=== PATIENT | female | born 1990 | race Caucasian/White ===

== ENCOUNTER 2024-11-28 09:18 | Outpatient (OUT) | payer OTHER, SELFPAY ==
[2024-11-28 10:02] LABS: Basophils Percent Auto 0.2 % (0.2-2.0); Eosinophils Absolute Auto 0.1 10^3/uL (0.0-0.7); Eosinophils Percent Auto 1.5 % (0.9-7.0); Hematocrit 33.9 % (36.0-48.0); Hemoglobin 11.2 g/dL (12.0-16.0); Immature Granulocytes Abs Auto 0.03 10^3/uL (0.00-0.03); Immature Granulocytes Pct Auto 0.3 % (0.0-0.5); Lymphocytes Absolute Auto 1.9 10^3/uL (1.2-3.8); Lymphocytes Percent Auto 21.3 % (20.5-60.0); Mean Corpuscular Hemoglobin 29.4 pg (26.7-34.0); Mean Platelet Volume 9.4 fL (9.5-13.5); Monocytes Absolute Auto 0.8 10^3/uL (0.3-0.8); Monocytes Percent Auto 8.7 % (1.7-12.0); Neutrophils Absolute Auto 5.9 10^3/uL (1.4-6.5); Platelet Count 355 10^3/uL (150-450); Red Blood Count 3.81 10^6/uL (4.20-5.40); Red Cell Distribution Width 11.9 % (11.0-15.0); White Blood Count 8.7 10^3/uL (4.0-11.0)
[2024-11-28 10:04] LABS: BOX Test Reference Lab UNITY; BOX Test Sent Out UNITY
[2024-11-28 10:33] LABS: Amphetamine Screen Urine NEGATIVE (NEGATIVE); Barbiturates Screen Urine NEGATIVE (NEGATIVE); Benzodiazepines Screen Urine NEGATIVE (NEGATIVE); Buprenorphine Screen Urine NEGATIVE (NEGATIVE); Cannabinoid Screen Urine NEGATIVE (NEGATIVE); Cocaine Screen Urine NEGATIVE (NEGATIVE); Methadone Screen Urine NEGATIVE (NEGATIVE); Methamphetamines Screen Urine NEGATIVE (NEGATIVE); Opiate Screen Urine NEGATIVE (NEGATIVE); Oxycodone Screen Urine NEGATIVE (NEGATIVE); Phencyclidine Screen Urine NEGATIVE (NEGATIVE); Tricyclic Antidepressant Urine NEGATIVE (NEGATIVE)
[2024-11-28 10:37] LABS: Estimated Average Glucose 100 mg/dL; Glycohemoglobin A1C 5.1 % (4.5-6.2)
[2024-11-29 06:08] LABS: HBsAg Screen Negative (Negative); HCV Ab Non Reactive (Non Reactive); HIV Ab/p24 Ag Screen Non Reactive (Non Reactive)
[2024-11-29 07:10] LABS: Rubella Antibodies, IgG 1.26 index (Immune >0.99)
[2024-11-29 12:28] LABS: Rapid Plasma Reagin, Quant Non Reactive titer (NonRea<1:1)
== END 2024-11-28 09:19 | disposition home or self-care (01) ==
PROVIDERS: PCP Internal Medicine; Visit Provider Obstetrics & Gynecology
DX: Z34.01 Encounter for supervision of normal first pregnancy, first trimester (principal); Z36.0 Encounter for antenatal screening for chromosomal anomalies; N92.6 Irregular menstruation, unspecified
CPT/HCPCS: 36415; 80307; 83036; 85025; 86592; 86762; 86803; 86850; 86900; 86901; 87086; 87150; 87186; 87340; 87389

== ENCOUNTER 2024-12-18 11:38 | Emergency (ER) | payer OTHER, SELFPAY ==
--- OUTSIDE RECORDS SUMMARY | 2024-12-18 11:46 | XMS_ITS | CCD ---
Author Organization [facility] Care Team Providers Care Mortgage Loan Officer Name Role Phone ALISA ., UMA Attending Unavailable YUHAS, DR BELTRE Primary Care Unavailable ALISA ., UMA Admitting Unavailable ZIEBER, DR AP Witt Consulting Unavailable ALISA ., UMA Consulting Unavailable YUMAYA, DR BELTRE Primary Care Unavailable RACHEL ., DR KAUR Attending Unavailable RACHEL ., DR KAUR Admitting Unavailable RACHEL ., DR KAUR Admitting Unavailable RACHEL ., DR KAUR Consulting Unavailable MIS, DR PERKINS Primary Care Unavailable RACHEL ., DR KAUR Attending Unavailable RACHEL ., DR KUAR Admitting Unavailable MISC, DR PERKINS Primary Care Unavailable RACHEL ., DR KAUR Consulting Unavailable RACHEL ., DR KAUR Attending Unavailable ZIEBER, DR AP Witt Consulting Unavailable RACHEL ., DR AKUR Consulting Unavailable YUCINDAS, DR BELTRE Primary Care Unavailable RACHEL ., DR KAUR Attending Unavailable RACHEL ., DR KAUR Admitting Unavailable RACHEL ., DR KAUR Admitting Unavailable RACHEL ., DR KAUR Consulting Unavailable YUCINDAS, DR BELTRE Primary Care Unavailable RACHEL ., DR KAUR Attending Unavailable RACHEL ., DR KAUR Admitting Unavailable RACHEL ., DR KAUR Consulting Unavailable RACHEL ., DR KAUR Attending Unavailable YUCINDAS, DR BELTRE Primary Care Unavailable RACHEL ., DR KAUR Admitting Unavailable YUHAS, DR BELTRE Primary Care Unavailable RACHEL ., DR KAUR Attending Unavailable GAYLORD, DR REINA Holly Consulting Unavailable RACHEL ., DR KAUR Consulting Unavailable RACHEL ., DR KAUR Admitting Unavailable RACHEL ., DR KAUR Consulting Unavailable DAJA, DR BELTRE Primary Care Unavailable RACHEL ., DR KAUR Attending Unavailable RACHEL ., DR KAUR Consulting Unavailable YUHAS, DR BELTRE Primary Care Unavailable RACHEL ., DR KAUR Attending Unavailable RACHEL ., DR KAUR Admitting Unavailable SHAYNE UAGLDE Consulting Unavailable RACHEL ., DR KAUR Procedure Practitioner Unavail able CRISTY RODRIGUEZ Consulting Unavailable DAJA, DR BELTRE Primary Care Unavailable ROGELIO ., CRISSY Attending Unavailable ARI ., BEBE KABA Consulting Unavailkatarina MERCADO ., CRISSY Admitting Unavailable ALLEN ., J CARLOS Consulting Unavailable ALLEN ., J CARLOS Attending Unavailable ALLEN ., J CARLOS Admitting Unavailable [facility], DR PERKINS Primary Care Unavailable YUHAS, ALEXSANDER Garber Referring Unavailable YUHAS, ALEXSANDER Garber Primary Care Unavailable YUHAS, ALEXSANDER Garber Attending Unavailable YUHAS, ALEXSANDER Garber Referring Unavailable YUHAS, ALEXSANDER Garber Primary Care Unavailable YUHAS, ALEXSANDER Garber Attending Unavailable YUHAS, ALEXSANDER Garber Referring Unavailable YUHAS, ALEXSANDER Garber Primary Care Unavailable KIRA BERRY Attending Unavailable YUHAS, ALEXSANDER Garber Referring Unavailable YUHAS, ALEXSANDER Garber Primary Care Unavailable YUHAS, ALEXSANDER Garber Attending Unavailable YUHAS, ALEXSANDER Garber Referring Unavailable YUHAS, ALEXSANDER Garber Primary Care Unavailable YUHAS, ALEXSANDER Garber Attending Unavailable YUHAS, ALEXSANDER Garber Referring Unavailable YUHAS, ALEXSANDER Garber Primary Care Unavailable YUHAS, ALEXSANDER Garber Attending Unavailable YUHAS, ALEXSANDER Garber Referring Unavailable YUHAS, ALEXSANDER Garber Primary Care Unavailable Leilas Alexsander RICE Primary Care Provider Alexsander Farnsworth DO Primary Care Provider [phone] Medications Current Medications Medication Drug Class(es) Dates Sig (Normalized) Sig (Original) norethindrone 0.35 mg oral tablet (1 source) Start: 04-14-2023 End: 11-18-2024 take 1 tablet by mouth in the morning norethindrone (Micronor) 0.35 MG tablet Indications: control counseling Take 1 tablet (0.35 mg) by mouth in the morning. 28 tablet 11 04/14/2023 11/18/2024 Discontinued (Therapy completed) Vit-Fe Fumarate-FA ( Vitamin) 27-0.8 MG tablet (2 sources) Vit-Fe Fumarate-FA ( Vitamin) 27-0.8 MG tablet 1 (one) time each day at the same time Active Completed/Discontinued Medications Medication Drug Class(es) Dates Sig (Normalized) Sig (Original) ondansetron 4 mg disintegrating oral tablet (2 sources) Serotonin-3 Receptor Antagonist Start: 01-25-2024 End: 05-16-2024 take 1 tablet by mouth every eight hours as needed for nausea and vomiting ondansetron ODT (ZOFRAN ODT) 4 mg disintegrating tablet Dissolve 1 tablet (4 mg total) on tongue every 8 (eight) hours as needed for nausea or vomiting. 20 tablet 01/25/2024 05/16/2024 Discontinued (Therapy completed) Problems Active Problems Problem Classification Problem Date Documented Date Episodic/Chronic Deficiency and other anemia (1 source) Anemia, unspecified; Translations: [ANEMIA UNSPECIFIED] Onset: 03-11-2023 Episodic Genitourinary symptoms and ill-defined conditions (1 source) Personal history of urinary (tract) infections; Translations: [PERS HX URINARY TRACT INFECTIONS] Onset: 03-11-2023 Episodic Menstrual disorders (5 sources) Irregular menstruation, unspecified; Translations: [Missed period] Onset: 08-09-2022 Chronic Other aftercare (1 source) Other termite inspector (current) drug therapy; Translations: [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] Onset: 03-11-2023 Episodic Other circulatory disease (1 source) Other specified symptoms and signs involving the circulatory and respiratory systems; Translations: [Other specified symptoms and signs involving the circulatory and respiratory systems] Onset: 08-19-2024 Episodic Other complications of ; puerperium affecting management of mother (1 source) Anemia complicating childbirth; Translations: [ANEMIA COMPLICATING CHILDBIRTH] Onset: 03-11-2023 Chronic Other complications of ; puerperium affecting management of mother (1 source) Anemia complicating the puerperium; Translations: [ANEMIA COMPLICATING THE PUERPERIUM] Onset: 03-11-2023 Chronic Other complications of (1 source) Anemia complicating , second trimester; Translations: [ANEMIA COMP SECOND TRI] Onset: 12-11-2022 Chronic Other female genital disorders (1 source) Personal history of other diseases of the female genital tract; Translations: [PERSONAL HX OTH DZ FE GENITAL TRACT] Onset: 03-11-2023 Episodic Other and delivery including normal (17 sources) Encounter for routine follow-up; Translations: [Single live ] Onset: 08-04-2022 Episodic Other screening for suspected conditions (not mental disorders or infectious disease) (6 sources) Encounter for screening for Streptococcus B; Translations: [Encounter for screening, unspecified] Onset: 08-13-2022 Episodic Previous (3 sources) Maternal care for low transverse scar from previous delivery; Translations: [MAT CARE LW TRANS SCAR PREV C/S DEL] Onset: 03-05-2023 Episodic Residual codes; unclassified (1 source) 39 weeks gestation of ; Translations: [39 WEEKS GESTATION OF ] Onset: 03-11-2023 Episodic Residual codes; unclassified (1 source) Family history of diabetes mellitus; Translations: [FAMILY HISTORY OF DIABETES MELLITUS] Onset: 03-11-2023 Episodic Residual codes; unclassified (1 source) Family history of stroke; Translations: [FAMILY HISTORY OF STROKE] Onset: 03-11-2023 Episodic Residual codes; unclassified (1 source) Family history of other disorder of lipoprotein metabolism and other lipidemia; Translations: [FAM HX D/O LIPOPR METAB OTH LIPID] Onset: 03-11-2023 Episodic Residual codes; unclassified (1 source) Family history of arthritis; Translations: [FAMILY HISTORY OF ARTHRITIS] Onset: 03-11-2023 Episodic Residual codes; unclassified (1 source) 35 weeks gestation of ; Translations: [35 WEEKS GESTATION OF ] Onset: 02-15-2023 Episodic Residual codes; unclassified (1 source) Gestation period, 10 weeks; Translations: [10 weeks gestation of ] 11-18-2024 Episodic Unclassified (1 source) CONTACT W/AND (SUSP) EXPOS COVID-19; Translations: [CONTACT W/AND (SUSP) EXPOS COVID-19] Onset: 10-14-2022 Unclassified (1 source) low bp 86/66 Onset: 05-16-2024 Past or Other Problems Problem Classification Problem Date Documented Date Episodic/Chronic Cardiac dysrhythmias (5 sources) Palpitations; Translations: [Palpitations] Onset: 05-16-2024 05-16-2024 Episodic Conditions associated with dizziness or vertigo (6 sources) Dizziness and giddiness; Translations: [Dizziness] Onset: 12-09-2022 Episodic Fluid and electrolyte disorders (2 sources) Hypokalemia; Translations: [Dehydration] Onset: 10-14-2022 Episodic Headache; including migraine (1 source) Headache Onset: 01-25-2024 Episodic Immunizations and screening for infectious disease (2 sources) Encounter for screening for infections with a predominantly sexual mode of transmission; Translations: [Contact with and (suspected) exposure to infections with a predominantly sexual mode of transmission] Onset: 08-13-2022 Episodic Mood disorders (5 sources) Mood disorders Onset: 05-16-2024 Resolved: 08-19-2024 05-16-2024 Nausea and vomiting (5 sources) Nausea with vomiting, unspecified; Translations: [Vomiting] Onset: 10-11-2022 Episodic Noninfectious gastroenteritis (6 sources) Noninfective gastroenteritis and colitis, unspecified; Translations: [Gastroenteritis] Onset: 01-25-2024 Resolved: 01-28-2024 01-28-2024 Episodic Other circulatory disease (2 sources) Orthostatic hypotension; Translations: [Orthostatic hypotension] Onset: 05-16-2024 Episodic Other circulatory disease (3 sources) Orthostatic hypotension; Translations: [Orthostatic hypotension] 05-16-2024 Episodic Other circulatory disease (1 source) Upper respiratory tract finding; Translations: [Other specified symptoms and signs involving the circulatory and respiratory systems] 08-19-2024 Episodic Other complications of (1 source) Uterine size-date discrepancy, second trimester; Translations: [UTERINE SZ-DATE DISCREPANCY 2ND TRI] Onset: 12-18-2022 Episodic Other complications of (1 source) Unspecified infection of urinary tract in , second trimester; Translations: [UNS INF URINARY TRACT PREG 2ND TRI] Onset: 12-11-2022 Episodic Other complications of (1 source) Other specified related conditions, second trimester; Translations: [OTH SPEC PREG RELATED COND 2ND TRI] Onset: 12-11-2022 Episodic Other diseases of kidney and ureters (5 sources) Hydronephrosis; Translations: [Unspecified hydronephrosis] Onset: 05-14-2017 05-14-2017 Episodic Other female genital disorders (1 source) Other specified noninflammatory disorders of vagina; Translations: [OTH SPEC NONINFLAMMATORY D/O VAGINA] Onset: 11-27-2022 Episodic Other upper respiratory disease (1 source) Pain in throat Onset: 01-25-2024 Episodic Other upper respiratory infections (2 sources) Acute pharyngitis, unspecified; Translations: [Pharyngitis] Onset: 01-25-2024 01-25-2024 Episodic Residual codes; unclassified (1 source) 27 weeks gestation of ; Translations: [27 WEEKS GESTATION OF ] Onset: 12-18-2022 Episodic Residual codes; unclassified (1 source) 26 weeks gestation of ; Translations: [26 WEEKS GESTATION OF ] Onset: 12-11-2022 Episodic Residual codes; unclassified (1 source) 17 weeks gestation of ; Translations: [17 WEEKS GESTATION OF ] Onset: 10-14-2022 Episodic Residual codes; unclassified (1 source) Other general symptoms and signs; Translations: [Other general symptoms and signs] Onset: 01-25-2024 Episodic Residual codes; unclassified (1 source) Viral syndrome; Translations: [Other general symptoms and signs] 01-25-2024 Episodic Urinary tract infections (6 sources) Urinary tract infection, site not specified; Translations: [Urinary tract infectious disease] Onset: 05-14-2017 05-14-2017 Episodic Results Test Name Value Interpretation Reference Range Facility ALL CBC WITH AUTO DIFFon BASOPHILS ABSOLUTE AUTO 0 [facility] Basophils/100 WBC (Bld) 0.2 % 0.2 - 2.0 % [facility] Eosinophils/100 WBC (Bld) 1.5 % 0.9 - 7.0 % [facility] Erythrocyte distribution width (RBC) [Ratio] 11.9 % 11.0 - 15.0 % [facility] Hematocrit (Bld) [Volume fraction] 33.9 % Low 36.0 - 48.0 % [facility] Hem[facility] (Bld) [Mass/Vol] 11.2 g/dL Low 12.0 - 16.0 g/dL [facility] IMMATURE GRANULOCYTES ABS AUTO 0.03 [facility] Immature granulocytes/100 WBC (Bld) 0.3 % 0.0 - 0.5 % [facility] Interpretation and review of laboratory results Abnormal [facility] LYMPHOCYTES ABSOLUTE AUTO 1.9 [facility] Lymphocytes/100 WBC (Bld) 21.3 % 20.5 - 60.0 % [facility] MCH (RBC) [Entitic mass] 29.4 pg 26.7 - 34.0 pg [facility] MCHC (RBC) [Mass/Vol] 33 g/dL 29.9 - 35.2 g/dL [facility] MCV (RBC) [Entitic vol] 89 fL 81.0 - 99.0 fL [facility] MONOCYTES ABSOLUTE AUTO 0.8 [facility] Monocytes/100 WBC (Bld) 8.7 % 1.7 - 12.0 % [facility] NEUTROPHILS ABSOLUTE AUTO 5.9 [facility] Neutrophils/100 WBC (Bld) 68 % 43.0 - 75.0 % [facility] Platelet mean volume (Bld) [Entitic vol] 9.4 fL Low 9.5 - 13.5 fL [facility] # 0.1 [facility] e TB PLT 355 [facility] e TB RBC 3.81 Low [facility] e TB WBC 8.7 [facility] e CLINISYNC [facility] e HCG ( test) Ql (U)o n 11-18-2024 Interpretation and review of laboratory results Abnormal [facility] Preg Test, Ur Positive Negative [facility] Urinalysis macro (dipstick) panel (U)on 11-18-2024 Bilirubin, UA Negative Negative - 4(70) +++ mg/dL [facility] Blood, UA Positive Negative - 50 Otoniel/mcL [facility] Comment on above: trace Clarity, UA Cloudy [facility] re Color, UA Yellow [facility] e Glucose, UA Negative Negative - 1999(110) ++++ mg/dL [facility] Interpretation and review of laboratory results Abnormal [facility] Ketones, UA Negative Negative - 160(16) ++++ mg/dL [facility] Leukocytes, UA Moderate Negative - 500+++ [place]/mcL [facility] Nitrite, UA Negative Negative - Positive [facility] pH, UA 6.5 5 - 9 [facility] e Protein, UA Positive Negative - 1999(20) ++++ mg/dL [facility] Comment on above: 100 Spec Grav, UA 1.02 1 - 1.03 [facility] Urobilinogen, UA 0.2 0.2 - 12 mg/dL [facility] POCT Influenza A/Influenza B /SARS-COV-2 Veritoron 08-19-2024 External Poct Influenza A Antigen Negative [facility] External Poct Influenza B Antigen Negative [facility] SARS-CoV-2 (COVID-19) Ag IA.rapid Ql (Resp) Negative [facility] POCT rapid strep Aon 024 S. pyogenes Ag IA Ql (Unsp spec) Negative Negative [facility] CBC AND AUTO DIFFon 05-16-20 24 ABSOLUTE BASOPHIL 0.0 X10E9/L Normal 0.0-0.2 [facility] Comment on above: Performed By: #### C BCA, CMP, FEPR, TSHR, 2132-06 #### [facility] ([id number]) [address], [address] [place] [address] ABSOLUTE NEUTROPHIL 7.0 X10E9/L High 1.5-6.6 [facility] Comment on above: Performed By: #### C BCA, CMP, FEPR, TSHR, 2132-06 #### [facility] ([id number]) [address], [address] [place] [address] Basophils/100 WBC (Bld) 0.3 % Normal [facility] Comment on above: Performed By: #### C BCA, CMP, FEPR, TSHR, 2132-06 #### [facility] ([id number]) [address], [address] [place] [address] Eosinophils (Bld) [#/Vol] 0.1 10*3/uL Normal 0.0-0.4 [facility] Comment on above: Performed By: #### C BCA, CMP, FEPR, TSHR, 2132-06 #### [facility] ([id number]) [address], [address] [place] [address] Eosinophils/100 WBC (Bld) 1.4 % Normal [facility] Comment on above: Performed By: #### C BCA, CMP, FEPR, TSHR, 2132-06 #### [facility] ([id number]) [address] [place] [address] Erythrocyte distribution width (RBC) [Ratio] 13.3 % Normal 11.5-15.0 [facility] Comment on above: Performed By: #### C BCA, CMP, FEPR, TSHR, 2132-06 #### [facility] ([id number]) [address] [address] Hematocrit (Bld) [Volume fraction] 38.8 % Normal 35-47 [facility] Comment on above: Performed By: #### C BCA, CMP, FEPR, TSHR, 2132-06 #### [facility] ([id number]) [address] [address] Hemoglobin (Bld) [Mass/Vol] 13.0 g/dL Normal 11.7-15.5 [facility] Comment on above: Performed By: #### C BCA, CMP, FEPR, TSHR, 2132-06 #### [facility] ([id number]) [address] [address] Lymphocytes (Bld) [#/Vol] 2.4 10*3/uL Normal 1.0-3.5 [facility] Comment on above: Performed By: #### C BCA, CMP, FEPR, TSHR, 2132-06 #### [facility] ([id number]) [address] [address] Lymphocytes/100 WBC (Bld) 23.1 % Normal [facility] Comment on above: Performed By: #### C BCA, CMP, FEPR, TSHR, 2132-06 #### [facility] ([id number]) [address] [address] MCH (RBC) [Entitic mass] 30.0 pg Normal 27-34 [facility] Comment on above: Performed By: #### C BCA, CMP, FEPR, TSHR, 2132-06 #### [facility] ([id number]) [address] [place] [address] MCHC (RBC) [Mass/Vol] 33.5 g/dL Normal 32-36 [facility] Comment on above: Performed By: #### C BCA, CMP, FEPR, TSHR, 2132-06 #### [facility] ([id number]) [address] [place] [address] MCV (RBC) [Entitic vol] 90 fL Normal 80-100 [facility] Comment on above: Performed By: #### C BCA, CMP, FEPR, TSHR, 2132-06 #### [facility] ([id number]) [address] [place] [address] Monocytes (Bld) [#/Vol] 0.7 10*3/uL Normal 0-0.9 [facility] Comment on above: Performed By: #### C BCA, CMP, FEPR, TSHR, 2132-06 #### [facility] ([id number]) [address] [place] [address] Monocytes/100 WBC (Bld) 7.0 % Normal [facility] Comment on above: Performed By: #### C BCA, CMP, FEPR, TSHR, 2132-06 #### [facility] ([id number]) [address] [place] [address] Neutrophils/100 WBC (Bld) 68.2 % Normal [facility] Comment on above: Performed By: #### C BCA, CMP, FEPR, TSHR, 2132-06 #### [facility] ([id number]) [address] [facility] [address] [place] [address] Platelet mean volume (Bld) [Entitic vol] 8.3 fL Normal 7-12 [facility] Comment on above: Performed By: #### C BCA, CMP, FEPR, TSHR, 2132-06 #### [facility] ([id number]) [address], [address] [place] [address] Platelets (Bld) [#/Vol] 348 10*3/uL Normal 150-450 [facility] Comment on above: Performed By: #### C BCA, CMP, FEPR, TSHR, 2132-06 #### [facility] ([id number]) [address] [place] [address] RBC COUNT 4.33 X10E12/L Normal 3.80-5.20 [facility] Comment on above: Performed By: #### C BCA, CMP, FEPR, TSHR, 2132-06 #### [facility] ([id number]) [address], [address] [place] [address] WBC (Bld) [#/Vol] 10.2 10*3/uL Normal 4.0-11.0 [facility] Comment on above: Performed By: #### C BCA, CMP, FEPR, TSHR, 2132-06 #### [facility] ([id number]) [address], [address] [place] [address] [address] [facility] 05-16-2024 Albumin [Mass/Vol] 4.7 g/dL Normal 3.2-5.3 [facility] Comment on above: Performed By: #### C BCA, CMP, FEPR, TSHR, 2132-06 #### [facility] ([id number]) [address], [address] [place] [address] ALP [Catalytic activity/Vol] 94 U/L Normal 39-130 [facility] Comment on above: Performed By: #### C BCA, CMP, FEPR, TSHR, 2132-06 #### [facility] ([id number]) [address], [address] [place] [address] ALT [Catalytic activity/Vol] 16 U/L Normal 0-31 [facility] Comment on above: Performed By: #### C BCA, CMP, FEPR, TSHR, 2132-06 #### [facility] ([id number]) [address] [place] [address] Anion gap [Moles/Vol] 9 mmol/L Normal 5-15 [facility] Comment on above: Performed By: #### C BCA, CMP, FEPR, TSHR, 2132-06 #### [facility] ([id number]) [address] [place] [address] AST [Catalytic activity/Vol] 23 U/L Normal 0-41 [facility] Comment on above: Performed By: #### C BCA, CMP, FEPR, TSHR, 2132-06 #### [facility] ([id number]) [address], [address] [place] [address] Bilirubin [Mass/Vol] 0.2 mg/dL Low 0.3-1.2 [facility] Comment on above: Performed By: #### C BCA, CMP, FEPR, TSHR, 2132-06 #### [facility] ([id number]) [address] [place] [address] Calcium [Mass/Vol] 9.8 mg/dL Normal 8.5-10.5 [facility] Comment on above: Performed By: #### C BCA, CMP, FEPR, TSHR, 2132-06 #### [facility] ([id number]) [address], [address] [place] [address] Chloride [Moles/Vol] 103 mmol/L Normal 98-109 [facility] Comment on above: Performed By: #### C BCA, CMP, FEPR, TSHR, 2132-06 #### [facility] ([id number]) [address] [place] [address] CO2 [Moles/Vol] 27 mmol/L Normal 22-32 [facility] Comment on above: Performed By: #### C BCA, CMP, FEPR, TSHR, 2132-06 #### [facility] ([id number]) [address], [facility] [address] [place] [address] Creatinine [Mass/Vol] 0.74 mg/dL Normal 0.40-1.00 [facility] Comment on above: Result Comment: METH OD TRACEABLE TO IDMS STANDARD Performed By: #### C BCA, CMP, FEPR, TSHR, 2132-06 #### [facility] ([id number]) [address] [address] eGFR (CKD-EPI) NON-RACE DEPENDENT >90 Normal >59 [facility] Comment on above: Result Comment: Reported eGFR is based on the CKD-EPI 2020 equation that does not use a race coefficient. Performed By: #### C BCA, CMP, FEPR, TSHR, 2132-06 #### [facility] ([id number]) [address] [place] [address] Glucose [Mass/Vol] 84 mg/dL Normal 65-99 [facility] Comment on above: Performed By: #### C BCA, CMP, FEPR, TSHR, 2132-06 #### [facility] ([id number]) [address] [place] [address] Potassium [Moles/Vol] 4.0 mmol/L Normal 3.5-5.0 [facility] Comment on above: Performed By: #### C BCA, CMP, FEPR, TSHR, 2132-06 #### [facility] ([id number]) [address] [place] [address] Protein [Mass/Vol] 7.7 g/dL Normal 6.0-8.0 [facility] Comment on above: Performed By: #### C BCA, CMP, FEPR, TSHR, 2132-06 #### [facility] ([id number]) [address] [place] [address] Sodium [Moles/Vol] 139 mmol/L Normal 134-146 [facility] Comment on above: Performed By: #### C BCA, CMP, FEPR, TSHR, 2132-06 #### [facility] ([id number]) [address], [facility] [address] [place] [address] Urea nitrogen [Mass/Vol] 16 mg/dL Normal 5-23 [facility] Comment on above: Performed By: #### C BCA, CMP, FEPR, TSHR, 2132-06 #### [facility] ([id number]) [address], [address] [place] [address] IRON PROFILEon 05-16-2024 Iron [Mass/Vol] 88 ug/dL Normal 50-170 [facility] Comment on above: Performed By: #### C BCA, CMP, FEPR, TSHR, 2132-06 #### [facility] ([id number]) [address], [address] [address] IRON BINDING 505 ug/dL High 250-425 [facility] Comment on above: Performed By: #### C BCA, CMP, FEPR, TSHR, 2132-06 #### [facility] ([id number]) [address], [address] [place] [address] IRON SATURATION 17 % SATURATION Normal 15-50 [facility] Comment on above: Performed By: #### C BCA, CMP, FEPR, TSHR, 2132-06 #### [facility] ([id number]) [address] [address] TSH WITH REFLEXon 05-16-2024 TSH 2.05 uIU/mL Normal 0.49-4.67 [facility] Comment on above: Performed By: #### C BCA, CMP, FEPR, TSHR, 2132-06 #### [facility] ([id number]) [address] [place] [address] VITAMIN B12on 05-16-2024 Cobalamin (Vitamin B12) [Mass/Vol] 334 pg/mL Normal 180-914 [facility] Comment on above: Performed By: #### C BCA, CMP, FEPR, TSHR, 2132-06 #### [facility] ([id number]) [address] [place] [address] POCT Influenza A/Influenza B /SARS-COV-2 Veritoron 01-25-2024 External Poct Influenza A Antigen Negative [facility] External Poct Influenza B Antigen Negative [facility] SARS-CoV-2 (COVID-19) Ag IA.rapid Ql (Resp) Negative [facility] POCT rapid strep Aon 024 S. pyogenes Ag IA Ql (Unsp spec) Negative Negative [facility] PRBC LEUKOREDUCEDon 03-08-20 ABO and Rh group Nom (Bld) Cross Match Result Compatible Unit Blood Type A Pos Unit Number [id number] Status Information Released Specimen Exp Date Product ID Red Blood Cells Product Code [id number] Cross Match Result Compatible Unit Blood Type A Pos Unit Number [id number] Status Information Issued Product ID Red Blood Cells Product Code [id number] Issue Date/Time [id number] Normal [facility] Comment on above: Performed By: #### P RBC #### [facility] [address] [place] [address] Dr. Paula Hernandez CULTURE URINEon 03-07-2023 CULTURE URINE Isolate 1 Escherichia coli >100,000 cfu/mL of ORGANISM 1 Escherichia coli ANTIBIOTIC M.I.C RX STATUS Ampicillin >=32 R F Ampicillin/Sulbactam >=32 R F Piperacillin/Tazobact am <=4 S F Cefazolin 8 S F Ceftazidime <=1 S F Ceftriaxone <=1 S F Ertapenem <=0.5 S F Imipenem <=0.25 S F Amikacin <=2 S F Gentamicin <=1 S F Tobramycin <=1 S F Ciprofloxacin 1 S F Levofloxacin 1 S F Nitrofurantoin <=16 S F Trimethoprim/Sulfamet hoxazole <=20 S F Normal [facility] Comment on above: Performed By: #### U RCX #### [facility] [address] [place] [address] Dr. Paula Hernandez PRBC LEUKOREDUCEDon 03-07-20 ABO and Rh group Nom (Bld) Cross Match Result Compatible Unit Blood Type A Pos Unit Number [id number] Status Information Released Specimen Exp Date [id number] Product ID Red Blood Cells Product Code [id number] Normal [facility] Comment on above: Performed By: #### P RBC #### [facility] [address] [place] [address] Dr. Paula Hernandez CBC AUTO DIFFon 03-06-2023 BASO # 0.0 103/ul Normal 0.0-0.1 [facility] Comment on above: Performed By: #### C BC ####[facility] P[address] [place], [place] [address]Dr. Paula Hernandez Basophils/100 WBC (Bld) 0.2 % Normal 0.2-2.0 [facility] Comment on above: Performed By: #### C BC ####[facility] [address] [place], [place] [address]Dr. Paula Hernandez EO # 0.1 103/ul Normal 0.0-0.7 [facility] Comment on above: Performed By: #### C BC ####[facility] M[address]xq[address] [place], [place] [address]Dr. Paula Hernandez Eosinophils/100 WBC (Bld) 0.4 % Critically low 0.9-7.0 [facility] Comment on above: Performed By: #### C BC ####[facility] Cpnectndib[address] [place], [place] [address]Dr. Paula Hernandez Erythrocyte distribution width (RBC) [Ratio] 13.9 % Normal 11.0-15.0 [facility] Comment on above: Performed By: #### C BC ####[facility] [address] [place] [address]Dr. Yolandafrance Hernandez Hematocrit (Bld) [Volume fraction] 21.1 % Critically low 36.0-48.0 [facility] Comment on above: Performed By: #### C BC ####[facility] [address] [place] [address]Dr. Paula Hernandez Hemoglobin (Bld) [Mass/Vol] 6.5 g/dL Critically low 12.0-16.0 [facility] Comment on above: Performed By: #### C BC ####[facility] [address] [place] [address]Dr. Paula Hernandez IG # 0.22 10e3/ul Critically high 0.00-0.03 [facility] Comment on above: Performed By: #### C BC ####[facility] [address] [place], [place] [address]Dr. Paula Hernandez IG % 1.2 % Critically high 0.0-0.5 [facility] Comment on above: Performed By: #### C BC ####[facility] X[address] [place], [place] [address]Dr. Paula Hernandez LYMPH # 2.7 103/ul Normal 1.2-3.8 [facility] Comment on above: Performed By: #### C BC ####[facility] [address] [place], [place] [address]Dr. Paula Hernandez Lymphocytes/100 WBC (Bld) 14.2 % Critically low 20.5-60.0 [facility] Comment on above: Performed By: #### C BC ####[facility] [address] [place] [address]Dr. Paula Hernandez MANUAL DIFF REQ NO Normal [facility] Comment on above: Performed By: #### C BC ####[facility] [address] [place], [place] [address]Dr. Paula Hernandez MCH (RBC) [Entitic mass] 26.2 pg Critically low 26.7-34.0 [facility] Comment on above: Performed By: #### C BC ####[facility] [address] [place] [address]Dr. Paula Hernandez MCHC (RBC) [Mass/Vol] 30.8 g/dL Normal 29.9-35.2 [facility] Comment on above: Performed By: #### C BC ####[facility] [address] [place] [address]Dr. Paula Hernandez MCV (RBC) [Entitic vol] 85.1 fL Normal 81.0-99.0 [facility] Comment on above: Performed By: #### C BC ####[facility] [address] [place] [address]Dr. Paula Hernandez MONO # 1.4 103/ul Critically high 0.3-0.8 [facility] Comment on above: Performed By: #### C BC ####[facility] [address] [place] [address]Dr. Paula Hernandez Monocytes/100 WBC (Bld) 7.3 % Normal 1.7-12.0 [facility] Comment on above: Performed By: #### C BC ####[facility] [address] [place] [address]Dr. Paula Hernandez NEUT # 14.5 103/ul Critically high 1.4-6.5 [facility] Comment on above: Performed By: #### C BC ####[facility] [address] [place] [address]Dr. Paula Hernandez Neutrophils/100 WBC (Bld) 76.7 % Critically high 43.0-75.0 [facility] Comment on above: Performed By: #### C BC ####[facility] T[address] [place] [address]Dr. Paula Hernandez Platelet mean volume (Bld) [Entitic vol] 9.5 fL Normal 9.5-13.5 [facility] Comment on above: Performed By: #### C BC ####[facility] [address] [place] [address]Dr. Paula Hernandez PLT 378 103/ul Normal 150-450 [facility] Comment on above: Performed By: #### C BC ####[facility] V[address]pd[address]efc[address] [place] [address]Dr. Paula Hernandez RBC 2.48 106/ul Critically low 4.20-5.40 [facility] Comment on above: Performed By: #### C BC ####[facility] Z[address]cwpqn8[address] [place] [address]Dr. Paula Hernandez WBC 19.0 103/ul Critically high 4.0-11.0 [facility] Comment on above: Performed By: #### C BC ####[facility] Z[address]awbbr[address] [place] [address]Dr. Paula Hernandez CBC AUTO DIFFon 03-05-2023 BASO # 0.0 103/ul Normal 0.0-0.1 [facility] Comment on above: Performed By: #### C BC ####[facility] [address] [place], [place] [address]Dr. Yolandafrance Hernandez Basophils/100 WBC (Bld) 0.4 % Normal 0.2-2.0 [facility] Comment on above: Performed By: #### C BC ####[facility] Cx[address] [place], [place] [address]Dr. Paula Hernandez EO # 0.1 103/ul Normal 0.0-0.7 [facility] Comment on above: Performed By: #### C BC ####[facility] [address] [place], [place] [address]Dr. Paula David Eosinophils/100 WBC (Bld) 1.3 % Normal 0.9-7.0 [facility] Comment on above: Performed By: #### C BC ####[facility] R[address]vesi[address] [place], [place] [address]Dr. Paula Hernandez Erythrocyte distribution width (RBC) [Ratio] 14.2 % Normal 11.0-15.0 [facility] Comment on above: Performed By: #### C BC ####[facility] [address] [place], [place] [address]Dr. Paula Hernandez Hematocrit (Bld) [Volume fraction] 24.8 % Critically low 36.0-48.0 [facility] Comment on above: Performed By: #### C BC ####[facility] [address]es[address]ym[address] [place] [address]Dr. Paula Hernandez Hemoglobin (Bld) [Mass/Vol] 7.7 g/dL Critically low 12.0-16.0 [facility] Comment on above: Performed By: #### C BC ####[facility] [address]ra[address] [place] [address]Dr. Paula Hernandez IG # 0.08 10e3/ul Critically high 0.00-0.03 [facility] Comment on above: Performed By: #### C BC ####[facility] Jdcupllqsg84[address] [place] [address]Dr. Paula Hernandez IG % 0.8 % Critically high 0.0-0.5 [facility] Comment on above: Performed By: #### C BC ####[facility] U[address]ems[address]qst[address] [place] [address]Dr. Paula David LYMPH # 1.9 103/ul Normal 1.2-3.8 [facility] Comment on above: Performed By: #### C BC ####[facility] O[address]uf[address] [place] [address]Dr. Paula Hernandez Lymphocytes/100 WBC (Bld) 18.1 % Critically low 20.5-60.0 [facility] Comment on above: Performed By: #### C BC ####[facility] K[address]bcutdf[address] [place] [address]DrKiara Paula Hernandez MANUAL DIFF REQ NO Normal [facility] Comment on above: Performed By: #### C BC ####[facility] T[address]by[address]fwgw7060 [place] [address]Dr. Paula Hernandez MCH (RBC) [Entitic mass] 26.3 pg Critically low 26.7-34.0 [facility] Comment on above: Performed By: #### C BC ####[facility] Eqbwmaisia4207 [place] [address]Dr. Paula Henrandez MCHC (RBC) [Mass/Vol] 31.0 g/dL Normal 29.9-35.2 [facility] Comment on above: Performed By: #### C BC ####[facility] Fp[address]yrwpafc16[address] [place] [address]Dr. Paula Hernandez MCV (RBC) [Entitic vol] 84.6 fL Normal 81.0-99.0 [facility] Comment on above: Performed By: #### C BC ####[facility] Q[address]cucmk27[address] [place] [address]Dr. Paula Hernandez MONO # 1.2 103/ul Critically high 0.3-0.8 [facility] Comment on above: Performed By: #### C BC ####[facility] Oqqdtlaxdl4661 [place] [address]Dr. Paula Hernandez Monocytes/100 WBC (Bld) 11.7 % Normal 1.7-12.0 [facility] Comment on above: Performed By: #### C BC ####[facility] Cjzzqnj[address] [place], [place] [address]Dr. Paula Hernandez NEUT # 7.0 103/ul Critically high 1.4-6.5 [facility] Comment on above: Performed By: #### C BC ####[facility] L[address]ys[address]wfud[address] [place], [place] [address]Dr. Paula Hernandez Neutrophils/100 WBC (Bld) 67.7 % Normal 43.0-75.0 [facility] Comment on above: Performed By: #### C BC ####[facility] Su[address] [place], [place] [address]Dr. Paula Hernandez Platelet mean volume (Bld) [Entitic vol] 9.5 fL Normal 9.5-13.5 [facility] Comment on above: Performed By: #### C BC ####[facility] Hfjfxzlulw0375 [place] [address]Dr. Paula Hernandez PLT 427 103/ul Normal 150-450 [facility] Comment on above: Performed By: #### C BC ####[facility] Clmlmcantu4891 [place] [address]Dr. Yolandafrance David RBC 2.93 106/ul Critically low 4.20-5.40 [facility] Comment on above: Performed By: #### C BC ####[facility] W[address]mpujbx16[address] [place] [address]Dr. Paula Hernandez WBC 10.3 103/ul Normal 4.0-11.0 [facility] Comment on above: Performed By: #### C BC ####[facility] Dbvclrjxvg1076 [place] [address]Dr. Paula Hernandez DRUG SCREEN RAPID (URINE)on 03-05-2023 AMP Negative Normal NEGATIVE [facility] Comment on above: Performed By: #### D RUGRPD ####[facility] A[address] [place] [address]Dr. Paula Hernandez BAR Negative Normal NEGATIVE [facility] Comment on above: Performed By: #### D RUGRPD ####[facility] Zhxc[address]jkszr[address] [place], [place] [address]Dr. Paula Hernandez BUP Negative Normal NEGATIVE [facility] Comment on above: Performed By: #### D RUGRPD ####[facility] [address]uf[address]irtqwm[address] [place], [place] [address]Dr. Paula Hernandez BZO Negative Normal NEGATIVE [facility] Comment on above: Performed By: #### D RUGRPD ####[facility] Dvzdenekmt[address] [place], [place] [address]Dr. Paula Hernandez SHAHID Negative Normal NEGATIVE [facility] Comment on above: Performed By: #### D RUGRPD ####[facility] Umlurjqwun[address] [place], [place] [address]Dr. Paula Hernandez CUT-OFFS SEE BELOW Normal [facility] Comment on above: Result Comment: AMP (Amphetamine): 500ng/mL, BAR (Barbituates): 200 ng/mL, BZO (Benzodiazepines): 150 ng/mL, BUP (Buprenorphine): 10 ng/mL, SHAHID (Cocaine): 150 ng/mL, mAMP (Methamphetamine): 500 ng/mL, MTD (Methadone): 200 ng/mL, OPI (Opiates): 100 ng/mL, OXY (Oxycodone): 100 ng/mL, PCP (Phencyclidine): 25 ng/mL, PPX (Propoxyphene): 300 ng/mL, THC (Cannabinoids): 50 ng/mL, TCA (Trycyclic Antidepressants): 300 ng/mL Performed By: #### D RUGRPD ####[facility] Ukldnvqigd[address] [place], [place] [address]Dr. Paula Hernandez DRUG CUT HEADER DRUG CLASS TEST SYSTEM CUT-OFF CONCENTRATIONS ARE FOLLOWS: Normal [facility] Comment on above: Performed By: #### D RUGRPD ####[facility] Kdquavawan[address] [place], [place] [address]Dr. Paula Hernandez mAMP Negative Normal NEGATIVE [facility] Comment on above: Performed By: #### D RUGRPD ####[facility] Lfvunvpukd[address] [place], [place] [address]Dr. Paula Hernandez MTD Negative Normal NEGATIVE [facility] Comment on above: Performed By: #### D RUGRPD ####[facility] Oqevzuvzlt[address] [place], [place] [address]Dr. Paula Hernandez OPI Negative Normal NEGATIVE [facility] Comment on above: Performed By: #### D RUGRPD ####[facility] [address]wt[address] [place], [place] [address]Dr. Paula Hernandez OXY Negative Normal NEGATIVE [facility] Comment on above: Performed By: #### D RUGRPD ####[facility] Jvrrrphetk[address] [place], [place] [address]Dr. Paula Hernandez PCP Negative Normal NEGATIVE [facility] Comment on above: Performed By: #### D RUGRPD ####[facility] Whxpejdpww[address] [place], [place] [address]Dr. Paula Hernandez PPX Negative Normal NEGATIVE [facility] Comment on above: Performed By: #### D RUGRPD ####[facility] [address]omw[address]orye[address] [place], [place] [address]Dr. Paula Hernandez TCA Negative Normal NEGATIVE [facility] Comment on above: Performed By: #### D RUGRPD ####[facility] Lx[address]zbbmd[address] [place], [place] [address]Dr. Paula Hernandez THC Negative Normal NEGATIVE [facility] Comment on above: Performed By: #### D RUGRPD ####[facility] T[address]oc[address]osq[address] [place] [address]Dr. Paula Hernandez PRBC LEUKOREDUCEDon 03-05-20 ABO and Rh group Nom (Bld) Cross Match Result Compatible Unit Blood Type A Neg Unit Number [id number] Status Information Released Specimen Exp Date Product ID Red Blood Cells Product Code [id number] Cross Match Result Compatible Unit Blood Type A Pos Unit Number [id number] Status Information Released Specimen Exp Date Product ID Red Blood Cells Product Code [id number] Normal [facility] Comment on above: Performed By: #### P RBC #### [facility] [address] [place] [address] Dr. Paula Hernandez TYPE AND SCREENon 03-05-2023 TYPE AND SCREEN Negative Normal [facility] Comment on above: Performed By: #### T NS ####[facility] Kuarnfexfe[address] [place], [place] [address]Dr. Paula Hernandez UA (CLEAN/CATCH) UC ARCHITECT/MICRO I F IND.on 03-05-2023 Bilirubin Ql (U) Negative Normal NEGATIVE [facility] Comment on above: Performed By: #### U RCX #### [facility] [address] [place] [address] Dr. Paula Hernandez Clarity (U) CLEAR Normal CLEAR [facility] Comment on above: Performed By: #### U RCX #### [facility] [address] [place] [address] Dr. Paula Hernandez Color (U) LT. YELLOW Normal YELLOW [facility] Comment on above: Performed By: #### U RCX #### [facility] [address] [place] [address] Dr. Paula Hernandez Glucose Ql (U) Negative Normal NEGATIVE [facility] Comment on above: Performed By: #### U RCX #### [facility] [address] [place] [address] Dr. Paula Hernandez Hemoglobin Ql (U) Negative Normal NEGATIVE [facility] Comment on above: Performed By: #### U RCX #### [facility] [address] [place] [address] Dr. Paula Hernandez Ketones Ql (U) Negative Normal NEGATIVE [facility] Comment on above: Performed By: #### U RCX #### [facility] [address] [place] [address] Dr. Paula Hernandez LEUKOCYTES LARGE Abnormal NEGATIVE [facility] Comment on above: Performed By: #### U RCX #### [facility] [address] [place] [address] Dr. Paula Hernandez Nitrite Ql (U) Positive Abnormal NEGATIVE [facility] Comment on above: Performed By: #### U RCX #### [facility] [address] [place] [address] Dr. Paula Hernandez pH (U) 7.0 [pH] Normal 5-9 [facility] Comment on above: Performed By: #### U RCX #### [facility] [address] [place] [address] Dr. Paula Hernandez SPEC GRAVITY 1.010 Normal 1.005-<=1.025 [facility] Comment on above: Performed By: #### U RCX #### [facility] [address] [place] [address] Dr. Paula Hernandez UA PROTEIN Negative Normal NEGATIVE/ TRACE [facility] Comment on above: Performed By: #### U RCX #### [facility] [address] [place] [address] Dr. Paula Hernandez UR MICRO IND INDICATED Normal [facility] Comment on above: Performed By: #### U RCX #### [facility] [address] [place] [address] Dr. Paula Hernandez Urobilinogen Qn (U) 0.2 {Alisia'U}/dL Normal 0.2 - 1. 0 [facility] Comment on above: Performed By: #### U RCX #### [facility] [address] [place] [address] Dr. Paula Hernandez URINE MICROSCOPIC ONLYon BACTERIA MODERATE Abnormal NONE SEEN [facility] Comment on above: Performed By: #### U RCX #### [facility] [address] [place] [address] Dr. Puala Hernandez Bacteria identified Cx Nom (U) INDICATED Normal [facility] Comment on above: Performed By: #### U RCX #### [facility] [address] [place] [address] Dr. Paula Hernandez CAST NONE SEEN Normal NONE SEEN [facility] Comment on above: Performed By: #### U RCX #### [facility] [address] [place] [address] Dr. Paula Hernandez Crystals LM Nom (Urine sed) NONE SEEN Normal NONE SEEN [facility] Comment on above: Performed By: #### U RCX #### [facility] [address] [place] [address] Dr. Paula Hernandez Epithelial cells LM Ql (Urine sed) FEW Abnormal NONE SEEN /RARE [facility] Comment on above: Performed By: #### U RCX #### [facility] [address] [place] [address] Dr. Paula Hernandez MUCOUS NONE SEEN Normal NONE SEEN [facility] Comment on above: Performed By: #### U RCX #### [facility] [address] [place] [address] Dr. Paula Hernandez RBC 0-2 Normal 0-2 [facility] Comment on above: Performed By: #### U RCX #### [facility] [address] [place] [address] Dr. Paula Hernandez WBC 50-75 Abnormal NONE SEEN [facility] Comment on above: Performed By: #### U RCX #### [facility] [address] [place] [address] Dr. Paula Hernandez GROUP B STREP CULTUREon 01-24 S. agalactiae Ag Ql (Unsp spec) Culture Observations: NEGATIVE FOR GROUP B STREPTOCOCCUS. Normal [facility] Comment on above: Performed By: #### U RCX #### [facility] [address] [place] [address] Dr. Paula Hernandez GLUCOSE - 1HRon 12-17-2022 Glucose [Mass/Vol] 132 mg/dL Critically high 74-106 [facility] Comment on above: Performed By: #### U RCX #### [facility] [address] [place], [place] [address] Dr. Paula Hernandez US PREG GROWTHon 12-17-2022 US PREG GROWTH EXAMINATION: US PREG GROWTH HISTORY: Uterine size for dates discrepancy COMPARISON: Ultrasound anatomy 11/10/2022 FINDINGS: Heart Rate: 156.0 bpm Number: 1.0 Position: Cephalic Amniotic Fluid Volume: 11.7 cm Maximum Vertical Pocket: 4.7 cm BIOMETRY: BPD: 6.5 cm cm; 26 weeks 2 days HC: 24.2 cmcm; 26 weeks 2 days AC: 21.7 cm cm; 26 weeks 1 days FL: 5.0 cm cm; 27 weeks 0 days EFW: 940.5 grams; 8% FL/AC: 23.1 FL/BPD: 77.0 HC/AC: 1.1 GESTATIONAL AGE: Age by EDC: 27 weeks 4 days GEORGE by EDC: 03/14/2023 Age by US: 26 weeks 3 days GEORGE by US: 03/22/2023 IMPRESSION: 1. Single live intrauterine with growth detailed above. Electronically authenticated by: AP CASTILLO Date: 2022-12-17 15:11 Normal [facility] CULTURE URINEon 12-11-2022 CULTURE URINE Isolate 1 Escherichia coli >100,000 cfu/mL of ORGANISM 1 Escherichia coli ANTIBIOTIC M.I.C RX STATUS Ampicillin >=32 R F Ampicillin/Sulbactam >=32 R F Piperacillin/Tazobact am <=4 S F Cefazolin <=4 S F Ceftazidime <=1 S F Ceftriaxone <=1 S F Ertapenem <=0.5 S F Imipenem <=0.25 S F Amikacin <=2 S F Gentamicin <=1 S F Tobramycin <=1 S F Ciprofloxacin 1 S F Levofloxacin 1 S F Nitrofurantoin <=16 S F Trimethoprim/Sulfamet hoxazole <=20 S F Normal [facility] Comment on above: Performed By: #### U RCX ####[facility] [address] [place], [place] [address]QpDr. Paula Hernnadez CBC AUTO DIFFon 12-09-2022 BASO # 0.0 103/ul Normal 0.0-0.1 [facility] Comment on above: Performed By: #### U RCX #### [facility] [address] [place] [address] Dr. Paula Hernandez Basophils/100 WBC (Bld) 0.2 % Normal 0.2-2.0 [facility] Comment on above: Performed By: #### U RCX #### [facility] [address] [place] [address] Dr. Paula Hernandez EO # 0.2 103/ul Normal 0.0-0.7 [facility] Comment on above: Performed By: #### U RCX #### [facility] [address] [place] [address] Dr. Paula Hernandez Eosinophils/100 WBC (Bld) 1.7 % Normal 0.9-7.0 [facility] Comment on above: Performed By: #### U RCX #### [facility] [address] [place] [address] Dr. Paula Hernandez Erythrocyte distribution width (RBC) [Ratio] 12.9 % Normal 11.0-15.0 [facility] Comment on above: Performed By: #### U RCX #### [facility] [address] [place] [address] Dr. Paula Hernandez Hematocrit (Bld) [Volume fraction] 26.4 % Critically low 36.0-48.0 [facility] Comment on above: Performed By: #### U RCX #### [facility] [address] [place] [address] Dr. Paula Hernandez Hemoglobin (Bld) [Mass/Vol] 8.9 g/dL Critically low 12.0-16.0 [facility] Comment on above: Performed By: #### U RCX #### [facility] [address] [place] [address] Dr. Paula Hernandez IG # 0.11 10e3/ul Critically high 0.00-0.03 [facility] Comment on above: Performed By: #### U RCX #### [facility] [address] [place] [address] Dr. Paula Hernandez IG % 0.9 % Critically high 0.0-0.5 [facility] Comment on above: Performed By: #### U RCX #### [facility] [address] [place] [address] Dr. Paula Hernandez LYMPH # 1.6 103/ul Normal 1.2-3.8 [facility] Comment on above: Performed By: #### U RCX #### [facility] [address] [place] [address] Dr. Paula Hernandez Lymphocytes/100 WBC (Bld) 13.0 % Critically low 20.5-60.0 [facility] Comment on above: Performed By: #### U RCX #### [facility] [address] [place] [address] Dr. Paula Hernandez MANUAL DIFF REQ NO Normal [facility] Comment on above: Performed By: #### U RCX #### [facility] [address] [place] [address] Dr. Paula Hernandez MCH (RBC) [Entitic mass] 30.6 pg Normal 26.7-34.0 [facility] Comment on above: Performed By: #### U RCX #### [facility] [address] [place] [address] Dr. Paula Hernandez MCHC (RBC) [Mass/Vol] 33.7 g/dL Normal 29.9-35.2 [facility] Comment on above: Performed By: #### U RCX #### [facility] [address] [place] [address] Dr. Paula Hernandez MCV (RBC) [Entitic vol] 90.7 fL Normal 81.0-99.0 [facility] Comment on above: Performed By: #### U RCX #### [facility] [address] [place] [address] Dr. Paula Hernandez MONO # 0.7 103/ul Normal 0.3-0.8 [facility] Comment on above: Performed By: #### U RCX #### [facility] [address] [place] [address] Dr. Paula Hernandez Monocytes/100 WBC (Bld) 5.5 % Normal 1.7-12.0 [facility] Comment on above: Performed By: #### U RCX #### [facility] [address] [place] [address] [address] Paula Hernandez NEUT # 9.5 103/ul Critically high 1.4-6.5 [facility] Comment on above: Performed By: #### U RCX #### [facility] [address] [place] [address] [address] Paula Hernandez Neutrophils/100 WBC (Bld) 78.7 % Critically high 43.0-75.0 [facility] Comment on above: Performed By: #### U RCX #### [facility] [address] [place] [address] [address] Paula Hernandez Platelet mean volume (Bld) [Entitic vol] 9.4 fL Critically low 9.5-13.5 [facility] Comment on above: Performed By: #### U RCX #### [facility] [address] [place] [address] [address] Paula Hernandez PLT 332 103/ul Normal 150-450 [facility] Comment on above: Performed By: #### U RCX #### [facility] [address] [place] [address] [address] Paula Hernandez RBC 2.91 106/ul Critically low 4.20-5.40 [facility] Comment on above: Performed By: #### U RCX #### [facility] [address] [place] [address] [address] Paula Hernandez WBC 12.1 103/ul Critically high 4.0-11.0 [facility] Comment on above: Performed By: #### U RCX #### [facility] [address] [place] [address] [address] Paula Hernandez ER URINE PROFILEon 3 Bilirubin Ql (U) Negative Normal NEGATIVE [facility] Comment on above: Performed By: #### U MICRO, ERUR ####[facility] [address] [place] [address]Dr. Paula Hernandez Clarity (U) CLEAR Normal CLEAR [facility] Comment on above: Performed By: #### U MICRO, ERUR ####[facility] [address] [place] [address]Dr. Paula Hernandez Color (U) LT. YELLOW Normal YELLOW [facility] Comment on above: Performed By: #### U MICRO, ERUR ####[facility] [address] [place] [address]Dr. Paula Hernandez ERUAHD A micrscopic examination will be performed if indicated. Normal [facility] Comment on above: Performed By: #### U MICRO, ERUR ####[facility] [address] [place] [address]Dr. Paula Hernandez Glucose Ql (U) Negative Normal NEGATIVE [facility] Comment on above: Performed By: #### U MICRO, ERUR ####[facility] [address] [place] [address]Dr. Paula Hernandez Hemoglobin Ql (U) Negative Normal NEGATIVE [facility] Comment on above: Performed By: #### U MICRO, ERUR ####[facility] [address] [place], [place] [address]Dr. Paula Hernandez Ketones Ql (U) Negative Normal NEGATIVE [facility] Comment on above: Performed By: #### U MICRO, ERUR ####[facility] [address] [place] [address]Dr. Paula Hernandez LEUKOCYTES LARGE Abnormal NEGATIVE [facility] Comment on above: Performed By: #### U MICRO, ERUR ####[facility] [address] [place] [address]Dr. Paula Hernandez Nitrite Ql (U) Positive Abnormal NEGATIVE [facility] Comment on above: Performed By: #### U MICRO, ERUR ####[facility] [address] [place], [place] [address]Dr. Paula Hernandez pH (U) 6.0 [pH] Normal 5-9 [facility] Comment on above: Performed By: #### U MICRO, ERUR ####[facility] [address] [place], [place] [address]Dr. Paula Hernandez SPEC GRAVITY 1.010 Normal 1.005-<=1.025 [facility] Comment on above: Performed By: #### U MICRO, ERUR ####[facility] [address] [place] [address]Dr. Paula Hernandez UA PROTEIN Negative Normal NEGATIVE/ TRACE [facility] Comment on above: Performed By: #### U MICRO, ERUR ####[facility] [address] [place] [address]Dr. Paula Hernandez UR MICRO IND INDICATED Normal [facility] Comment on above: Performed By: #### U MICRO, ERUR ####[facility] [address] [place] [address]Dr. Paula Hernandez Urobilinogen Qn (U) 0.2 {Alisia'U}/dL Normal 0.2 - 1. 0 [facility] Comment on above: Performed By: #### U MICRO, ERUR ####[facility] [address] [place], [place] [address]Dr. Paula Hernandez PROF CHEM 8 (BAS METB)on Anion gap [Moles/Vol] 12.5 mmol/L Normal [facility] Comment on above: Performed By: #### B MP ####[facility] [address] [place], [place] [address]Dr. Paula Hernandez Calcium [Mass/Vol] 8.4 mg/dL Critically low 8.5-10.1 [facility] Comment on above: Performed By: #### B MP ####[facility] [address] [place], [place] [address]Dr. Paula Hernandez Chloride [Moles/Vol] 100 mmol/L Normal 98-107 [facility] Comment on above: Performed By: #### B MP ####[facility] [address] [place], [place] [address]Dr. Paula Hernandez CO2 [Moles/Vol] 24.8 mmol/L Normal 21.0-32.0 [facility] Comment on above: Performed By: #### B MP ####[facility] [address] [place], [place] [address]Dr. Paula Hernandez Creatinine [Mass/Vol] 0.58 mg/dL Normal 0.55-1.02 [facility] Comment on above: Performed By: #### B MP ####[facility] [address] [place] [address]Dr. Yolandafrance David EGFR-AF CHILEAN >60 Normal >=60 [facility] Comment on above: Performed By: #### B MP ####[facility] [address] [place] [address]Dr. Paula Hernandez EGFR-NON AF CHILEAN >60 Normal >=60 [facility] Comment on above: Performed By: #### B MP ####[facility] [address] [place], [place] [address]Dr. Paula Hernandez Glucose [Mass/Vol] 106 mg/dL Normal 74-106 [facility] Comment on above: Performed By: #### B MP ####[facility] [address] [place], [place] [address]Dr. Paula Hernandez Potassium [Moles/Vol] 3.3 mmol/L Critically low 3.5-5.1 [facility] Comment on above: Performed By: #### B MP ####[facility] [address] [place], [place] [address]Dr. Paula Hernandez Sodium [Moles/Vol] 134 mmol/L Critically low 136-145 Th [facility] Comment on above: Performed By: #### B MP ####[facility] [address] [place], [place] [address]Dr. Paula Hernandez Urea nitrogen [Mass/Vol] 7.0 mg/dL Normal 7.0-18.0 [facility] Comment on above: Performed By: #### B MP ####[facility] [address] [place], [place] [address]Dr. Paula Hernandez Urea nitrogen/Creatinine [Mass ratio] 12.1 mg/mg Normal [facility] Comment on above: Performed By: #### B MP ####[facility] [address] [place], [place] [address]Dr. Paula Henrandez URINE MICROSCOPIC ONLYon BACTERIA LARGE Abnormal NONE SEEN [facility] Comment on above: Performed By: #### U RCX #### [facility] [address] [place] [address] Dr. Paula Hernandez Bacteria identified Cx Nom (U) INDICATED Normal [facility] Comment on above: Performed By: #### U RCX #### [facility] [address] [place] [address] [address] Paula Hernandez CAST NONE SEEN Normal NONE SEEN [facility] Comment on above: Performed By: #### U RCX #### [facility] [address] [place] [address] [address] Paula Hernandez Crystals LM Nom (Urine sed) NONE SEEN Normal NONE SEEN [facility] Comment on above: Performed By: #### U RCX #### [facility] [address] [place] [address] Dr. Paula Hernandez Epithelial cells LM Ql (Urine sed) FEW Abnormal NONE SEEN /RARE [facility] Comment on above: Performed By: #### U RCX #### [facility] [address] [place] [address] Dr. Paula Hernandez MUCOUS NONE SEEN Normal NONE SEEN [facility] Comment on above: Performed By: #### U RCX #### [facility] [address] [place] [address] Dr. Paula Hernandez RBC NONE SEEN Abnormal 0-2 [facility] Comment on above: Performed By: #### U RCX #### [facility] [address] [place] [address] Dr. Paula Hernandez WBC 10-20 Abnormal NONE SEEN [facility] Comment on above: Performed By: #### U RCX #### [facility] [address] [place] [address] Dr. Paula Hernandez PAP ACOG PANEL 2: 30 to 65on 12-02-2022 . . Normal [facility] Comment on above: Result Comment: Perf ormed at: WB Performed By: #### [id number] ####[facility] [address] [place] [address]Dr. Paula Hernandez Age Gdln ACOG Testing 30-65 Normal [facility] Comment on above: Performed By: #### [id number] ####[facility] [address] [place] [address]DrKiara Hernandez DIAGNOSIS: Comment Normal [facility] Comment on above: Result Comment: NEGA TIVE FOR INTRAEPITHELIAL LESION OR MALIGNANCY. Performed at: WB Performed By: #### [id number] ####[facility] [address] [place] [address]DrKiara Hernandez HPV Aptima Negative Normal Negative [facility] Comment on above: Result Comment: This nucleic acid amplification test detects fourteen high-risk HPV types (16,18,31,33,35,39,45,51,52,56,58,59,66,68) without differentiation. Performed at: =G Performed By: #### [id number] ####[facility] [address] [place], [place] [address]DrKiara Hernandez HPV Genotype Reflex Comment Normal [facility] Comment on above: Result Comment: Crit eremilio not met, HPV Genotype not performed. Performed at: WB Performed By: #### [id number] ####[facility] [address] [place], [place] [address]DrKiara Hernandez Methodology: Comment Normal [facility] Comment on above: Result Comment: This liquid based ThinPrep(R) pap test was screened with the use of an image guided system. Performed at: WB Performed By: #### [id number] ####[facility] [address] [place], [place] [address]DrKiara Hernandez Note: Comment Normal [facility] Comment on above: Result Comment: The Pap smear is a screening test designed to aid in the detection of premalignant and malignant conditions of the uterine cervix. It is not a diagnostic procedure and should not be used as the sole means of detecting cervical cancer. Both false-positive and false-negative reports do occur. . Performed at: WB Performed By: #### [id number] ####[facility] [address] [place] [id number] Hernandez Performed by: Comment Normal [facility] Comment on above: Result Comment: Uma Tom, Commercial Door Installer (ASCP) Performed at: WB Performed By: #### [id number] ####[facility] [address] [place] [address]Dr. Paula Hernandez Specimen adequacy: Comment Normal [facility] Comment on above: Result Comment: Sati sfactory for evaluation. No endocervical component is identified. Performed at: WB Performed By: #### [id number] ####[facility] [address] [place] [address]Dr. Paula Hernandez CHLAMYDIA/GONOCOCCUS YAS ( AB/URINE/PAPon 11-29-2022 Chlamydia trachomatis, YAS Negative Normal Negative [facility] Comment on above: Performed By: #### C T/NGNA ####[facility] [address] [place], [place] [address]Dr. france [facility] Neisseria gonorrhoeae, YAS Negative Normal Negative [facility] Comment on above: Performed By: #### C T/NGNA ####[facility] [address] [place], [place] [address]Dr. Paula Hernandez VAGINITIS/VAGINOSIS DNA PROB Ketan 11-28-2022 Nirmala species Negative Normal Negative [facility] Comment on above: Performed By: #### V AGINT ####[facility] [address] [place], [place] [address]Dr. [facility] Gardnerella vaginalis Positive Abnormal Negative [facility] Comment on above: Performed By: #### V AGINT ####[facility] [address] [place], [place] [address]Dr. [facility]andaThe [facility] Trichomonas vaginalis Negative Normal Negative [facility] Comment on above: Performed By: #### V AGINT ####[facility] [address] [place], [place] [address]Dr. Paula Hernandez US PREG ANATOMY SINGLEon US PREG ANATOMY SINGLE EXAMINATION: US PREG ANATOMY SINGLE HISTORY: Routine care COMPARISON: No relevant comparison available. TECHNIQUE: Transabdominal sonographic examination was performed for obstetrical and evaluation. FINDINGS: Number: 1 Heart Rate: 148.4 bpm H.B. /min Amniotic Fluid Volume: Subjectively normal position: Cephalic presentation, longitudinal lie Placental Location: Posterior. Grade 0. Placental edge 3.0 cm from the internal os Cervix Length: 5.6 cm, closed Normal structures: Cerebellum. Choroid plexus. Cisterna magna. Lateral cerebral ventricles. Orbits. Midline falx. Hard palate. 4-chamber heart. RVOT. LVOT. Stomach. Kidneys. Bladder. Umbilical cord insertion into abdomen. 3 vessel cord. Right upper extremity. Left upper extremity. Right lower extremity. Left lower extremity. Suboptimally seen: Cervical spine. Thoracic spine. Lumbar spine. Sacral spine. Abnormalities/Other: None BIOMETRY: BPD: 5.0 cm 21 weeks 1 days , 10% HC: 19.3 cm 21 weeks 4 days, 12% AC: 16.8 cm 21 weeks 5 days, 26% FL: 3.7 cm 21 weeks 5 days, 21% EFW:442.8 grams; 1 lb. 0 oz., 18% FL/AC: 21.9 FL/BPD: 73.6 HC/AC: 1.2 GESTATIONAL AGE: Age by EDC: 22 weeks 2 days GEORGE by EDC: 03/14/2023 Age by current US: 21 weeks 4 days GEORGE by current US: 03/19/2023 IMPRESSION: Suboptimal visualization of the spine, otherwise normal anatomy scan *Reference: [employer] Practice Guideline for the performance of Obstetric Ultrasound Examinations, July 26, 2007. Electronically authenticated by: REINA OLGUIN Date: 2022-11-11 16:09 Normal [facility] AFP MATERNAL FOR SPINA BIFID Aon 10-22-2022 AFP MoM Normal [facility] Comment on above: Performed By: #### U RCX #### [facility] [address] [place] [address] [address] Paula Hernandez AFP Value TNP Normal [facility] Comment on above: Result Comment: Test not performed Performed By: #### U RCX #### [facility] [address] [place] [address] [address] Paula Hernandez AFP, Serum for Spina Bifida Normal [facility] Comment on above: Performed By: #### U RCX #### [facility] [address] [place] [address] [address] Paula Hernandez Comment [facility] Comment on above: Performed By: #### U RCX #### [facility] [address] [place] [address] [address] Paula Clay Age Collection Date [facility] Comment on above: Performed By: #### U RCX #### [facility] [address] [place] [address] [address] Paula Hernandez Gestat, Age Based on [facility] Comment on above: Performed By: #### U RCX #### [facility] [address] [place] [address] [address] Paula Hernandez Insulin Dep Diabetes [facility] Comment on above: Performed By: #### U RCX #### [facility] [address] [address] [address] Paula Hernandez Interpretation [facility] Comment on above: Performed By: #### U RCX #### [facility] [address] [address] [address] Paula Hernandez Maternal [facility] at [age] [facility] Comment on above: Performed By: #### U RCX #### [facility] [address] [address] [address] Paula Hernandez Multiple Gestation [facility] Comment on above: Performed By: #### U RCX #### [facility] [address] [address] [address] Paula Hernandez OSBR Risk 1 [place] [facility] Comment on above: Performed By: #### U RCX #### [facility] [address] [address] [address] Paula Hernandez PDF [facility] Comment on above: Performed By: #### U RCX #### [facility] [address] [address] [address] Paula Hernandez Race [facility] Comment on above: Performed By: #### U RCX #### [facility] [address] [address] [address] Paula Hernandez Test Results: REFERT [facility] Comment on above: Result Comment: Plea se refer to the following specimen for additional lab results. See:[phone] Performed By: #### U RCX #### [facility] [address] [address] [address] Paula Hernandez Tracking [facility] Comment on above: Performed By: #### U RCX #### [facility] [address] [address] [address] Paula Hernandez Weight Normal [facility] Comment on above: Performed By: #### U RCX #### [facility] [address] [address] [address] Paula Hernandez CULTURE URINEon 10-13-2022 CULTURE URINE Isolate 1 Escherichia coli >100,000 cfu/mL of ORGANISM 1 Escherichia coli ANTIBIOTIC M.I.C RX STATUS Ampicillin >=32 R F Ampicillin/Sulbactam >=32 R F Piperacillin/Tazobact am <=4 S F Cefazolin <=4 S F Ceftazidime <=1 S F Ceftriaxone <=1 S F Ertapenem <=0.5 S F Imipenem <=0.25 S F Amikacin <=2 S F Gentamicin <=1 S F Tobramycin <=1 S F Ciprofloxacin 1 S F Levofloxacin 1 S F Nitrofurantoin <=16 S F Trimethoprim/Sulfamet hoxazole <=20 S F Normal [facility] Comment on above: Performed By: #### U RCX #### [facility] [address] [address] [address] Paula Hernandez CBC W MANUAL DIFFon 10-11-20 22 ATYPICAL LYMPH # Normal [facility] Comment on above: Performed By: #### C BCMAN ####[facility] [address] [id number]. Paula Hernandez ATYPICAL LYMPH % Normal [facility] Comment on above: Performed By: #### C BCMAN ####[facility] [address] [id number]. Paula Hernandez BAND # 0.7 103/ul Critically high 0.0-0.3 [facility] Comment on above: Performed By: #### C BCMAN ####[facility] [address] [address]Dr. Paula Hernandez BAND % 4 % Normal 0-5 [facility] Comment on above: Performed By: #### C BCMAN ####[facility] [address] [address]Dr. Yifrance Hernandez BASOM # 0.00 103/ul Normal 0.00-0.10 [facility] Comment on above: Performed By: #### C BCMAN ####[facility] [address] [address]Dr. Paula Hernandez BASOM % 0.0 % Critically low 0.2-2.0 [facility] Comment on above: Performed By: #### C BCMAN ####[facility] [address] [address]Dr. Yifrance Hernandez BLAST # Normal [facility] Comment on above: Performed By: #### C BCOBI ####[facility] [address] [address]Dr. Yifrance Hernandez BLAST % Normal [facility] Comment on above: Performed By: #### C BCOBI ####[facility] [address] [place], [place] [address]Dr. Paula Hernandez CORRECTED WBC Normal 4.0-11.0 The [facility] Comment on above: Performed By: #### C BCOBI ####[facility] [address] [address]Dr. Paula Hernandez EOS # 0.37 103/ul Normal 0.00-0.70 [facility] Comment on above: Performed By: #### C BCMAN ####[facility] [address] [place], [place] [address]Dr. Paula Hernandez EOS% 2.0 % Normal 0.9-7.0 [facility] Comment on above: Performed By: #### C BCMAN ####[facility] [address] [place], [place] [address]Dr. Paula Hernandez HCT 29.8 % Critically low 36.0-48.0 [facility] Comment on above: Performed By: #### C TARAH ####[facility] [address]so[address] [place], [place] [address]Tg. Paula Hernandez HGB 10.1 g/dl Critically low 12.0-16.0 [facility] Comment on above: Performed By: #### C TARAH ####[facility] S[address]ks[address]26[address] [place], [place] [address]Kh. Paula Hernandez LYMPHM # 1.85 103/ul Normal 1.20-3.80 [facility] Comment on above: Performed By: #### C TARAH ####[facility] Dmnzeontin1867 [place], [place] [address]Bh. Paula Hernandez LYMPHM% 10.0 % Critically low 20.5-60.0 [facility] Comment on above: Performed By: #### C TARAH ####[facility] Geapmgcizz[address] [place], [place] [address]Je. Paula Hernandez MCH 29.7 pg Normal 26.7-34.0 [facility] Comment on above: Performed By: #### Nelly RASCON ####[facility] Adbcgtkqzn9797 [place], [place] [address]Hd. Paula Hernandez MCHC 33.9 g/dl Normal 29.9-35.2 [facility] Comment on above: Performed By: #### Nelly RASCON ####[facility] Akbpfuqozz7252 [place], [place] [address]Fj. Paula Hernandez MCV 87.6 fL Normal 81.0-99.0 [facility] Comment on above: Performed By: #### Nelly RASCON ####[facility] Xyqrmypjcx4289 [place], [place] [address]Jv. Paula Hernandez METAMYELOCYTE # Normal The [facility] Comment on above: Performed By: #### C TARAH ####[facility] Jcipxchlut0272 [place], [place] [address]Ru. Paula Hernandez METAMYELOCYTE % Normal [facility] Comment on above: Performed By: #### Nelly RASCON ####[facility] Tjnhekstrb0595 [place], [place] [address]Np. Paula Hernandez MONOM# 3.52 103/ul Critically high 0.30-0.80 [facility] Comment on above: Performed By: #### C TARAH ####[facility] [address] [address]Dr. Paula Hernandez MONOM% 19.0 % Critically high 1.7-12.0 The [facility] Comment on above: Performed By: #### C TARAH ####[facility] [address] [id number]. Paula Hernandez MPV 9.3 fL Critically low 9.5-13.5 [facility] Comment on above: Performed By: #### C TARAH ####[facility] [address] [address]Dr. Paula Hernandez MYELOCYTE # Normal [facility] Comment on above: Performed By: #### C TARAH ####[facility] [address] [address]Dr. Paula Hernandez MYELOCYTE % Normal [facility] Comment on above: Performed By: #### C TARAH ####[facility] [address] [address]Dr. Paula Hernandez NRBC Normal [facility] Comment on above: Performed By: #### C TARAH ####[facility] T[address] [address]Dr. Paula Hernandez PLT 330 103/ul Normal 150-450 [facility] Comment on above: Performed By: #### C TARAH ####[facility] M[address] [address]Dr. Paula Hernandez RBC 3.40 106/ul Critically low 4.20-5.40 The [facility] Comment on above: Performed By: #### C TRAAH ####[facility] [address] [address]Dr. Paula Hernandez RDW 12.8 % Normal 11.0-15.0 [facility] Comment on above: Performed By: #### C TARAH ####[facility] Tbvhyxzcji9622 [place], [place] [address]Dh. Paula Hernandez SEG # 12.03 103/ul Critically high 1.40-6.50 The [facility] Comment on above: Performed By: #### Nelly RASCON ####[facility] Nkfwerzvyx7981 [place], [place] [address]Jg. Paula Hernandez SEG % 65.0 % Normal 43.0-75.0 [facility] Comment on above: Performed By: #### Nelly RASCON ####[facility] Riwzbphphn0109 [place], [place] [address]Ti. Paula Hernandez WBC 18.5 103/ul Critically high 4.0-11.0 [facility] Comment on above: Performed By: #### Nelly RASCON ####[facility] Xeirygeijx4728 [place], [place] [address]Xf. Paula Hernandez Covid-19 PCR (CVDTB)on 09-25 SARS-CoV-2 (COVID-19) RNA YAS+probe Ql (Unsp spec) Not detected Normal NOT DETECTED [facility] Comment on above: Result Comment: This test is not yet approved or cleared by the [place] FDA. When there are no FDA-approved or cleared tests available, and other criteria are met, FDA can make tests available under an emergency access mechanism called an Emergency Use Authorization (EUA). The EUA for this test is supported by the [place] of Health and Human Service's (HHS's) declaration that circumstances exist to justify the emergency use of in vitro diagnostics for the detection and/or diagnosis of the virus that causes COVID-19. This EUA will remain in effect (meaning this test can be used) for the duration of the COVID-19 declaration justifying emergency of IVDs, unless it is terminated or revoked by FDA (after which the test may no longer be used). When diagnostic testing is negative, the possibility of a false negative should be considered in the context of a patient's recent exposures and the presence of clinical signs and symptoms consistent with SARS-CoV-2. Performed By: #### C VDTB ####[facility] Zmnrkgsugq5059 [place], [place] [address]Cm. Paula Hernandez ER URINE PROFILEon 2 Bilirubin Ql (U) Negative Normal NEGATIVE [facility] Comment on above: Performed By: #### Alma Rosa IRAHETA UMICRO ####[facility] Kv[address] [place], [place] [address]Dr. Paula Hernandez Clarity (U) SL CLOUDY Abnormal CLEAR [facility] Comment on above: Performed By: #### Alma Rosa IRAHETA UMICRO ####[facility] [address] [address]Dr. Paula Hernandez Color (U) LT. YELLOW Normal YELLOW [facility] Comment on above: Performed By: #### Alma Rosa IRAHETA UMICRO ####[facility] Ccjtcxvfxu[address] [place], [place] [address]Dr. Paula Hernandez ERUAHD A micrscopic examination will be performed if indicated. Normal [facility] Comment on above: Performed By: #### Alma Rosa IRAHETA UMICRO ####[facility] Ztybgcvmoo[address] [place], [place] [address]Dr. Paula Hernandez Glucose Ql (U) Negative Normal NEGATIVE [facility] Comment on above: Performed By: #### Alma Rosa IRAHETA UMICRO ####[facility] Mxuedqhnab[address] [place], [place] [address]Dr. Paula Hernandez Hemoglobin Ql (U) TRACE-INTACT Abnormal NEGATIVE [facility] Comment on above: Performed By: #### Alma Rosa IRAHETA UMICRO ####[facility] Jbutugsgtc[address] [place], [place] [address]Dr. Paula Hernandez Ketones Ql (U) 80 mg/dl Abnormal NEGATIVE [facility] Comment on above: Performed By: #### Alma Rosa IRAHETA UMICRO ####[facility] Vvqncrrzno[address] [place], [place] [address]Dr. Paula Hernandez LEUKOCYTES SMALL Abnormal NEGATIVE [facility] Comment on above: Performed By: #### Alma Rosa IRAHETA UMICRO ####[facility] Hptuklzrtu[address] [place], [place] [address]Dr. Paula Hernandez Nitrite Ql (U) Positive Abnormal NEGATIVE [facility] Comment on above: Performed By: #### MAMADOU MADRIGALRO ####[facility] [address] [address]Dr. Paula Hernandez pH (U) 6.0 [pH] Normal 5-9 [facility] Comment on above: Performed By: #### Alma Rosa IRAHETA ICRO ####[facility] Oikdinktek[address] [place], [place] [address]Dr. Paula Hernandez Protein (U) [Mass/Vol] 100 mg/dL Abnormal NEGATIVE/ TRACE [facility] Comment on above: Performed By: #### Alma Rosa IRAHETA ICRO ####[facility] Bomvkczezm[address] [place], [place] [address]Dr. Paula Hernandez SPEC GRAVITY 1.020 Normal 1.005-<=1.025 [facility] Comment on above: Performed By: #### Alma Rosa IRAHETA MAYELARO ####[facility] J[address]qqqlpquq[address] [place], [place] [address]Dr. Paula Hernandez UR MICRO IND INDICATED Normal [facility] Comment on above: Performed By: #### Alma Rosa IRAHETA MAYELARO ####[facility] Glnaoyqrwz[address] [place], [place] [address]Dr. Paula Hernandez Urobilinogen Qn (U) 0.2 {Alisia'U}/dL Normal 0.2 - 1. 0 [facility] Comment on above: Performed By: #### Alma Rosa IRAHETA ICRO ####[facility] Grrmdidkyx[address] [place], [place] [address]Dr. Paula Hernandez INFLUENZA A AND B AGon 10-11 INFLUANEGH SEE BELOW Normal [facility] Comment on above: Result Comment: Nega tive for Flu A protein angiten. Infection due to Flu A cannot be ruled out. Flu A angiten in the sample may be below the detection limit of the test. Performed By: #### I NFLUAB ####[facility] [address]wtzbe[address]so[address] [place], [place] [address]Dr. Paula Hernandez INFLUBNEGH SEE BELOW Normal [facility] Comment on above: Result Comment: Nega tive for Flu B protein antigen. Infection due to Flu B cannot be ruled out. Flu B antigen in the sample may be below the detection limit of the test. Performed By: #### I NFLUAB ####[facility] [address] [address]Dr. Paula Hernandez INFLUENZA A AG Negative Normal NEGATIVE SEE COMMENT [facility] Comment on above: Performed By: #### I NFLUAB ####[facility] [address] [address]Dr. Paula Hernandez INFLUENZA B AG Negative Normal NEGATIVE SEE COMMENT [facility] Comment on above: Performed By: #### I NFLUAB ####[facility] [address] [address]Dr. Paula Hernandez INTERNAL CONTROLS Within Normal Limits Normal Wi thin Normal Limits [facility] Comment on above: Performed By: #### I NFLUAB ####[facility] [address] [address]DrKiara Hernandez PROF 14(COMP METB)on 022 Albumin [Mass/Vol] 2.6 g/dL Critically low 3.4-5.0 Th [facility] Comment on above: Performed By: #### U RCX #### [facility] [address] [address] [address] Paula Hernandez Albumin/Globulin [Mass ratio] 0.6 {ratio} [facility] Comment on above: Performed By: #### U RCX #### [facility] [address] [address] [address] Paula Hernandez ALP [Catalytic activity/Vol] 92 U/L Normal 46-116 [facility] Comment on above: Performed By: #### U RCX #### [facility] [address] [address] [address] Paula Hernandez ALT [Catalytic activity/Vol] 7 U/L Critically low 14-59 [facility] Comment on above: Performed By: #### U RCX #### [facility] [address] [address] [address] Paula Hernandez Anion gap [Moles/Vol] 13.7 mmol/L Normal [facility] Comment on above: Performed By: #### U RCX #### [facility] [address] [address] [address] Paula Hernandez AST [Catalytic activity/Vol] 10 U/L Critically low 15-37 [facility] Comment on above: Performed By: #### U RCX #### [facility] [address] [address] [address] Paula Hernandez Bilirubin [Mass/Vol] 0.3 mg/dL Normal 0.2-1.0 [facility] Comment on above: Performed By: #### U RCX #### [facility] [address] [address] [address] Paula Hernandez Calcium [Mass/Vol] 8.8 mg/dL Normal 8.5-10.1 [facility] Comment on above: Performed By: #### U RCX #### [facility] [address] [place] [address] Dr. Paula Hernandez Chloride [Moles/Vol] 98 mmol/L Normal 98-107 [facility] Comment on above: Performed By: #### U RCX #### [facility] [address] [address] [address] Paula Hernandez CO2 [Moles/Vol] 21.2 mmol/L Normal 21.0-32.0 [facility] Comment on above: Performed By: #### U RCX #### [facility] [address] [address] [address] Paula Hernandez Creatinine [Mass/Vol] 0.80 mg/dL Normal 0.55-1.02 [facility] Comment on above: Performed By: #### U RCX #### [facility] [address] [address] [address] Paula Hernandez EGFR-AF CHILEAN >60 Normal >=60 [facility] Comment on above: Performed By: #### U RCX #### [facility] [address] [address] [address] Paula Hernandez EGFR-NON AF CHILEAN >60 Normal >=60 [facility] Comment on above: Performed By: #### U RCX #### [facility] [address] [address] [address] Paula Hernandez Globulin (S) [Mass/Vol] 4.5 g/dL Normal [facility] Comment on above: Performed By: #### U RCX #### [facility] [address] [address] [address] Paula Hernandez Glucose [Mass/Vol] 100 mg/dL Normal 74-106 [facility] Comment on above: Performed By: #### U RCX #### [facility] [address] [address] [address] Paula Hernandez Potassium [Moles/Vol] 2.9 mmol/L Critically low 3.5-5.1 [facility] Comment on above: Performed By: #### U RCX #### [facility] [address] [place] [address] Dr. Paula Hernandez Protein [Mass/Vol] 7.1 g/dL Normal 6.4-8.2 [facility] Comment on above: Performed By: #### U RCX #### [facility] [address] [place] [address] Dr. Paula Hernandez Sodium [Moles/Vol] 130 mmol/L Critically low 136-145 [facility] Comment on above: Performed By: #### U RCX #### [facility] [address] [address] [address] Paula Hernandez Urea nitrogen [Mass/Vol] 8.0 mg/dL Normal 7.0-18.0 [facility] Comment on above: Performed By: #### U RCX #### [facility] [address] [place] [address] Dr. Paula Hernandez Urea nitrogen/Creatinine [Mass ratio] 10.0 mg/mg Normal [facility] Comment on above: Performed By: #### U RCX #### [facility] [address] [address] [address] Paula Hernandez URINE MICROSCOPIC ONLYon BACTERIA SMALL Abnormal NONE SEEN [facility] Comment on above: Performed By: #### E VALERIE IRAHETA ####[facility] [address] [place], [place] [address]Dr. Paula Hernandez Bacteria identified Cx Nom (U) INDICATED Normal [facility] Comment on above: Performed By: #### MAMADOU MADRIGALRO ####[facility] [address]scxksjw[address] [place], [place] [address]Dr. Paula Hernandez CAST NONE SEEN Normal NONE SEEN [facility] Comment on above: Performed By: #### MAMADOU MADRIGALRO ####[facility] [address] [place], [place] [address]Dr. Paula Hernandez Crystals LM Nom (Urine sed) NONE SEEN Normal NONE SEEN [facility] Comment on above: Performed By: #### MAMADOU MADRIGALRO ####[facility] [address]xt[address]ch[address] [place], [place] [address]Dr. Paula Hernandez Epithelial cells LM Ql (Urine sed) MODERATE Abnormal NONE SEEN /RARE [facility] Comment on above: Performed By: #### MAMADOU MADRIGALRO ####[facility] [address] [place], [place] [address]Dr. Paula Hernandez MUCOUS NONE SEEN Normal NONE SEEN [facility] Comment on above: Performed By: #### MAMADOU MADRIGALRO ####[facility] Tr[address]ss[address]oiw[address] [place], [place] [address]Dr. Paula Hernandez RBC NONE SEEN Abnormal 0-2 [facility] Comment on above: Performed By: #### MAMADOU MADRIGALRO ####[facility] [address] [place], [place] [address]Dr. Paula Hernandez WBC 2-5 Abnormal NONE SEEN [facility] Comment on above: Performed By: #### MAMADOU MADRIGALRO ####[facility] [address]ro[address] [place], [place] [address]Dr. Paula Hernandez CULTURE URINEon 08-11-2022 CULTURE URINE Isolate 1 Escherichia coli >100,000 cfu/mL of ORGANISM 1 Escherichia coli ANTIBIOTIC M.I.C RX STATUS Ampicillin >=32 R F Ampicillin/Sulbactam >=32 R F Piperacillin/Tazobact am <=4 S F Cefazolin 8 S F Ceftazidime <=1 S F Ceftriaxone <=1 S F Ertapenem <=0.5 S F Imipenem <=0.25 S F Amikacin <=2 S F Gentamicin <=1 S F Tobramycin <=1 S F Ciprofloxacin 1 S F Levofloxacin 1 S F Nitrofurantoin <=16 S F Trimethoprim/Sulfamet hoxazole <=20 S F Normal [facility] Comment on above: Performed By: #### U RCX #### [facility] [address] [address] [address] Paula Hernandez HEP B SURFACE ANTIGEN SCREEN on 08-10-2022 HBsAg Screen Negative Normal Negative [facility] Comment on above: Performed By: #### U RCX #### [facility] [address] [address] [address] Paula Hernandez HEPATITIS C VIRUS AB W/ REFL EX QUANTon 08-10-2022 HCV AB <0.1 Normal 0.0-0.9 [facility] Comment on above: Performed By: #### H CVPCRR ####[facility] [address] [id number]. Paula Hernandez Interpretation: Comment Normal [facility] Comment on above: Result Comment: Nega tive Not infected with HCV, unless recent infection is suspected or other evidence exists to indicate HCV infection. Performed By: #### H CVPCRR ####[facility] [id number] [place], [place] [address]Wq. Paula Hernandez HIV 1 AND 2 WITH REFLEXon HIV Screen 4th Generation wRfx Non-Reactive Normal Non Reactive [facility] Comment on above: Result Comment: HIV Negative HIV-1/HIV-2 antibodies and HIV-1 p24 antigen were NOT detected. There is no laboratory evidence of HIV infection. Performed By: #### H IV12 ####[facility] [id number] [place] [id number]. Paula Hernandez RPR QUANTon 08-10-2022 Rapid Plasma Reagin, Quant Non-Reactive Normal NonRea<1:1 [facility] Comment on above: Result Comment: Plea se Note: This test does not meet current guidelines for screening and diagnosis of syphilis. This test is intended for following treatment response in patients being treated for syphilis infection. To screen for syphilis infection, a reflex cascade that includes both RPR and a treponema-specific assay should be utilized, such as Treponema pallidum (Syphilis) Screening [place] ([id number]) or Rapid Plasma Reagin (RPR) Test With Reflex to Quantitative RPR and Confirmatory Treponema pallidum Antibodies ([id number]). Performed By: #### R PRQ ####[facility] [id number] [place] [address]Dr. Paula Hernandez RUBELLA AB IGGon 08-10-2022 Rubella Antibodies, IgG 1.22 index Normal Immune >0.99 [facility] Comment on above: Result Comment: Non- immune <0.90 Equivocal 0.90 - 0.99 Immune >0.99 Performed By: #### U RCX #### [facility] [address] [place] [address] Dr. Paula Hernandez CBC AUTO DIFFon 08-09-2022 BASO # 0.0 103/ul Normal 0.0-0.1 [facility] Comment on above: Performed By: #### U RCX #### [facility] [address] [place] [address] Dr. Paula Hernandez Basophils/100 WBC (Bld) 0.4 % Normal 0.2-2.0 [facility] Comment on above: Performed By: #### U RCX #### [facility] [address] [place] [address] Dr. Paula Hernandez EO # 0.2 103/ul Normal 0.0-0.7 [facility] Comment on above: Performed By: #### U RCX #### [facility] [address] [place] [address] Dr. Paula Hernandez Eosinophils/100 WBC (Bld) 1.8 % Normal 0.9-7.0 [facility] Comment on above: Performed By: #### U RCX #### [facility] [address] [place] [address] Dr. Paula Hernandez Erythrocyte distribution width (RBC) [Ratio] 12.2 % Normal 11.0-15.0 [facility] Comment on above: Performed By: #### U RCX #### [facility] [address] [address] [address] Paula Hernandez Hematocrit (Bld) [Volume fraction] 35.6 % Critically low 36.0-48.0 [facility] Comment on above: Performed By: #### U RCX #### [facility] [address] [address] [address] Paula Hernandez Hemoglobin (Bld) [Mass/Vol] 11.5 g/dL Critically low 12.0-16.0 [facility] Comment on above: Performed By: #### U RCX #### [facility] [address] [address] [address] Paula Hernandez IG # 0.05 10e3/ul Critically high 0.00-0.03 [facility] Comment on above: Performed By: #### U RCX #### [facility] [address] [address] [address] Paula Hernandez IG % 0.5 % Normal 0.0-0.5 [facility] Comment on above: Performed By: #### U RCX #### [facility] [address] [address] [address] Paula Hernandez LYMPH # 1.8 103/ul Normal 1.2-3.8 [facility] Comment on above: Performed By: #### U RCX #### [facility] [address] [address] [address] Paula Hernandez Lymphocytes/100 WBC (Bld) 16.9 % Critically low 20.5-60.0 [facility] Comment on above: Performed By: #### U RCX #### [facility] [address] [address] [address] Paula Hernandez MANUAL DIFF REQ NO Normal [facility] Comment on above: Performed By: #### U RCX #### [facility] [address] [address] [address] Paula Hernandez MCH (RBC) [Entitic mass] 29.9 pg Normal 26.7-34.0 [facility] Comment on above: Performed By: #### U RCX #### [facility] [address] [address] [address] Paula Hernandez MCHC (RBC) [Mass/Vol] 32.3 g/dL Normal 29.9-35.2 [facility] Comment on above: Performed By: #### U RCX #### [facility] [address] [address] [address] Paula Hernandez MCV (RBC) [Entitic vol] 92.7 fL Normal 81.0-99.0 [facility] Comment on above: Performed By: #### U RCX #### [facility] [address] [address] [address] Paula Hernandez MONO # 1.2 103/ul Critically high 0.3-0.8 [facility] Comment on above: Performed By: #### U RCX #### [facility] [address] [place] [address] Dr. Paula Hernandez Monocytes/100 WBC (Bld) 11.1 % Normal 1.7-12.0 [facility] Comment on above: Performed By: #### U RCX #### [facility] [address] [address] [address] Paula Hernandez NEUT # 7.5 103/ul Critically high 1.4-6.5 [facility] Comment on above: Performed By: #### U RCX #### [facility] [address] [address] [address] Paula Hernandez Neutrophils/100 WBC (Bld) 69.3 % Normal 43.0-75.0 [facility] Comment on above: Performed By: #### U RCX #### [facility] [address] [address] [address] Paula Hernandez Platelet mean volume (Bld) [Entitic vol] 9.5 fL Normal 9.5-13.5 [facility] Comment on above: Performed By: #### U RCX #### [facility] [address] [address] [address] Paula Hernandez PLT 359 103/ul Normal 150-450 [facility] Comment on above: Performed By: #### U RCX #### [facility] [address] [address] [address] Paula Hernandez RBC 3.84 106/ul Critically low 4.20-5.40 [facility] Comment on above: Performed By: #### U RCX #### [facility] [address] [address] [address] Paula Hernandez WBC 10.7 103/ul Normal 4.0-11.0 [facility] Comment on above: Performed By: #### U RCX #### [facility] [address] [address] [address] Paula Hernandez GLYCOHEMOGLOBIN A1Con 2021 ADA RECOMMENDATION SEE BELOW Normal [facility] Comment on above: Result Comment: ADA RECOMMENDED LIMIT 4.0 - 6.0 ADA THERAPEUTIC TARGET < 7.0 ACTION SUGGESTED > 7.0 Performed By: #### U RCX #### [facility] [address] [address] [address] Paula Hernandez Glucose [Mass/Vol] 94 mg/dL Normal [facility] Comment on above: Performed By: #### U RCX #### [facility] [address] [place] [address] Dr. Paula Hernandez HbA1c (Bld) [Mass fraction] 4.9 % Normal 4.5-6.2 [facility] Comment on above: Performed By: #### U RCX #### [facility] [address] [place] [address] Dr. Paula Hernandez TYPE AND SCREENon 08-09-2022 TYPE AND SCREEN Negative Normal [facility] Comment on above: Performed By: #### T NS #### [facility] [address] [place] [address] Dr. Paula Hernandez US PREG TVon 07-24-2022 US PREG TV EXAMINATION: US PREG TV HISTORY: Missed period COMPARISON: No relevant comparison available. FINDINGS: GESTATIONAL SAC: Present and normal appearing. POLE: Present and normal appearing. YOLK SAC: Present. CARDIAC: Present. UTERUS: Normal size and appearance. OVARIES: Right: Normal. Left: Corpus lutein cyst. CERVIX: 3.9 cm in length and closed. CUL-DE-SAC: Normal. OTHER: None. AGE BY LMP: 9 weeks 3 days GEORGE BY LMP: 02/23/2023 AGE BY US CRL: 6 weeks 5 days GEORGE BY US CRL: 03/14/2023 IMPRESSION: 1. Single live intrauterine . Electronically authenticated by: AP CASTILLO Date: 2022-07-24 16:28 Normal [facility] COMPREHENSIVE METABOLIC PANE [facility] 05-03-2021 Albumin [Mass/Vol] 4.4 g/dL Normal 3.6-5.1 [facility] Comment on above: Performed By: #### 1 023, 7600 #### [facility] [place] [address] [employer] Labourer: Mukesh Snow MD Albumin/Globulin [Mass ratio] 1.6 {ratio} Normal 1.0-2.5 [facility] Comment on above: Performed By: #### 1 023, 7600 #### [facility] [place] [address] [employer] Labourer: Mukesh Snow MD ALP [Catalytic activity/Vol] 57 U/L Normal 31-125 [facility] Comment on above: Performed By: #### 1 0231, 7600 #### [facility] [place] [address] [employer] Labourer: Mukesh Snow MD ALT [Catalytic activity/Vol] 9 U/L Normal 6-29 [facility] Comment on above: Performed By: #### 1 0231, 7600 #### [facility] [place] [address] [employer] Labourer: Mukesh Snow MD AST [Catalytic activity/Vol] 13 U/L Normal 10-30 [facility] Comment on above: Performed By: #### 1 0231, 7600 #### [facility] [place] [address] [employer]rer: Mukesh Snow MD Bilirubin [Mass/Vol] 0.3 mg/dL Normal 0.2-1.2 [facility] Comment on above: Performed By: #### 1 0231, 7600 #### [facility] of [address], [address] [place] [address] [employer]rer: Mukesh Snow MD BUN/CREATININE RATIO NOT APPLICABLE Normal 6-22 [facility] Comment on above: Performed By: #### 1 0231, 7600 #### [facility] of [address], [address] [place] [address] [employer]ourer: Mukesh Snow MD Calcium [Mass/Vol] 9.2 mg/dL Normal 8.6-10.2 [facility] Comment on above: Performed By: #### 1 0231, 7600 #### [facility] of [place] [address] [employer]rer: Mukesh Snow MD Chloride [Moles/Vol] 105 mmol/L Normal 98-110 [facility] Comment on above: Performed By: #### 1 023, 7600 #### [facility] of [place] [address] [employer]rer: Mukesh Snow MD CO2 [Moles/Vol] 25 mmol/L Normal 20-32 [facility] Comment on above: Performed By: #### 1 0231, 7600 #### [facility] of [place] [address] [employer]: Mukesh Snow MD Creatinine [Mass/Vol] 1.00 mg/dL Normal 0.50-1.10 [facility] Comment on above: Performed By: #### 1 0231, 7600 #### [facility] of [place] [address] [employer]rer: Mukesh Snow MD eGFR NON-AFR. CHILEAN 75 mL/min/1.73m2 Normal > OR = 60 [facility] Comment on above: Performed By: #### 1 0231, 7600 #### [facility] of [place] [address] [employer]ourer: Mukesh Snow MD GFR/1.73 sq M.predicted among blacks MDRD (S/P/Bld) [Vol rate/Area] 87 mL/min/{1.73_m2} Normal > OR = 60 [facility] Comment on above: Performed By: #### 1 023, 7600 #### [facility] [place] [address] [employer]rer: Mukesh Snow MD Globulin (S) [Mass/Vol] 2.8 g/dL Normal 1.9-3.7 [facility] Comment on above: Performed By: #### 1 023, 7600 #### [facility] [place] [address] [employer]rer: Mukesh Snow MD Glucose [Mass/Vol] 82 mg/dL Normal 65-139 [facility] Comment on above: Result Comment: Non-fasting reference interval Performed By: #### 1 230, 7600 #### [facility] [place] [address] [employer]: Mukesh Snow MD Potassium [Moles/Vol] 3.9 mmol/L Normal 3.5-5.3 [facility] Comment on above: Performed By: #### 1 023, 7600 #### [facility] [place] [address] [employer]ourer: Mukesh Snow MD Protein [Mass/Vol] 7.2 g/dL Normal 6.1-8.1 [facility] Comment on above: Performed By: #### 1 023, 7600 #### [facility] of [place] [address] [employer]ourer: Mukesh Snow MD Sodium [Moles/Vol] 137 mmol/L Normal 135-146 [facility] Comment on above: Performed By: #### 1 023, 7600 #### [facility] of [place] [address] [employer]ourer: Mukesh Snow MD Urea nitrogen [Mass/Vol] 10 mg/dL Normal 7-25 [facility] Comment on above: Performed By: #### 1 0231, 7600 #### [facility] [address], [address] [place] [address] [employer]ourer: Mukesh Snow MD LIPID PANEL, [facility] Cholesterol [Mass/Vol] 224 mg/dL High <200 [facility] Comment on above: Order Comment: FASTI NG:NO FASTING: NO Performed By: #### 1 0231, 7600 #### [facility] [address], [address] [place] [address] [employer]ourer: Mukesh Snow MD Cholesterol in HDL [Mass/Vol] 62 mg/dL Normal > OR = 50 [facility] Comment on above: Order Comment: FASTI NG:NO FASTING: NO Performed By: #### 1 023, 0 #### [facility] [address], [address] [place] [address] [employer]ourer: Mukesh Snow MD Cholesterol in LDL [Mass/Vol] 133 mg/dL High [facility] Comment on above: Order Comment: FASTI NG:NO FASTING: NO Result Comment: Refe rence range: <100 Desirable range <100 mg/dL for primary prevention; <70 mg/dL for patients with CHD or diabetic patients with > or = 2 CHD risk factors. LDL-C is now calculated using the Jose-Jennifer calculation, which is a validated novel method providing better accuracy than the Friedewald equation in the estimation of LDL-C. Jose CÁRDENAS et al. CARLOZ. 2013;310(19): 5779-3649 (http://education.[employer].MILI/faq/NSX200) Performed By: #### 1 023, 0 #### [facility] [address], [address] [place] [address] [employer] Labourer: Mukesh Snow MD Cholesterol.total/Ch olesterol in HDL [Mass ratio] 3.6 {ratio} Normal <5.0 [facility] Comment on above: Order Comment: FASTI NG:NO FASTING: NO Performed By: #### 1 023, 0 #### [facility] [address], [address] [address] [employer]ourer: Mukesh Snow MD NON HDL CHOLESTEROL 162 mg/dL (calc) High <130 [facility] Comment on above: Order Comment: FASTI NG:NO FASTING: NO Result Comment: For patients with diabetes plus 1 major ASCVD risk factor, treating to a non-HDL-C goal of <100 mg/dL (LDL-C of <70 mg/dL) is considered a therapeutic option. Performed By: #### 1 023, 7600 #### [facility] [address], [address] [place] [address] [employer]ourer: Mukesh Snow MD Triglyceride [Mass/Vol] 155 mg/dL High <150 [facility] Comment on above: Order Comment: FASTI NG:NO FASTING: NO Performed By: #### 1 023, 0 #### [facility] [address], [address] [place] [address] [employer]: Mukesh Snow MD Vital Signs Date Time Vital Sign Value Performing Clinician Facility 08-19-2024 10:[id number] Body height 152.4 cm Alexsander Farnsworth DO Work Phone: [facility] 08-19-2024 10:07-0400 Body mass index (BMI) [Ratio] 21.87 kg/m2 Alexsander Farnsworth DO Work Phone: [facility] 08-19-2024 10:07-0400 Body temperature 97.7 [degF] Alexsander Farnsworth DO Work Phone: [facility] 08-19-2024 10:07-0400 Body weight 50.8 kg Alexsander Farnsworth DO Work Phone: [facility] 08-19-2024 10:07-0400 Diastolic blood pressure 78 mm[Hg] Alexsander Farnsworth DO Work Phone: [facility] 08-19-2024 10:07-0400 Heart rate 106 /min Alexsander Farnsworth DO Work Phone: [facility] 08-19-2024 10:07-0400 Respiratory rate 18 /min Alexsander Stephensonhas DO Work Phone: [facility] 08-19-2024 10:07-0400 SaO2% (BldA) [Mass fraction] 100 % Alexsander Stephensonhas DO Work Phone: [facility] 08-19-2024 10:07-0400 Systolic blood pressure 100 mm[Hg] Alexsander Yuhas DO Work Phone: [facility] 06-24-2024 11:07-0400 Body height 152.4 cm Alexsander Yuhas DO Work Phone: [facility] 06-24-2024 11:07-0400 Body mass index (BMI) [Ratio] 20.94 kg/m2 Alexsander Yuhas DO Work Phone: [facility] 06-24-2024 11:07-0400 Body temperature 99.19 [degF] Alexsander Stephensonhas DO Work Phone: [facility] 06-24-2024 11:07-0400 Body weight 48.63 kg Alexsander Stephensonhas DO Work Phone: [facility] 06-24-2024 11:07-0400 Diastolic blood pressure 62 mm[Hg] Alexsander Stephensonhas DO Work Phone: [facility] 06-24-2024 11:07-0400 Heart rate 76 /min Alexsander Yuhas DO Work Phone: [facility] 06-24-2024 11:07-0400 Respiratory rate 18 /min Alexsander Stephensonhas DO Work Phone: [facility] 06-24-2024 11:07-0400 SaO2% (BldA) [Mass fraction] 99 % Alexsander Stephensonhas DO Work Phone: [facility] 06-24-2024 11:07-0400 Systolic blood pressure 90 mm[Hg] Alexsander Yuhas DO Work Phone: [facility] 05-16-2024 15:10-0400 Body height 152.4 cm Alexsander Farnsworth DO Work Phone: [facility] 05-16-2024 15:10-0400 Body mass index (BMI) [Ratio] 21.46 kg/m2 Alexsander Farnsworth DO Work Phone: [facility] 05-16-2024 15:10-0400 Body temperature 97.59 [degF] Alexsander Farnsworth DO Work Phone: [facility] 05-16-2024 15:10-0400 Body weight 49.85 kg Alexsander Farnsworth DO Work Phone: [facility] 05-16-2024 15:10-0400 Diastolic blood pressure 64 mm[Hg] Alexsander Farnsworth DO Work Phone: [facility] 05-16-2024 15:10-0400 Heart rate 93 /min Alexsander Farnsworth DO Work Phone: [facility] 05-16-2024 15:10-0400 Respiratory rate 18 /min Alexsander Farnsworth DO Work Phone: [facility] 05-16-2024 15:10-0400 SaO2% (BldA) [Mass fraction] 100 % Alexsander Farnsworth DO Work Phone: [facility] 05-16-2024 15:10-0400 Systolic blood pressure 100 mm[Hg] Alexsander Farnsworth DO Work Phone: [facility] 01-25-2024 11:21-0400 Body height 152.4 cm Kira Vaughnjim VELASQUEZJacquelynTHERAPEUTIC CASE MANAGER Work Phone: [facility] 01-25-2024 11:21-0400 Body mass index (BMI) [Ratio] 21.33 kg/m2 Kira Vaughnjim VELASQUEZ-THERAPEUTIC CASE MANAGER Work Phone: [facility] 01-25-2024 11:21-0400 Body temperature 98.1 [degF] Kira Berry FIELD REPORTER-THERAPEUTIC CASE MANAGER [facility] 01-25-2024 11:21-0400 Body weight 49.53 kg Kira Berry FIELD REPORTER-THERAPEUTIC CASE MANAGER [facility] 01-25-2024 11:21-0400 Diastolic blood pressure 64 mm[Hg] Kira Berry FIELD REPORTER-THERAPEUTIC CASE MANAGER [facility] 01-25-2024 11:21-0400 Heart rate 64 /min Kira Berry FIELD REPORTER-THERAPEUTIC CASE MANAGER [facility] 01-25-2024 11:21-0400 Respiratory rate 18 /min Kira Berry FIELD REPORTER-THERAPEUTIC CASE MANAGER [facility] 01-25-2024 11:21-0400 SaO2% (BldA) [Mass fraction] 97 % Kira Berry FIELD REPORTER-THERAPEUTIC CASE MANAGER [facility] 01-25-2024 11:21-0400 Systolic blood pressure 110 mm[Hg] Kira Berry FIELD REPORTER-THERAPEUTIC CASE MANAGER Work Phone: [facility] Encounters Encounter Date Encounter Type Care Provider Facility Start: 11-28-2024 End: 11-28-2024 Clinisync Result Encounter Natasha Rachel DO Work Phone: [facility] Unsolicited Start: 11-28-2024 End: 11-28-2024 Clinisync Result Encounter Natasha Rachel DO Work Phone: [facility] Unsolicited Start: 11-18-2024 End: 11-18-2024 Office outpatient visit 5 minutes [facility] Rachel Nurse [facility] Comment on above: GA: 10w0d Start: 08-19-2024 End: 08-19-2024 ambulatory [facility] Start: 08-19-2024 End: 08-19-2024 Office outpatient visit 25 minutes Alexsander Farnsworth DO Work Phone: [facility] Comment on above: Orthostatic hypotens ion (Primary Dx); Palpitations; Benign paroxysmal positional vertigo, unspecified laterality; Upper respiratory symptom Start: 06-28-2024 End: 07-06-2024 Telephone encounter Alexsander Farnsworth DO Work Phone: [facility] Start: 06-24-2024 End: 06-24-2024 Office outpatient visit 25 minutes Alexsander Farnsworth DO Work Phone: [facility] Comment on above: Orthostatic hypotens ion (Primary Dx); Palpitations Start: 06-24-2024 End: 06-24-2024 [facility] Start: 06-17-2024 End: 06-17-2024 ambulatory [facility] Start: 06-03-2024 End: 06-03-2024 ambulatory [facility] Start: 05-16-2024 End: 05-16-2024 ambulatory [facility] Start: 05-16-2024 End: 05-16-2024 Office outpatient visit 25 minutes Alexsander Farnsworth DO Work Phone: [facility] Comment on above: Orthostatic hypotens ion (Primary Dx); Palpitations Start: 05-16-2024 End: 05-16-2024 ambulatory [facility] Start: 01-25-2024 End: 01-25-2024 Office outpatient visit 15 minutes Kira Berry FIELD REPORTER-THERAPEUTIC CASE MANAGER Work Phone: [facility] Comment on above: Pharyngitis, unspeci fied etiology (Primary Dx); Flu-like symptoms; Gastroenteritis; Dizziness Start: 01-25-2024 End: 01-25-2024 ambulatory KIRA BERRY [facility] Start: 03-11-2023 End: 03-11-[address] ALEXSANDER FARNSWORTH Facility:[facility] Start: 03-05-2023 End: 03-07-2023 Evaluation and management of inpatient DR NATASHA RAMOS . Facility:[facility] Start: 02-11-2023 End: 02-11-[address] NATASHA RAMOS . Facility:[facility] Start: 12-17-2022 End: 12-18-[address] NATASHA RAMOS . Facility:[facility] Start: 12-09-2022 End: 12-09-[address] ALEXSANDER FARNSWORTH Facility:[facility] Start: 11-27-2022 Encounter for gynecological examination (general) (routine) without abnormal findings DR NATASHA RAMOS . [facility] Start: 11-26-2022 End: 11-26-[address] NATASHA RAMOS . Facility:[facility] Start: 11-26-2022 End: 11-26-2022 Encounter for gynecological examination (general) (routine) without abnormal findings DR NATASHA RAMOS . Facility:[facility] Start: 11-10-2022 End: 11-11-[address] NATASHA RAMOS . Facility:[facility] Start: 10-21-2022 End: 10-22-[address] NATASHA RAMOS . Facility:[facility] Start: 10-11-2022 End: 10-11-2022 ambulatory J CARLOS VILLA . Facility:[facility] Start: 08-09-2022 End: 08-10-[address] NATASHA RAMOS . Facility:[facility] Start: 07-24-2022 End: 07-25-[address] NATASHA RAMOS . Facility: Procedures Date Procedure Procedure Detail Performing Clinician Start: 11-28-2024 ALL CBC WITH AUTO DIFF Natasha Ramos DO Work Phone: Start: 11-18-2024 Urnls dip stick/tabl et rgnt non-auto w/o micrscp Natasha Israelo DO Work Phone: Start: 08-19-2024 POCT INFLUENZA A/INF LUENZA B/SARS-COV-2 VERITOR Alexsander Farnsworth DO Work Phone: Start: 08-19-2024 Iaadiadoo streptococ cus group a Alexsander Farnsworth DO Work Phone: Start: 08-19-2024 Adult depression scr eening assessment Alexsander Farnsworth DO Work Phone: Start: 05-16-2024 Adult depression scr eening assessment Alexsander Farnsworth DO Work Phone: Start: 01-25-2024 POCT INFLUENZA A/INF LUENZA B/SARS-COV-2 VERITOR Kira Berry FIELD REPORTER-THERAPEUTIC CASE MANAGER Work Phone: Start: 01-25-2024 Iaadiadoo streptococ cus group a Kira Berry FIELD REPORTER-THERAPEUTIC CASE MANAGER Work Phone: Start: 01-25-2024 Adult depression scr eening assessment Kira Berry FIELD REPORTER-THERAPEUTIC CASE MANAGER Work Phone: Start: 03-06-2023 Transfusion of Nonautologous Red Blood Cells into Peripheral Vein, Percutaneous Approach [facility] . Start: 03-05-2023 Extraction of Produc ts of Conception, Low Cervical, Open Approach [facility] . Plan of Treatment Date Care Activity Detail Author Start: 08-19-2025 Adult BMI Screening Adult BMI Screen ing [facility] Start: 08-19-2025 Depression Screening Depression Scre [facility] Start: 08-19-2025 Tobacco Screening Tobacco Screening [facility] Start: 06-24-2025 Adult BMI Screening Adult BMI Screen ing [facility] Start: 06-24-2025 Tobacco Screening Tobacco Screening [facility] Start: 05-16-2025 Adult BMI Screening Adult BMI Screen ing [facility] Start: 05-16-2025 Depression Screening Depression Scre ening [facility] Start: 05-16-2025 Tobacco Screening Tobacco Screening [facility] Start: 01-24-2025 Adult BMI Screening Adult BMI Screen ing [facility] Start: 01-24-2025 Depression Screening Depression Scre ening [facility] Start: 01-24-2025 Tobacco Screening Tobacco Screening [facility] Start: 12-19-2024 End: 12-19-2024 Patient encounter procedure 12/19/2024 9:40 AM EST Routine [facility] [address] [place] [address] Natasha Ramos DO [address] [place] [address] [facility] Start: 11-18-2024 End: 11-18-2025 ABO/Rh ABO/Rh Lab Routine Missed menses , unspecified gestational age Expected: 11/18/2024 (Approximate), Expires: 11/18/2025 [facility] Comment on above: Expected: 11/18/2024 (Approximate), Expires: 11/18/2025 Start: 11-18-2024 End: 11-18-2025 Blood type and Indirect antibody screen panel - Blood Type and screen Lab Routine Missed menses , unspecified gestational age Expected: 11/18/2024 (Approximate), Expires: 11/18/2025 [facility] Comment on above: Expected: 11/18/2024 (Approximate), Expires: 11/18/2025 Start: 11-18-2024 End: 11-18-2025 Drugs of abuse panel - Urine by Screen method Rapid drug screen, urine Lab Routine , unspecified gestational age Encounter for supervision of normal first in first trimester Expected: 11/18/2024 (Approximate), Expires: 11/18/2025 [facility] Comment on above: Expected: 11/18/2024 (Approximate), Expires: 11/18/2025 Start: 11-17-2024 End: 11-17-2025 US Pelvis transvaginal US OB transvaginal Imaging Routine Missed menses Expected: 11/17/2024, Expires: 11/17/2025 [facility] Work Phone: Comment on above: Expected: 11/17/2024 , Expires: 11/17/2025 Start: 08-19-2024 End: 08-19-2024 Patient encounter procedure 08/19/2024 10:00 AM EDT Office Visit [facility] [address] [place] [address] Alexsander Farnsworth DO [address] [place] [address] [facility] Start: 06-26-2024 COVID-19 Vaccine ( season) COVID-19 Vaccine ( season) [facility] Start: 06-26-2024 Influenza vaccination [facility] Start: 06-24-2024 End: 06-24-2024 Patient encounter procedure 06/24/2024 11:00 AM EDT [facility] [address] [place] [address] Alexsander Farnsworth DO [address] [place] [address] [facility] Start: 05-16-2024 End: 05-16-2025 Echo complete W/O contrast Echo complete W/O contrast Echocardiography Routine Orthostatic hypotension Expected: 05/16/2024, Expires: 05/16/2025 [facility] Comment on above: Expected: 05/16/2024 , Expires: 05/16/2025 Start: 05-16-2024 End: 05-16-2025 Event monitor Event monitor Cardiac Services Routine Orthostatic hypotension Expected: 05/16/2024, Expires: 05/16/2025 [facility] Comment on above: Expected: 05/16/2024 , Expires: 05/16/2025 Start: 10-07-2023 DTaP,Tdap and Td Vaccines (6 - Tdap) DTaP,Tdap and Td Vaccines (6 - Tdap) [facility] Start: 06-26-2023 COVID-19 Vaccine ( season) COVID-19 Vaccine ( season) [facility] Start: 2020 Screening for malign ant neoplasm of cervix [facility] Start: 2011 Screening for malign ant neoplasm of cervix Pap Smear [facility] Start: 2009 DTaP,Tdap and Td Vaccines (1 - Tdap) DTaP,Tdap and Td Vaccines (1 - Tdap) [facility] Bacteria identified in Urine by Culture Urine culture Microbiology Routine Missed menses Ordered: 11/18/2024 [facility] Comment on above: Ordered: 11/18/2024 CBC W Auto Different ial panel - Blood CBC and differential Lab Routine Missed menses , unspecified gestational age Ordered: 11/18/2024 [facility] Comment on above: Ordered: 11/18/2024 End: 05-16-2025 CBC W Auto Differential panel - Blood CBC auto differential Lab Routine Palpitations 1 Occurrences starting 05/16/2024 until 05/16/[address] [facility] on [facility]: 1 Occurrences starti ng 05/16/2024 until 05/16/2025 End: 05-16-2025 Comprehensive metabolic 2000 panel - Serum or Plasma Comprehensive metabolic panel Lab Routine Palpitations 1 Occurrences starting 05/16/2024 until 05/16/2025 [employer] Phone: Comment on above: 1 Occurrences starti ng 05/16/2024 until 05/16/2025 End: 05-16-2025 Cyanocobalamin vitamin b-12 Vitamin B12 Lab Routine Palpitations 1 Occurrences starting 05/16/2024 until 05/16/2025 [facility] Comment on above: 1 Occurrences starti ng 05/16/2024 until 05/16/2025 Hemoglobin A1c/Hemoglobin.total in Blood Hemoglobin A1c Lab Routine Missed menses , unspecified gestational age Ordered: 11/18/2024 [facility] Comment on above: Ordered: 11/18/2024 Hepatitis B virus surface Ag [Presence] in Serum or Plasma by Immunoassay Hepatitis B surface antigen Lab Routine Missed menses , unspecified gestational age Ordered: 11/18/2024 [facility] Comment on above: Ordered: 11/18/2024 Hepatitis C virus Ab [Presence] in Serum or Plasma by Immunoassay Hepatitis C antibody Lab Routine Missed menses , unspecified gestational age Ordered: 11/18/2024 [facility] Comment on above: Ordered: 11/18/2024 HIV-1/HIV-2 antigen/antibody combination immunoassay HIV-1 and HIV-2 antibodies Lab Routine Missed menses , unspecified gestational age Ordered: 11/18/2024 [facility] Comment on above: Ordered: 11/18/2024 End: 05-16-2025 Iron and TIBC Iron and TIBC Lab Routine Palpitations 1 Occurrences starting 05/16/2024 until 05/16/2025 [facility] Comment on above: 1 Occurrences starti ng 05/16/2024 until 05/16/2025 Reagin Ab [Presence] in Serum by RPR RPR Lab Routine Missed menses , unspecified gestational age Ordered: 11/18/2024 [facility] Comment on above: Ordered: 11/18/2024 Rubella antibody, IgG Rubella an tibody, IgG Lab Routine Missed menses , unspecified gestational age Ordered: 11/18/2024 [facility] Comment on above: Ordered: 11/18/2024 End: 05-16-2025 TSH with Reflex TSH with Reflex Lab Routine Palpitations 1 Occurrences starting 05/16/2024 until 05/16/2025 [facility] Comment on above: 1 Occurrences starti ng 05/16/2024 until 05/16/2025 US Pelvis transvaginal US OB tra nsvaginal Imaging Routine Missed menses 11/18/2024 9:19 AM EST [facility] Immunizations Immunization Date Immunization Notes Care Provider Sandrine soto 10-07-2013 diphtheria, tetanus toxoids and pertussis vaccine Alexsander Dees DO Work Phone: [facility] 05-14-1992 diphtheria, tetanus toxoids and pertussis vaccine Alexsander Stephensonhas DO Work Phone: [facility] 05-14-1992 poliovirus vaccine, unspecified formulation Alexsander Dees DO Work Phone: [facility] 07-11-1991 measles, mumps and rubella virus vaccine Alexsander Yuhas DO Work Phone: [facility] 1990 diphtheria, tetanus toxoids and pertussis vaccine Alexsander Stephensonhas DO Work Phone: [facility] 1990 poliovirus vaccine, unspecified formulation Alexsander Dees DO Work Phone: [facility] 1990 diphtheria, tetanus toxoids and pertussis vaccine Alexsander Yuhas DO Work Phone: [facility] 1990 diphtheria, tetanus toxoids and pertussis vaccine Alexsander Farnsworth DO Work Phone: [facility] 1990 poliovirus vaccine, unspecified formulation Alexsander Farnsworth DO Work Phone: [facility] Payers Date Payer Category Payer Private Health Insurance [id number] 2003 Medicaid [id number] 1990 Unknown [id number] 2.16.84 [id number] 1990 Unknown [id number] 2.16.84 0.1.318045.3.579.2.593 1990 Unknown [id number] 2.16.84 0.1.256717.3.579.2.593 1990 Unknown [id number] 2.16.84 0.1.715074.3.579.2.593 1990 Unknown [id number] 2.16.84 0.1.530991.3.579.2.593 1990 Unknown [id number] 2.16.84 0.1.008974.3.579.2.593 1990 Unknown [id number] 2.16.84 0.1.217839.3.579.2.593 1990 Unknown [id number] 2.16.84 0.1.535708.3.579.2.593 1990 Unknown [id number] 2.16.84 0.1.166448.3.579.2.593 1990 Unknown [id number] 2.16.84 0.1.001644.3.579.2.593 1990 Unknown [id number] 2.16.84 0.1.056245.3.579.2.593 1990 Unknown [id number] 2.16.84 0.1.207249.3.579.2.593 1990 Unknown [id number] 2.16.8 40.1.087643.3.579.2.1286 1990 Unknown [id number] 2.16.8 40.1.744233.3.579.2.1286 1990 Unknown [id number] 2.16.8 40.1.548017.3.579.2.1285 1990 Unknown [id number] 2.16.8 40.1.001045.3.579.2.128 1990 Unknown [id number] 2.16.8 40.1.832902.3.579.2.128 1990 Unknown [id number] 2.16.8 40.1.702804.3.579.2.1286 1990 Unknown [id number] 2.16.8 40.1.931840.3.579.2.1286 1959 Unknown [id number] 1959 Unknown [id number] Social History Date Type Detail Facility Start: 04-17-2023 End: 05-13-2023 Tobacco smoking status NHIS Never smoked tobacco [facility] Start: 11-18-2024 Alcoholic beverage intake Lifetime non-drinker (finding) [facility] Start: 12-06-2020 End: 11-18-2024 History of Social function [facility] Start: 12-06-2020 End: 11-18-2024 Tobacco use panel [facility] Start: 09-23-2024 [facility] Start: 1990 Sex assigned at Not on file P [facility] Start: 05-13-2023 Tobacco use and exposure Smokeless tobacco non-user [facility] Start: 05-16-2024 End: 08-19-2024 Alcoholic beverage intake Current drinker of alcohol (finding) [facility] Adolescent depressio n screening assessment 0 [facility] Start: 05-13-2023 Alcohol Comment Occasional [facility] Start: 05-31-2015 Sex Female (finding) [facility] Goals Date Patient Goal Desired Activity /State Personal health goal Comment on above: Formatting of this n ote might be different from the original. Evaluation of progress towards goal: home w family Clinical Notes 03-05-2023 to 11-18-2024 Machelle Germain MA - 11/18/2024 9:30 AM Ted Farnsworth, - 08/19/2024 10:00 AM EDTTelephone Encounter - Deann Cortésjustin - 06/28/2024 2:34 PM EDTAlexsander Farnsworth, - 06/24/2024 11:00 AM EDT Note Date & Type Note Facility 11-18-2024 History of Presen t illness Narrative Reason for Appointment: Patient ID: Marilee Mercado is a 34 y.o. female who presents for Amenorrhea Patient presents today for a Nurse OB Intake appointment. Patient is 10w0d with a Estimated Date of Delivery: 06/16/25 OB History Para Term AB Living 5 4 4 SAB IAB Ectopic Multiple Live Births 4 # Outcome Date GA Lbr Rajan/2nd Weight Sex Type Anes PTL Lv 5 Current 4 Para 03/05/23 F CS-Unspec N DAT 3 Para 01/13/18 M CS-Unspec N DAT Complications: Failure to Progress in Second Stage 2 Para 10/07/ M CS-Unspec N DAT 1 Para 12/06/12 F Vag-Spont N DAT Current Medications: has a current medication list which includes the following prescription(s): vitamin. Medical History: Active Ambulatory Problems Diagnosis Date Noted No Active Ambulatory Problems Resolved Ambulatory Problems Diagnosis Date Noted No Resolved Ambulatory Problems Past Medical History: Diagnosis Date Gardnerella vaginitis HPV (human papilloma virus) infection Renal calculi Right adnexal tenderness Scoliosis Seizures (CMS/HCC) UTI (urinary tract infection) Family History Problem Relation Name Age of Onset Hypertension Mother Brain cancer Mother Hypertension Father Arthritis Maternal Grandmother Diabetes Maternal Grandmother Type II Other (Cerebrovascular accident) Maternal Grandmother Arthritis Paternal Grandmother Arthritis Paternal Grandfather No Known Problems Daughter No Known Problems Daughter No Known Problems Son No Known Problems Son Social History Tobacco Use Smoking status: Never Smokeless tobacco: Not on file Substance Use Topics Alcohol use: Never Drug use: Never Past Surgical History: Procedure Laterality Date SECTION, CLASSIC 12/06/2012 SECTION, LOW TRANSVERSE 03/05/2023 SECTION, LOW TRANSVERSE 10/07/2014 SECTION, LOW TRANSVERSE 01/13/2018 No Known Allergies Vitals: Estimated body mass index is 20.97 kg/m as calculated from the following: Height as of 04/14/23: 5' 1 . Weight as of 04/14/23: 111 lb. BP: Patient's last menstrual period was 09/09/2024. Assessment/Plan Diagnoses and all orders for this visit: Missed menses - US OB transvaginal; Future - Type and screen; Future - ABO/Rh; Future - CBC and differential - Hemoglobin A1c - RPR - Rubella antibody, IgG - Hepatitis B surface antigen - Hepatitis C antibody - HIV-1 and HIV-2 antibodies - Urine culture - POCT , urine manually resulted - POCT urinalysis dipstick manually resulted 10 weeks gestation of , unspecified gestational age - Type and screen; Future - ABO/Rh; Future - CBC and differential - Hemoglobin A1c - RPR - Rubella antibody, IgG - Hepatitis B surface antigen - Hepatitis C antibody - HIV-1 and HIV-2 antibodies - Rapid drug screen, urine; Future Encounter for supervision of normal first in first trimester - Rapid drug screen, urine; Future Nurse Note: OB Intake: Patient presents today for first OB visit. Patients history has been reviewed in great detail including any potential risks. Patient signed consent forms and patient desires testing in both trimesters. Patient currently has no complaints and has been advised to drink 6-8 glasses of water a day, eat no raw or undercooked meat, and stay away from [facility]. Patient has also been advised to not change litter boxes and eat 6 small meals a day. Patient has been consulted regarding the do's and don'ts of . Patient was given labs and all questions and concerns were answered. Pt did state she has seen her PCP due to her low blood pressure issue after delivering G4 baby in 2022. Pt states she is not on any current medications just adding more salt into her diet. Follow Up: Patient is to return in 4 weeks for routine OB appointment. Follow Up: Patient is to have labs drawn at directed and return to office for initial OB appointment with provider. Patient may call office as needed with any concerns or questions. Nurse Visit Completed by: Machelle Germain MA documented in this encounter [facility] 08-19-2024 History of Presen t illness Narrative IM PROGRESS NOTE Patient - Marilee Mercado [facility] - 34 [facility] 1990 [id number] ASSESSMENT & PLAN 1. Orthostatic hypotension (Primary) -blood pressure improved today -no longer having symptoms of presyncope -continue current regimen of increased fluid intake, without restricting sodium in the diet 2. Palpitations -these symptoms have resolved. -I reviewed the results of the event monitor with the patient. No ectopy was noted on rhythm strips. -did have sinus tachycardia as fast as 166 beats per minute -no further medication needed at this time. 3. Benign paroxysmal positional vertigo, unspecified laterality -intermittent episodes related to changes in body positioning -occurs rarely enough that no active treatment needed unless symptoms worsen 4. Upper respiratory symptom -SLOOP CAPTAIN and throat swab were performed today. All were negative - POCT Influenza A/Influenza B/SARS-COV-2 Veritor - POCT rapid strep A Subjective 34-year-old female presents for recheck on her palpitations, lightheadedness, and near-syncope. At last visit, was noted to have low blood pressures with orthostatic changes. Was advised to increase fluid intake, as well as increase her sodium intake. She also wore a event monitor. -since increasing fluid intake and adding sodium back into her diet, her symptoms have improved by 90%. -no longer feeling any palpitations. -not currently on any medications. A review of systems was negative except for the following: General: fatigue ENT: vertigo and will occur if she turns too quickly, or sits up too quickly. Will last about 60-90 seconds, then resolve on its own.. Respiratory: Patient has been having sore throat, nasal congestion postnasal drainage for the past 4-5 days. 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 Constitutional: General: She is not in acute distress. Appearance: She is well-developed and normal weight. She is not toxic-appearing. HENT: Head: Normocephalic. Right Ear: External ear normal. Left Ear: External ear normal. Nose: No rhinorrhea. Mouth/Throat: Mouth: Mucous membranes are moist. Eyes: General: No scleral icterus. Neck: Vascular: No carotid bruit. Cardiovascular: Rate and Rhythm: Normal rate and regular rhythm. Pulses: Normal pulses. Heart sounds: No murmur heard. No gallop. Pulmonary: Effort: Pulmonary effort is normal. Breath sounds: No wheezing or rales. Abdominal: Palpations: Abdomen is soft. Musculoskeletal: Right lower leg: No edema. Left lower leg: No edema. Lymphadenopathy: Cervical: No cervical adenopathy. Skin: General: Skin is warm and dry. Coloration: Skin is not jaundiced. Findings: No bruising. Neurological: Mental Status: She is alert and oriented to person, place, and time. Motor: No weakness. Coordination: Coordination normal. Deep Tendon Reflexes: Reflexes are normal and symmetric. Psychiatric: Mood and Affect: Mood normal. Behavior: Behavior normal. Meds No current outpatient medications on file. Lab Results Office Visit on 08/19/2024 Component Date Value Ref Range Status External Poct Influenza A Antigen 08/19/2024 Negative Final External Poct Influenza B Antigen 08/19/2024 Negative Final External POCT SARS COV 2 Veritor 08/19/2024 Presumptive Negative Final External Poct Rapid Strep A 08/19/2024 Negative Negative Final Other Testing No results found. Alexsander Farnsworth DO., [facility] Office: [phone] documented in this encounter [facility] [employer] [facility] 06-28-2024 Miscellaneous Notes Formattin g of this note might be different from the original. Where do compression stockings need to be sent Message noted. Wherever she wants them sent. Her choice of DME supplier is [employer] or [employer] Lm on vm going to [facility] documented in this encounter [facility] 06-28-2024 Telephone encount er Note Where do compression stockings need to be sent [facility] 06-28-2024 Telephone encount er Note Message noted. Wherever she wants them sent. Her choice of DME supplier is [employer] [facility] 06-28-2024 Telephone encount er Note Lm on vm [facility] 06-28-2024 Telephone encount er Note going to [facility] 06-24-2024 History of Presen t illness Narrative IM PROGRESS NOTE Patient - Marilee Mercado Age - 34 y.o. - 1990 ASSESSMENT & PLAN 1. Orthostatic hypotension -I reviewed the results of her recent testing with the patient. No obvious reason for the orthostasis on echo. -we will have her increase her sodium intake on a daily basis. A printed sheet with sodium values for foods was given to the patient, and she should try to get at least 0286-8592 g sodium daily. -in addition, needs to start wearing compression stockings, medium to high level (minimum 30 mmHg compression). Written parameters given to the patient, and she will try to purchase these OTC. If unable to find, will need a prescription for them. Should wear these daily from the morning until she goes to bed in the evening. -if the above changes do not help with her symptoms, may need to add midodrine. 2. Palpitations -symptoms are less -event monitor results are pending. -further recommendations following the results. Subjective 34-year-old female presents for review of her symptoms of lightheadedness and presyncope, and to review recent testing. -she continues to have episodes of lightheadedness accompanied by weakness several times a week. Usually is happening in the morning, but can happen during the day. Occurs when she initially gets out of bed, or if she has been sitting or kneeling for a long time. - with these episodes, she has checked her blood pressure, and it ranges from 87/59- 100/79 mmHg. - the episodes will persist for several hours and then gradually dissipate. -she has not lost consciousness or blacked out with any of these times. - she continues to have some intermittent palpitations, but these are less, and definitely do not occur in relation to her symptoms. - since last visit, she had an echocardiogram and an event monitor. - echocardiogram showed normal LVEF, no valvular abnormalities, and normal diastolic function - the event monitor report is pending -she reports she is drinking 60-70 oz of fluid daily. This includes water and coffee. - she does report that she has a new job since her last visit, now working at a daycare center. The conditions are better, with less heat and humidity, and much less physically strenuous work. A review of systems was negative except for the following: General: fatigue Psychiatric: Occasional anxiety due to stress at work. Exam BP 90/62 (BP Site: Left Arm, BP Postition: Sitting) Pulse 76 Temp 37.3 C (99.2 F) (Oral) Resp 18 Ht 152.4 cm (5') Wt 48.6 kg (107 lb 3.2 oz) SpO2 99% BMI 20.94 kg/m Physical Exam Vitals reviewed. Constitutional: General: She is not in acute distress. Appearance: She is well-developed and normal weight. She is not toxic-appearing. HENT: Head: Normocephalic. Right Ear: External ear normal. Left Ear: External ear normal. Nose: No rhinorrhea. Mouth/Throat: Mouth: Mucous membranes are moist. Eyes: General: No scleral icterus. Neck: Vascular: No carotid bruit. Cardiovascular: Rate and Rhythm: Normal rate and regular rhythm. Pulses: Normal pulses. Heart sounds: No murmur heard. No gallop. Comments: See orthostatic blood pressures Pulmonary: Effort: Pulmonary effort is normal. Breath sounds: No wheezing or rales. Abdominal: Palpations: Abdomen is soft. Musculoskeletal: Right lower leg: No edema. Left lower leg: No edema. Lymphadenopathy: Cervical: No cervical adenopathy. Skin: General: Skin is warm and dry. Coloration: Skin is not jaundiced. Findings: No bruising. Neurological: Mental Status: She is alert and oriented to person, place, and time. Motor: No weakness. Coordination: Coordination normal. Deep Tendon Reflexes: Reflexes are normal and symmetric. Psychiatric: Mood and Affect: Mood normal. Behavior: Behavior normal. Meds No current outpatient medications on file. Lab Results Hospital Outpatient Visit on 06/17/2024 Component Date Value Ref Range Status LVOT stroke volume 06/17/2024 44.49 ml Final LV Diastolic Volume 06/17/2024 80.80 mL Final LV Systolic Volume 06/17/2024 28.80 mL Final EF 06/17/2024 64 % Final FS 06/17/2024 34 28 - 44 % Final LVIDd 06/17/2024 4.10 3.72 - 5.16 cm Final LVIDs 06/17/2024 2.70 2.21 - 3.34 cm Final IVS 06/17/2024 0.70 0.6 - 1.1 cm Final PW 06/17/2024 0.60 0.6 - 1.1 cm Final LVOT diameter 06/17/2024 1.70 cm Final TDI 06/17/2024 16.20 cm/s Final MV TDI E' (medial) 06/17/2024 13.10 cm/s Final LA Volume Index 06/17/2024 23.3 mL/m2 Final E/A ratio 06/17/2024 1.28 Final E wave deceleration time 06/17/2024 201.00 msec Final MV Peak E Willie 06/17/2024 82.70 cm/s Final MV Peak A Willie 06/17/2024 64.70 cm/s Final LA size 06/17/2024 2.60 cm Final Aortic root 06/17/2024 2.40 cm Final LA volume 06/17/2024 33.70 cm3 Final RV diastolic dimension (basal) 06/17/2024 27.0 mm Final TAPSE 06/17/2024 2.03 cm Final AV peak willie 06/17/2024 144.00 cm/s Final LVOT peak willie 06/17/2024 1.00 m/s Final AV VTI 06/17/2024 26.00 cm Final LVOT peak VTI 06/17/2024 19.60 cm Final AV mean gradient 06/17/2024 4.00 mmHg Final AV peak gradient 06/17/2024 8.29 mmHg Final AV valve area 06/17/2024 1.71 cm2 Final Valve area - Index 06/17/2024 1.2 Final MV pressure 1/2 time 06/17/2024 59.00 ms Final MV valve area p 1/2 method 06/17/2024 3.73 cm2 Final TR Peak Willie 06/17/2024 2.0 m/s Final TR peak gradient 06/17/2024 16.00 mmHg Final Inferior Vena Cava Diameter 06/17/2024 0.80 cm Final LV ESV A2C 06/17/2024 37.60 mL Final LV ESV A4C 06/17/2024 28.50 mL Final LV RWT 2D 06/17/2024 29.27 Final Echo EF Estimated 06/17/2024 64 % Final AV Velocity Ratio 06/17/2024 0.75 Final IVC proximal 06/17/2024 8 cm Final Left Ventricle Mass 06/17/2024 74.857905940913757 g Final Interventricular Septum Diastolic * 06/17/2024 7 cm Final EF - 3D Echo 06/17/2024 68 % Final RVID d 06/17/2024 2.7 cm Final TASV 06/17/2024 11.2 cm/s Final RA 2D Volume 06/17/2024 11.8 mL/m2 Final Est. RA pressure 06/17/2024 3 mmHg Final RA area 06/17/2024 8.6 cm2 Final RV Peak Systolic Pressure 06/17/2024 19 mmHg Final ZLVIDS 06/17/2024 -0.05 Final ZLVIDD 06/17/2024 -0.65 Final Energy loss index 06/17/2024 1.91 Final Other Testing No results found. Echocardiogram: Normal LVEF. Normal chamber sizes. No significant valvular abnormalities.. Alexsander Farnsworth DO., [facility] Office: [phone] [facility] History of Presen t illness Narrative IM PROGRESS NOTE Patient - Marilee Mercado Age - 34 y.o. - 1990 ASSESSMENT & PLAN 1. Orthostatic hypotension -does have some minor drops in blood pressure with standing, but no change in pulse -appears to keep herself well hydrated -need to evaluate for other causes. Check echocardiogram and lab work for structural or metabolic causes - Echo complete W/O contrast; Future - Event monitor; Future 2. Palpitations -obtain event monitor as above. Dysrhythmias could be leading to some of her dizziness. - Comprehensive metabolic panel; Future - CBC auto differential; Future - Iron and TIBC; Future - TSH with Reflex; Future - Vitamin B12; Future Subjective 34-year-old female presents for problems with low blood pressure . This problem started with her most recent about 1 year ago. Her blood pressures were running low during the , and she was told at this was just part of being . Blood pressure is generally running 90-100 mmHg systolic at that time. -she had no episodes of passing out or blacking out, but did feel lightheaded and fatigued -she is now nearly 1 year , and continues to have symptoms of lightheadedness, weakness and occasionally palpitations. -she has bought a home blood pressure cuff, and blood pressures 88/50-130/80 mmHg. -she has not actually passed out or blacked out. -she currently works at [employer] on the [employer], and drinks at least 90-100 oz of fluid daily. -other than the low blood pressure during her , no other problems were reported. A review of systems was negative except for the following: General: weight loss ENT: nasal congestion Musculoskeletal: Joint stiffness, that resolves with activity Neurological: No tingling or numbness. No seizure-type activity. No visual changes.. Further recommendations pending results of testing Exam BP 100/64 (BP Site: Left Arm, BP Postition: Sitting) Pulse 93 Temp 36.4 C (97.6 F) (Oral) Resp 18 Ht 152.4 cm (5') Wt 49.9 kg (109 lb 14.4 oz) SpO2 100% BMI 21.46 kg/m Physical Exam Vitals reviewed. Constitutional: General: She is not in acute distress. Appearance: She is well-developed and normal weight. She is not toxic-appearing. HENT: Head: Normocephalic. Right Ear: Tympanic membrane, ear canal and external ear normal. Left Ear: Tympanic membrane, ear canal and external ear normal. Nose: Rhinorrhea present. Eyes: General: No scleral icterus. Extraocular Movements: Extraocular movements intact. Neck: Vascular: No carotid bruit. Cardiovascular: Rate and Rhythm: Normal rate and regular rhythm. Pulses: Normal pulses. Heart sounds: No murmur heard. No gallop. Comments: See orthostatic blood pressures Pulmonary: Effort: Pulmonary effort is normal. Breath sounds: No wheezing or rales. Abdominal: Palpations: Abdomen is soft. Musculoskeletal: Right lower leg: No edema. Left lower leg: No edema. Lymphadenopathy: Cervical: No cervical adenopathy. Skin: General: Skin is warm and dry. Capillary Refill: Capillary refill takes less than 2 seconds. Coloration: Skin is not jaundiced. Findings: No bruising. Neurological: Mental Status: She is alert and oriented to person, place, and time. Sensory: No sensory deficit. Motor: No weakness. Coordination: Coordination normal. Deep Tendon Reflexes: Reflexes are normal and symmetric. Psychiatric: Mood and Affect: Mood normal. Behavior: Behavior normal. Meds No current outpatient medications on file. Lab Results No visits with results within 1 Month(s) from this visit. Latest known visit with results is: Office Visit on 01/25/2024 Component Date Value Ref Range Status External Poct Rapid Strep A 01/25/2024 Negative Negative Final External Poct Influenza A Antigen 01/25/2024 Negative Final External Poct Influenza B Antigen 01/25/2024 Negative Final External POCT SARS COV 2 Veritor 01/25/2024 Presumptive Negative Final Other Testing No results found. Alexsander Farnsworth DO., [facility] Office: [phone] documented in this encounter [facility] 01-25-2024 History of Presen t illness Narrative Subjective Patient ID: Marilee Mercado is a 33 y.o. female. Onset this am with sore throat Then started with nausea and vomiting and headache Her children had similar symptoms this weekend Her children had low grade fever but so far she has not She did try to go to work but had to leave due to stomach pain, nausea, vomiting and headache and extreme dizziness this am She continues to feel very dizzy with her symptoms and does not feel safe returning to work The following portions of the patient's history were reviewed and updated as appropriate: allergies, current medications, past family history, past medical history, past social history, past surgical history, problem list, and medication reconciliation was completed including current medication and post discharge medication. Review of Systems Constitutional: Positive for activity change, appetite change, chills and fatigue. Negative for fever. HENT: Positive for sore throat. Gastrointestinal: Positive for nausea and vomiting. Negative for diarrhea. Endocrine: Negative. Genitourinary: Negative. Musculoskeletal: Positive for myalgias. Neurological: Positive for dizziness and headaches. Hematological: Negative. Psychiatric/Behavioral: Negative. Objective Physical Exam Vitals and nursing note reviewed. HENT: Head: Normocephalic. Right Ear: Tympanic membrane, ear canal and external ear normal. Left Ear: Tympanic membrane, ear canal and external ear normal. Nose: Congestion and rhinorrhea present. Mouth/Throat: Mouth: Mucous membranes are moist. Pharynx: Posterior oropharyngeal erythema (minamal) present. No oropharyngeal exudate. Eyes: Conjunctiva/sclera: Conjunctivae normal. Cardiovascular: Rate and Rhythm: Normal rate and regular rhythm. Heart sounds: Normal heart sounds. No murmur heard. Pulmonary: Effort: Pulmonary effort is normal. No respiratory distress. Breath sounds: Normal breath sounds. Abdominal: General: Abdomen is flat. Bowel sounds are normal. There is no distension. Palpations: Abdomen is soft. Tenderness: There is abdominal tenderness (mild epigastric). There is no guarding or rebound. Musculoskeletal: Cervical back: Neck supple. No tenderness. Right lower leg: No edema. Left lower leg: No edema. Lymphadenopathy: Cervical: No cervical adenopathy. Skin: General: Skin is warm and dry. Capillary Refill: Capillary refill takes less than 2 seconds. Neurological: Mental Status: She is oriented to person, place, and time. Psychiatric: Thought Content: Thought content normal. Judgment: Judgment normal. Assessment/Plan Marilee was seen today for sore throat, vomiting and headache. Diagnoses and all orders for this visit: Pharyngitis, unspecified etiology - POCT rapid strep A Flu-like symptoms - POCT Influenza A/Influenza B/SARS-COV-2 Veritor Gastroenteritis Dizziness Other orders - ondansetron ODT (ZOFRAN ODT) 4 mg disintegrating tablet; Dissolve 1 tablet (4 mg total) on tongue every 8 (eight) hours as needed for nausea or vomiting. Negative for strep, influenza and covid Will treat symptomatically for a viral influenza with fluids, and rest Off of work until headache, dizziness and nausea and vomiting have subsided Zofran for the vomiting so she can hydrate Tylenol for the headache and fluids as well No work 01/24- 01/31 she may return 02/01 RICK Ly 01/25/24 1212 documented in this encounter [facility] 03-05-2023 Note DISCHARGE SUMMARY DISCHARGE DATE: 03/23/2023 PRIMARY DIAGNOSES: 1. Intrauterine at 39 weeks. 2. Chronic anemia. 3. Previous . PROCEDURE: Repeat low transverse section. HOSPITAL COURSE: As expected. Please see chart for full details. LABORATORY DATA: Please see chart. COMPLICATIONS: None. DISCHARGE CONDITION: Stable. CONSULTATION: Anesthesia. DISCHARGE INSTRUCTIONS: 1. Diet: Regular. 2. Medications: a. Percocet 5/325 one to two p.o. every 4-6 hours p.r.n. pain. b. Motrin 800 one p.o. every 8 hours p.r.n. pain. 3. Followup in one week. Restrictions: Pelvic rest for 6 weeks. No heavy lifting. May drive when pain free and no longer on narcotics. [facility] 03-05-2023 Note OPERATIVE NOTE OPERATION DATE: 03/05/2023 PROCEDURE: Repeat low transverse section. PREOPERATIVE DIAGNOSIS: 1. Previous . 2. Intrauterine at 39 weeks. 3. Chronic anemia. POSTOPERATIVE DIAGNOSIS: 1. Previous . 2. Intrauterine at 39 weeks. 3. Chronic anemia. ANESTHESIA: Spinal with Duramorph. SURGEON: Natasha Ramos D.O. DEPLOYMENT SPECIALIST: LANA Garrido URINE OUTPUT: Yellow and clear. BLOOD LOSS: 500 mL. SPECIMEN: Placenta. FINDINGS: Viable female. Apgars and weight unknown at this time. PROCEDURE: Patient was taken back to the Operating Room where she was given a spinal anesthesia with Duramorph without difficulty. She was prepped and draped in the normal sterile fashion. A Pfannenstiel skin incision was then made 2 cm above the symphysis pubis and carried down to underlying rectus fascia using a Bovie. The fascia was incised in the midline and extended laterally using Castillo scissors. Two Heide clamps were placed on the superior aspect of the fascia and dissected off the underlying rectus muscles. The same was performed on the inferior aspect as well. The muscles were then in the midline. Peritoneum was identified and entered bluntly. The peritoneum was then extended superiorly and inferiorly with good visualization of the bladder. The bladder blade was inserted. A low transverse incision was made on the patient's uterus and extended laterally digitally. The was then delivered atraumatically after the bladder blade was removed in the cephalic position. The cord was clamped and cut. Cord blood was obtained. The infant was handed off to awaiting team. The patient's placenta was spontaneously delivered. The uterus was then exteriorized. The uterus was cleared of all clots and debris. The bladder blade was reinserted. The patient's uterine incision was closed using #0 Vicryl in a running lock fashion. Excellent hemostasis was assured. The uterus was then returned to the patient's abdomen. The patient's abdomen was copiously irrigated using warm saline. Peritoneal gutters were cleared of all clots and debris. Again excellent hemostasis was assured. The patient's peritoneum was closed using 3-0 Vicryl in a running fashion. The patient's fascia was closed using #0 Vicryl in a running fashion. The patient's skin was closed using 4-0 Vicryl subcuticularly. The patient tolerated the procedure well. Sponge, lap, and needle counts were correct x2. The patient was taken to the Recovery Room in stable condition. [facility] Evaluation note Diagnosis Missed menses 10 weeks gestation of , unspecified gestational age Encounter for supervision of normal first in first trimester documented in this encounter [facility]* Diagnosis Orthostatic hypotension- Primary Palpitations [facility] Diagnosis Pharyngitis, unspecified etiology- Primary Flu-like symptoms Gastroenteritis Other and unspecified noninfectious gastroenteritis and colitis Dizziness Dizziness and giddiness documented [facility] Diagnosis Orthostatic hypotension- Primary Palpitations [facility] Diagnosis Orthostatic hypotension- Primary Palpitations Benign paroxysmal positional vertigo, unspecified laterality Upper respiratory symptom [facility] filedocumented in this encounter [facility] filedocumented in this encounter [facility] filedocumented in this [facility] Summary Purpose Family History No Family History Records FoundNo Family History Records FoundNo Family History Records FoundNo Family History Records FoundNo Family History Records Found Advance Directives Date Activated Date Inactivated Comments 05/14/2017 1:41 AM 05/16/2017 3:31 PM Latest Code Status on File Code Status Date Activated Date Inactivated Comments Full Code 05/14/2017 1:41 AM 05/16/2017 3:31 PM Date Activated Date Inactivated Comments 05/14/2017 1:41 AM 05/16/2017 3:31 PM Reason for Referral Specialty Diagnoses / Procedures Referred By Sharron sarabia Referred To Contact Diagnoses Orthostatic hypotension Procedures Echo complete W/O contrast Alexsander Farnsworth DO [address] [place] [address] Referral ID Status Reason Start Date Expiration Date V isits Requested Visits Authorized [id number] Pending Review 05/16/2024 05/16/2025 1 1 Additional Source Comments INFORMATION SOURCE (unrecogn ized section and content) DATE CREATED AUTHOR 08/25/2021 [facility] DATE CREATED AUTHOR AUTHOR'S ORGANIZ ATION 04/03/2023 [facility] DATE CREATED AUTHOR AUTHOR'S ORGANIZ ATION 05/19/2024 [facility] DATE CREATED AUTHOR AUTHOR'S ORGANIZ ATION 06/19/2024 [facility] DATE CREATED AUTHOR AUTHOR'S ORGANIZ ATION 08/21/2024 [facility] Reason for Visit (unrecogniz ed section and content) Reason Comments Amenorrhea Reason Comments low bp 86/66 Work medical form Reason Comments Sore Throat Vomiting Headache Pt been sick since.1 day Reason Comments BP/ test results Reason Comments bp, sinus Sore Throat 4 days Care Teams (unrecognized sec tion and content) Mortgage Loan Officer Relationship Specialty Start Date End Date Alexsander Farnsworth MD [address] [place] [address] PCP - General Internal Medicine 04/14/23 Mortgage Loan Officer Relationship Specialty Start Date End Date Alexsander Farnsworth MD [address] [place] [address] PCP - General Internal Medicine 04/14/23 Mortgage Loan Officer Relationship Specialty Start Date End Date Alexsander Farnsworth DO [address] [place] [address] PCP - General Internal Medicine 05/13/17 Mortgage Loan Officer Relationship Specialty Start Date End Date Alexsander Farnsworth DO [address] [place] [address] PCP - General Internal Medicine 05/13/17 Mortgage Loan Officer Relationship Specialty Start Date End Date Alexsander Farnsworth DO [address] [place] [address] PCP - General Internal Medicine 05/13/17 Mortgage Loan Officer Relationship Specialty Start Date End Date Alexsander Farnsworth DO [address] [place] [address] PCP - General Internal Medicine 05/13/17 Mortgage Loan Officer Relationship Specialty Start Date End Date Alexsander Farnsworth DO [address] [place] [address] PCP - General Internal Medicine 05/13/17 FOR RECORDS PERTAINING TO PATIENTS WHO ARE OR HAVE BEEN ENROLLED IN A CHEMICAL DEPENDENCY/SUBSTANCEABUSE PROGRAM, SOME INFORMATION MAY BE OMITTED. This clinical summary was aggregated from multiple sources. Caution should be exercised in using it in the provision of clinical care. This summary normalizes information from multiple sources, and as a consequence, information in this document may materially change the coding, format and clinical context of patient data. In addition, data may be omitted in some cases. CLINICAL DECISIONS SHOULD BE BASED ON THE PRIMARY CLINICAL RECORDS. [employer] [facility]. provides no warranty or guarantee of the accuracy or completeness of information in this document.
[2024-12-18 11:48] VITALS: BP 111/79; PULSE 99; TEMP 36.8; O2SAT 100; BMI 21.5
[2024-12-18 12:19] LABS: Basophils Percent Auto 0.5 % (0.2-2.0); Eosinophils Absolute Auto 0.2 10^3/uL (0.0-0.7); Eosinophils Percent Auto 2.6 % (0.9-7.0); Hematocrit 36.5 % (36.0-48.0); Hemoglobin 11.6 g/dL (12.0-16.0); Immature Granulocytes Abs Auto 0.01 10^3/uL (0.00-0.03); Immature Granulocytes Pct Auto 0.2 % (0.0-0.5); Lymphocytes Absolute Auto 1.6 10^3/uL (1.2-3.8); Mean Corpuscular HGB Conc 31.8 g/dL (29.9-35.2); Mean Corpuscular Hemoglobin 28.4 pg (26.7-34.0); Mean Corpuscular Volume 89.5 fL (81.0-99.0); Mean Platelet Volume 9.1 fL (9.5-13.5); Monocytes Absolute Auto 0.8 10^3/uL (0.3-0.8); Monocytes Percent Auto 12.5 % (1.7-12.0); Neutrophils Percent Auto 60.2 % (43.0-75.0); Platelet Count 340 10^3/uL (150-450); Red Blood Count 4.08 10^6/uL (4.20-5.40); Red Cell Distribution Width 11.9 % (11.0-15.0); White Blood Count 6.6 10^3/uL (4.0-11.0)
[2024-12-18 12:46] LABS: Alanine Aminotransferase 20 U/L (14-59); Albumin Globulin Ratio 0.9; Albumin Level 3.6 g/dL (3.4-5.0); Alkaline Phosphatase 95 U/L (46-116); Anion Gap 12.4; Aspartate Amino Transferase 16 U/L (15-37); BUN Creatinine Ratio 12.8; Bilirubin Total 0.2 mg/dL (0.2-1.0); Calcium 9.3 mg/dL (8.5-10.1); Carbon Dioxide 25.5 mmol/L (21.0-32.0); Chloride 105 mmol/L (98-107); Estimated GFR (African America >60 (>=60 mL/min/1.73m^2); Estimated GFR (Non-African Ame >60 (>=60 mL/min/1.73m^2); Glucose 92 mg/dL (74-106); Potassium 3.9 mmol/L (3.5-5.1); Sodium 139 mmol/L (136-145); Total Protein 7.6 g/dL (6.4-8.2)
[2024-12-18 13:13] LABS: HCG Quantitative 3772 mIU/mL
--- NOTE | 2024-12-18 13:40 | ED_ITS ---
HPI - General Chief complaint: Vaginal Bleeding Stated complaint: 14 WEEKS , VAGINAL BLEEDING SINCE THIS MOR Time Seen by Provider: 12/18/24 11:47 Source: patient Mode of arrival: walk-in Limitations: no limitations History of Present Illness HPI Narrative: cc = vaginal bleeding Pt 14wks and on antibiotics for UTI prescribed last week from Dr Ramos's office. She now presents with vaginal spotting - blood in underwear and on toilet tissue - that occurred overnight. She had dating US in Rachel's office in late October but not US since and none at the hospital. She admits to some left sided abdominal cramping. No fever or vomiting. Related Data Home Medications ?Medication ?Instructions ?Recorded ?Confirmed cephalexin 500 mg capsule 500 mg PO TID 12/18/24 12/18/24 Allergies Allergy/AdvReac Type Severity Reaction Status Date / Time No Known Drug Allergies Allergy Verified 12/18/24 11:47 PFSH PFSH Social History Little interest or pleasure in doing things: not at all Feeling down, depressed, or hopeless: not at all Exam Narrative Exam Narrative: Nurses notes and vital signs reviewed and patient is not hypoxic. afebrile General: Well-appearing and in no apparent distress. Skin: Warm, dry, no pallor noted. No rash. Eye: Pupils are equal, round and EOMI. No scleral icterus. Ears, Nose, Mouth, and Throat: Oral mucosa is moist Cardiovascular: Regular Rate and Rhythm without murmur, gallop or rub. Respiratory: No accessory muscle use or respiratory distress. Lungs are clear to auscultation, no wheezing, rales or rhonchi Musculoskeletal: normal ROM, no calf or popliteal tenderness, no lower extremity edema/swelling GI: Abdomen is soft, non-distended. Normal bowel sounds. No focal tenderness to palpation. No rebound, guarding, or rigidity noted. Neurological: A&O x4. No cranial nerve dysfunction observed. No truncal ataxia. Moves all extremities. Sensation intact. Psychiatric: Cooperative and interactive. Normal mood and affect. Constitutional Vital Signs, click to edit/add: Last Vital Signs Temp 98.3 F 12/18/24 11:48 Pulse 99 H 12/18/24 11:48 Resp 20 12/18/24 11:48 BP 111/79 12/18/24 11:48 Pulse Ox 100 12/18/24 11:48 O2 Del Method Room Air 12/18/24 11:48 Course Vital Signs Vital signs: Vital Signs Temperature 98.3 F 12/18/24 11:48 Pulse Rate 99 H 12/18/24 11:48 Respiratory Rate 20 12/18/24 11:48 Blood Pressure 111/79 12/18/24 11:48 Pulse Oximetry 100 12/18/24 11:48 Oxygen Delivery Method Room Air 12/18/24 11:48 Temperature 98.3 F 12/18/24 11:48 Pulse Rate 99 H 12/18/24 11:48 Respiratory Rate 20 12/18/24 11:48 Blood Pressure 111/79 12/18/24 11:48 Pulse Oximetry 100 12/18/24 11:48 Oxygen Delivery Method Room Air 12/18/24 11:48 MDM - OB/Uterine Contractions MDM Narrative Medical decision making narrative: CBC and CMP unremarkable. hCG quant 3772. ultrasound reveals a 10-week 3-day fetus with no yolk sac and cord inserts starting to form. No bleeding is noted but there are also no heart tones. This concerning for miscarriage. I spoke with Dr. Rucker, the architectural practice manager on-call, and discussed this patient's case. She recommended the patient be discharged home with outpatient follow-up with Dr. Ramos-the patient has an appointment scheduled for tomorrow. Reasons to return included bleeding at or in excess of 1 pad per hour, worsening cramping or worrisome symptoms such as syncope or chest pain or shortness of breath. Patient consoled with at bedside. Lab Data Attestation: I reviewed the patient's lab results. Labs: Lab Results 12/18/24 Range/Units 12:07 WBC 6.6 (4.0-11.0) 10^3/uL RBC 4.08 L (4.20-5.40) 10^6/uL Hgb 11.6 L (12.0-16.0) g/dL Hct 36.5 (36.0-48.0) % MCV 89.5 (81.0-99.0) fL MCH 28.4 (26.7-34.0) pg MCHC 31.8 (29.9-35.2) g/dL RDW 11.9 (11.0-15.0) % Plt Count 340 (150-450) 10^3/uL MPV 9.1 L (9.5-13.5) fL Neut % (Auto) 60.2 (43.0-75.0) % Lymph % (Auto) 24.0 (20.5-60.0) % Lumpkin % (Auto) 12.5 H (1.7-12.0) % Eos % (Auto) 2.6 (0.9-7.0) % Baso % (Auto) 0.5 (0.2-2.0) % Neut # (Auto) 4.0 (1.4-6.5) 10^3/uL Lymph # (Auto) 1.6 (1.2-3.8) 10^3/uL Lumpkin # (Auto) 0.8 (0.3-0.8) 10^3/uL Eos # (Auto) 0.2 (0.0-0.7) 10^3/uL Baso # (Auto) 0.0 (0.0-0.1) 10^3/uL Abs Immat Gran (auto) 0.01 (0.00-0.03) 10^3/uL Imm/Tot Granulo (auto) 0.2 (0.0-0.5) % Sodium 139 (136-145) mmol/L Potassium 3.9 (3.5-5.1) mmol/L Chloride 105 (98-107) mmol/L Carbon Dioxide 25.5 (21.0-32.0) mmol/L Anion Gap 12.4 BUN 11.0 (7.0-18.0) mg/dL Creatinine 0.86 (0.55-1.02) mg/dL Est GFR ( Amer) >60 (>=60 mL/min/1.73m^2) Est GFR (Non-Af Amer) >60 (>=60 mL/min/1.73m^2) BUN/Creatinine Ratio 12.8 Glucose 92 (74-106) mg/dL Calcium 9.3 (8.5-10.1) mg/dL Total Bilirubin 0.2 (0.2-1.0) mg/dL AST 16 (15-37) U/L ALT 20 (14-59) U/L Alkaline Phosphatase 95 (46-116) U/L Total Protein 7.6 (6.4-8.2) g/dL Albumin 3.6 (3.4-5.0) g/dL Globulin 4.0 g/dL Albumin/Globulin Ratio 0.9 HCG, Quant 3772 mIU/mL Discharge Plan Discharge Chief Complaint: Vaginal Bleeding Clinical Impression: Missed Patient Disposition: Home, Self-Care Time of Disposition Decision: 13:43 Prescriptions / Home Meds: No Action cephalexin 500 mg capsule 500 mg PO TID Print Language: Hungarian Instructions: Miscarriage (ED) Referrals: ALEXSANDER FARNSWORTH [Primary Care Provider] - 1 week
[2024-12-18 13:50] VITALS: BP 132/92; PULSE 77; TEMP 37; O2SAT 100
[2024-12-18 14:28] LABS: Bilirubin Urine NEGATIVE (NEGATIVE); Blood Urine LARGE (NEGATIVE); Clarity Urine CLEAR (CLEAR); Color Urine LT. YELLOW (YELLOW); Glucose Urine UA NEGATIVE (NEGATIVE); Ketones Urine NEGATIVE (NEGATIVE); Leukocyte Esterase Urine LARGE (NEGATIVE); Nitrite Urine NEGATIVE (NEGATIVE); Protein Urine NEGATIVE (NEG/TRACE); Specific Gravity Urine <=1.005 (1.005-1.025); Urobilinogen Urine 0.2 EU/dL (0.2-1.0); pH Urine 6.5 (5.0-9.0)
[2024-12-18 14:40] LABS: Bacteria Urine MODERATE #/HPF (NONE SEEN); Cast Seen? NONE SEEN #/LPF (NONE SEEN); Crystals Seen? None Seen #/HPF (None Seen); Mucus Urine TRACE (NONE SEEN); RBC Urine 0-2 #/HPF (0-2); Squamous Epithelial Cell Urine MANY #/LPF (NONE/RARE); Transitional Epi Cells Urine RARE #/LPF (NONE SEEN); Urine Culture Indicated YES-FRMC; WBC Urine 20-50 #/HPF (NONE SEEN)
== END 2024-12-18 13:53 | disposition home or self-care (01) ==
PROVIDERS: Emergency Provider Emergency Medicine; PCP Internal Medicine
DX: O02.1 Missed abortion (principal); O20.8 Other hemorrhage in early pregnancy; R10.32 Left lower quadrant pain
CPT/HCPCS: 36415; 76801; 80053; 81001; 84702; 85025; 87086; 87150; 87186; 99284

== ENCOUNTER 2024-12-20 10:53 | Outpatient (OUT) | payer OTHER, SELFPAY ==
--- OUTSIDE RECORDS SUMMARY | 2024-12-20 11:11 | XMS_ITS | CCD ---
Author Organization [facility] Care Team Providers Care Nursing Service Director Name Role Phone ALISA ., UMA Attending Unavailable YUHAS, DR BELTRE Primary Care Unavailable ALISA ., UMA Admitting Unavailable ZIEBER, DR AP Witt Consulting Unavailable ALISA ., UMA Consulting Unavailable YUPIETRO, DR BELTRE Primary Care Unavailable RACHEL ., DR KAUR Attending Unavailable RACHEL ., DR KAUR Admitting Unavailable RACHEL ., DR KAUR Admitting Unavailable RACHEL ., DR KAUR Consulting Unavailable MIS, DR PERKINS Primary Care Unavailable RACHEL ., DR KAUR Attending Unavailable RACHEL ., DR KAUR Admitting Unavailable MISC, DR PERKINS Primary Care Unavailable RACHEL ., DR KAUR Consulting Unavailable RACHEL ., DR KAUR Attending Unavailable ZIEBER, DR AP Witt Consulting Unavailable RACHEL ., DR KAUR Consulting [...] Unavailable RACHEL ., DR KAUR Attending Unavailable SIGNAL MOUNTAIN, DR REINA Holly Consulting Unavailable RACHEL ., DR KAUR Consulting Unavailable RACHEL ., DR KAUR Admitting Unavailable RACHEL ., DR KAUR Consulting Unavailable DAJA, DR BELTRE Primary Care Unavailable RACHEL ., DR KAUR Attending Unavailable RACHEL ., DR KAUR Consulting Unavailable YUHAS, DR BELTRE Primary Care Unavailable RACHEL ., DR KAUR Attending Unavailable RACHEL ., DR KAUR Admitting Unavailable SHAYNE UGALDE Consulting Unavailable RACHEL ., DR KAUR Procedure Practitioner Unavail able CRISTY RODRIGUEZ Consulting Unavailable DAJA, DR BELTRE Primary Care Unavailable ROGELIO ., CRISSY Attending Unavailable ARI ., BEBE KABA Consulting Unavailkatarina MERCADO ., CRISSY Admitting Unavailable ALLEN ., J CARLOS Consulting Unavailable ALLEN ., J CARLOS Attending Unavailable ALLEN ., J CARLOS Admitting Unavailable [facility] DR PERKINS Primary Care Unavailable YUHAS, ALEXSANDER Garber Referring Unavailable YUHAS, ALEXSANDER Garber Primary Care Unavailable YUHAS, ALEXSANDER Garber Attending Unavailable YUHAS, ALEXSANDER Garber Referring Unavailable YUHAS, ALEXSANDER Garber Primary Care Unavailable YUHAS, ALEXSANDER Garber Attending Unavailable YUHAS, ALEXSANDER Garber Referring Unavailable YUHAS, ALEXSANDER Garber Primary Care Unavailable KUNKIRA Joseph Attending Unavailable YUHAS, ALEXSANDER Garber Referring Unavailable YUHAS, ALEXSANDER Garber Primary Care Unavailable YUHAS, ALEXSANDER Garber Attending Unavailable YUHAS, ALEXSANDER Garber Referring Unavailable YUHAS, ALEXSANDER Garber Primary Care Unavailable YUHAS, ALEXSANDER Garber Attending Unavailable YUHAS, ALEXSANDER Garber Referring Unavailable YUHAS, ALEXSANDER Garber Primary Care Unavailable YUHAS, ALEXSANDER Garber Attending Unavailable YUHAS, ALEXSANDER Garber Referring Unavailable YUHAS, ALEXSANDER Garber Primary Care Unavailable Yuhas Alexsander RICE Primary Care Provider Alexsander Farnsworth DO Primary Care Provider Ellis Mckeon DO Attending Provider NATASHA RAMOS Attending Unavailable Medications Current Medications Medication Drug Class(es) Dates Sig (Normalized) Sig (Original) cephalexin 500 mg oral capsule (1 source) Cephalosporin Antibacterial Start: 12-12-2024 End: 12-19-2024 take 1 capsule by mouth in the morning, then take 1 capsule by mouth in the evening, then take 1 capsule by mouth at bedtime cephalexin (Keflex) 500 MG capsule Indications: E coli infection Take 1 capsule (500 mg) by mouth in the morning and 1 capsule (500 mg) in the evening and 1 capsule (500 mg) before bedtime. Do all this for 7 days. 21 capsule 12/12/2024 12/19/2024 Active norethindrone 0.35 mg oral tablet (1 source) Start: 04-14-2023 End: 11-18-2024 take 1 tablet by mouth in the morning norethindrone (Micronor) 0.35 MG tablet Indications: control counseling Take 1 tablet (0.35 mg) by mouth in the morning. 28 tablet 11 04/14/2023 11/18/2024 Discontinued (Therapy completed) Vit-Fe Fumarate-FA ( Vitamin) 27-0.8 MG tablet (3 sources) Vit-Fe Fumarate-FA ( Vitamin) 27-0.8 MG [...] 08-09-2022 Chronic Other aftercare (1 source) Other correction (current) drug therapy; Translations: [OTH SHELTER CURRENT DRUG THERAPY] Onset: 03-11-2023 Episodic Other [...] WITH AUTO DIFFon BASOPHILS ABSOLUTE AUTO 0 [facility] Basophils/100 WBC (Bld) 0.2 % 0.2 - 2.0 % [facility] Eosinophils/100 WBC (Bld) 1.5 % 0.9 - 7.0 % [facility] Erythrocyte distribution width (RBC) [Ratio] 11.9 % 11.0 - 15.0 % [facility] Hematocrit (Bld) [Volume fraction] 33.9 % Low 36.0 - 48.0 % [facility] Hemoglobin (Bld) [Mass/Vol] 11.2 g/dL Low 12.0 - 16.0 g/dL [facility] IMMATURE GRANULOCYTES ABS AUTO 0.03 [facility] Immature granulocytes/100 WBC (Bld) 0.3 % 0.0 - 0.5 % [facility] Interpretation and review of laboratory results Abnormal [facility] LYMPHOCYTES ABSOLUTE AUTO 1.9 [facility] Lymphocytes/100 WBC (Bld) 21.3 % 20.5 - 60.0 % [facility] MCH (RBC) [Entitic mass] 29.4 pg 26.7 - 34.0 pg [facility] MCHC (RBC) [Mass/Vol] 33 g/dL 29.9 - 35.2 g/dL [facility] MCV (RBC) [Entitic vol] 89 fL 81.0 - 99.0 fL [facility] MONOCYTES ABSOLUTE AUTO 0.8 [facility] Monocytes/100 WBC (Bld) 8.7 % 1.7 - 12.0 % [facility] NEUTROPHILS ABSOLUTE AUTO 5.9 [facility] Neutrophils/100 WBC (Bld) 68 % 43.0 - 75.0 % [facility] Platelet mean volume (Bld) [Entitic vol] 9.4 fL Low 9.5 - 13.5 [facility]L [facility] # [facility].1 [facility] PLT 355 [facility] e TB RBC 3.81 Low [facility] WBC 8.7 [facility] HCG ( test) Ql (U)o n 11-18-2024 Interpretation and review of laboratory results Abnormal [facility] Preg Test, Ur Positive Negative [facility] US OB TRANSVAGINALon 025 US OB TRANSVAGINAL TITLE OF EXAM: OB Ultrasound: REASON FOR EXAM: Confirm dates. COMPARISON: None. TECHNIQUE: Grayscale and M-mode Doppler imaging is performed. FINDINGS: Measurements: heart rate: 177 bpm Sac: 4.0 cm CRL: 3.1 cm GA for sonogram: 10.0 wk (09.2-10.8) Cervix Length: 4.1 cm GEORGE: 06/16/2025 Anatomy Observed: Gestational Sac: Visualized Yolk Sac: Visualized Pole: Visualized Cardiac Activity: Visualized 177 bpm Uterus: Normal Uterine Position: Anteverted, anteflexed Right Ovary: 3.0 x 1.9 x 2.7 cm Volume: 7.9 cc Normal Left Ovary: 2.6 x 1.7 x 1.8 cm Volume: 4.1 cc Normal Cervical Length: 4.1 cm Closed IMPRESSION: Single viable intrauterine gestation with an estimated ultrasound age of 10 weeks 0 days. Dictated and transcribed 11/18/24/dpd This report has been electronically signed and approved by the interpreting radiologist. Normal Not Available Comment on above: Order Comment: US OB TRANSVAGINAL No LMP recorded. Urinalysis macro (dipstick) panel (U)on 11-18-2024 Bilirubin, UA Negative Negative - 4(70) +++ mg/dL [facility] Blood, UA Positive Negative - 50 Otoniel/mcL [facility] Comment on above: trace Clarity, UA Cloudy [facility] re Color, UA Yellow [facility] e Glucose, UA Negative Negative - 1999(110) ++++ mg/dL [facility] Interpretation and review of laboratory results Abnormal [facility] Ketones, UA Negative Negative - 160(16) ++++ mg/dL [facility] Leukocytes, UA Moderate Negative - 500+++ Forest/mcL [facility] Nitrite, UA Negative Negative - Positive [facility] pH, UA 6.5 5 - 9 [facility] e Protein, UA Positive Negative - 1999(20) ++++ mg/dL [facility] Comment on above: 100 Spec Grav, UA 1.02 1 - 1.03 [facility] Urobilinogen, UA 0.2 0.2 - 12 mg/dL [facility] POCT Influenza A/Influenza B /SARS-COV-2 Veritoron 08-19-2024 External Poct Influenza A Antigen Negative [facility] External Poct Influenza B Antigen Negative [facility] SARS-CoV-2 (COVID-19) Ag IA.rapid Ql (Resp) Negative [facility] POCT rapid strep Aon 024 S. pyogenes Ag IA Ql (Unsp spec) Negative Negative [facility] CBC AND AUTO DIFFon 05-16-20 24 ABSOLUTE BASOPHIL 0.0 X10E9/L Normal 0.0-0.2 [facility] Comment on above: Performed By: #### C BCA, CMP, FEPR, TSHR, 2132-06 #### [facility] ([id number]) [address], [address] [place] [address] ABSOLUTE NEUTROPHIL 7.0 X10E9/L High 1.5-6.6 [facility] Comment on above: Performed By: #### C BCA, CMP, FEPR, TSHR, 2132-06 #### [facility] ([id number]) [address], [facility] [address] [place] [address] Basophils/100 WBC (Bld) 0.3 % Normal [facility] Comment on above: Performed By: #### C BCA, CMP, FEPR, TSHR, 2132-06 #### [facility] ([id number]) [address], [address] [place] [address] Eosinophils (Bld) [#/Vol] 0.1 10*3/uL Normal 0.0-0.4 [facility] Comment on above: Performed By: #### C BCA, CMP, FEPR, TSHR, 2132-06 #### [facility] ([id number]) [address], [address] [place] [address] Eosinophils/100 WBC (Bld) 1.4 % Normal [facility] Comment on above: Performed By: #### C BCA, CMP, FEPR, TSHR, 2132-06 #### [facility] ([id number]) [address], [address] [place] [address] Erythrocyte distribution width (RBC) [Ratio] 13.3 % Normal 11.5-15.0 [facility] Comment on above: Performed By: #### C BCA, CMP, FEPR, TSHR, 2132-06 #### [facility] ([id number]) [address], [address] [place] [address] Hematocrit (Bld) [Volume fraction] 38.8 % Normal 35-47 [facility] Comment on above: Performed By: #### C BCA, CMP, FEPR, TSHR, 2132-06 #### [facility] ([id number]) [address] [address] [place] [address] Hemoglobin (Bld) [Mass/Vol] 13.0 g/dL Normal 11.7-15.5 [facility] Comment on above: Performed By: #### C BCA, CMP, FEPR, TSHR, 2132-06 #### [facility] ([id number]) [address] [address] Lymphocytes (Bld) [#/Vol] 2.4 10*3/uL Normal 1.0-3.5 [facility] Comment on above: Performed By: #### C BCA, CMP, FEPR, TSHR, 2132-06 #### [facility] ([id number]) [address] [address] Lymphocytes/100 WBC (Bld) 23.1 % Normal [facility] Comment on above: Performed By: #### C BCA, CMP, FEPR, TSHR, 2132-06 #### [facility] ([id number]) [address], [facility] [address] [place] [address] MCH (RBC) [Entitic mass] 30.0 pg Normal 27-34 [facility] Comment on above: Performed By: #### C BCA, CMP, FEPR, TSHR, 2132-06 #### [facility] ([id number]) [address] [address] [place] [address] MCHC (RBC) [Mass/Vol] 33.5 g/dL Normal 32-36 [facility] Comment on above: Performed By: #### C BCA, CMP, FEPR, TSHR, 2132-06 #### [facility] ([id number]) [address], [address] [place] [address] MCV (RBC) [Entitic vol] 90 fL Normal 80-100 [facility] Comment on above: Performed By: #### C BCA, CMP, FEPR, TSHR, 2132-06 #### [facility] ([id number]) [address], [address] [place] [address] Monocytes (Bld) [#/Vol] 0.7 10*3/uL Normal 0-0.9 [facility] Comment on above: Performed By: #### C BCA, CMP, FEPR, TSHR, 2132-06 #### [facility] ([id number]) [address], [facility] [address] [place] [address] Monocytes/100 WBC (Bld) 7.0 % Normal [facility] Comment on above: Performed By: #### C BCA, CMP, FEPR, TSHR, 2132-06 #### [facility] ([id number]) [address], [facility] [address] [place] [address] Neutrophils/100 WBC (Bld) 68.2 % Normal [facility] Comment on above: Performed By: #### C BCA, CMP, FEPR, TSHR, 2132-06 #### [facility] ([id number]) [address], [address] [place] [address] Platelet mean volume (Bld) [Entitic vol] 8.3 fL Normal 7-12 [facility] Comment on above: Performed By: #### C BCA, CMP, FEPR, TSHR, 2132-06 #### [facility] ([id number]) [address], [address] [place] [address] Platelets (Bld) [#/Vol] 348 10*3/uL Normal 150-450 [facility] Comment on above: Performed By: #### C BCA, CMP, FEPR, TSHR, 2132-06 #### [facility] ([id number]) [address], [address] [place] [address] RBC COUNT 4.33 X10E12/L Normal 3.80-5.20 [facility] Comment on above: Performed By: #### C BCA, CMP, FEPR, TSHR, 2132-06 #### [facility] ([id number]) [address], [address] [place] [address] WBC (Bld) [#/Vol] 10.2 10*3/uL Normal 4.0-11.0 [facility] Comment on above: Performed By: #### C BCA, CMP, FEPR, TSHR, 2132-06 #### [facility] ([id number]) [address], [address] [place] [address] COMPREHENSIVE METABOLIC PANE Julio C 05-16-2024 Albumin [Mass/Vol] 4.7 g/dL Normal 3.2-5.3 [facility] Comment on above: Performed By: #### C BCA, CMP, FEPR, TSHR, 2132-06 #### [facility] ([id number]) [address], [address] [place] [address] ALP [Catalytic activity/Vol] 94 U/L Normal 39-130 [facility] Comment on above: Performed By: #### C BCA, CMP, FEPR, TSHR, 2132-06 #### [facility] ([id number]) [address], [address] [place] [address] ALT [Catalytic activity/Vol] 16 U/L Normal 0-31 [facility] Comment on above: Performed By: #### C BCA, CMP, FEPR, TSHR, 2132-06 #### [facility] ([id number]) [address], [address] [place] [address] Anion gap [Moles/Vol] 9 mmol/L Normal 5-15 [facility] Comment on above: Performed By: #### C BCA, CMP, FEPR, TSHR, 2132-06 #### [facility] ([id number]) [address], [address] [place] [address] AST [Catalytic activity/Vol] 23 U/L Normal 0-41 [facility] Comment on above: Performed By: #### C BCA, CMP, FEPR, TSHR, 2132-06 #### [facility] ([id number]) [address], [address] [place] [address] Bilirubin [Mass/Vol] 0.2 mg/dL Low 0.3-1.2 [facility] Comment on above: Performed By: #### C BCA, CMP, FEPR, TSHR, 2132-06 #### [facility] ([id number]) [address], [address] [place] [address] Calcium [Mass/Vol] 9.8 mg/dL Normal 8.5-10.5 [facility] Comment on above: Performed By: #### C BCA, CMP, FEPR, TSHR, 2132-06 #### [facility] ([id number]) [address], [address] [place] [address] Chloride [Moles/Vol] 103 mmol/L Normal 98-109 [facility] Comment on above: Performed By: #### C BCA, CMP, FEPR, TSHR, 2132-06 #### [facility] ([id number]) [address], [address] [place] [address] CO2 [Moles/Vol] 27 mmol/L Normal 22-32 [facility] Comment on above: Performed By: #### C BCA, CMP, FEPR, TSHR, 2132-06 #### [facility] ([id number]) [address], [address] [place] [address] Creatinine [Mass/Vol] 0.74 mg/dL Normal 0.40-1.00 [facility] Comment on above: Result Comment: METH OD TRACEABLE TO IDMS STANDARD Performed By: #### C BCA, CMP, FEPR, TSHR, 2132-06 #### [facility] ([id number]) [address], [address] [place] [address] eGFR (CKD-EPI) NON-RACE DEPENDENT >90 Normal >59 [facility] Comment on above: Result Comment: Reported eGFR is based on the CKD-EPI 2020 equation that does not use a race coefficient. Performed By: #### C BCA, CMP, FEPR, TSHR, 2132-06 #### [facility] ([id number]) [address], [facility] [address] [place] [address] Glucose [Mass/Vol] 84 mg/dL Normal 65-99 [facility] Comment on above: Performed By: #### C BCA, CMP, FEPR, TSHR, 2132-06 #### [facility] ([id number]) [address] [place] [address] Potassium [Moles/Vol] 4.0 mmol/L Normal 3.5-5.0 [facility] Comment on above: Performed By: #### C BCA, CMP, FEPR, TSHR, 2132-06 #### [facility] ([id number]) [address], [address] [place] [address] Protein [Mass/Vol] 7.7 g/dL Normal 6.0-8.0 [facility] Comment on above: Performed By: #### C BCA, CMP, FEPR, TSHR, 2132-06 #### [facility] ([id number]) [address] [address] [place] [address] Sodium [Moles/Vol] 139 mmol/L Normal 134-146 [facility] Comment on above: Performed By: #### C BCA, CMP, FEPR, TSHR, 2132-06 #### [facility] ([id number]) [address], [address] [place] [address] Urea nitrogen [Mass/Vol] 16 mg/dL Normal 5-23 [facility] Comment on above: Performed By: #### C BCA, CMP, FEPR, TSHR, 2132-06 #### [facility] ([id number]) [address], [address] [place] [address] IRON PROFILEon 05-16-2024 Iron [Mass/Vol] 88 ug/dL Normal 50-170 [facility] Comment on above: Performed By: #### C BCA, CMP, FEPR, TSHR, 2132-06 #### [facility] ([id number]) [address], [address] [place] [address] IRON BINDING 505 ug/dL High 250-425 [facility] Comment on above: Performed By: #### C BCA, CMP, FEPR, TSHR, 2132-06 #### [facility] ([id number]) [address], [address] [place] [address] IRON SATURATION 17 % SATURATION Normal 15-50 [facility] Comment on above: Performed By: #### C BCA, CMP, FEPR, TSHR, 2132-06 #### [facility] ([id number]) [address], [address] [place] [address] TSH WITH REFLEXon 05-16-2024 TSH 2.05 uIU/mL Normal 0.49-4.67 [facility] Comment on above: Performed By: #### C BCA, CMP, FEPR, TSHR, 2132-06 #### [facility] ([id number]) [address], [address] [place] [address] VITAMIN B12on 05-16-2024 Cobalamin (Vitamin B12) [Mass/Vol] 334 pg/mL Normal 180-914 [facility] Comment on above: Performed By: #### C BCA, CMP, FEPR, TSHR, 2132-06 #### [facility] ([id number]) [address], [address] [place] [address] POCT Influenza A/Influenza B /SARS-COV-2 Veritoron 01-25-2024 External Poct Influenza A Antigen Negative [facility] External Poct Influenza B Antigen Negative [facility] SARS-CoV-2 (COVID-19) Ag IA.rapid Ql (Resp) Negative [facility] POCT rapid strep Aon 024 S. pyogenes Ag IA Ql (Unsp spec) Negative Negative [facility] PRBC LEUKOREDUCEDon 03-08-20 ABO and Rh group Nom (Bld) Cross Match Result Compatible Unit Blood Type A Pos Unit Number [id number] Status Information Released Specimen Exp Date [id number] Product ID Red Blood Cells Product Code [id number] Cross Match Result Compatible Unit Blood Type A Pos Unit Number [id number] Status Information Issued Product ID Red Blood Cells Product Code [id number] Issue Date/Time [id number] [facility] Comment on above: Performed By: #### P RBC #### [facility] [address] [place] [address] Dr. Paula Hernandez CULTURE URINEon 03-07-2023 CULTURE [...] F Trimethoprim/Sulfamet hoxazole <=20 S F Normal [facility] Comment on above: Performed By: #### U RCX #### [facility] [address] [place] [address] Dr. Paula Hernandez PRBC LEUKOREDUCEDon 03-07-20 ABO and Rh group Nom (Bld) Cross Match Result Compatible Unit Blood Type A Pos Unit Number [id number] Status Information Released Specimen Exp Date [id number] Product ID Red Blood Cells Product Code [id number] Normal [facility] Comment on above: Performed By: #### P RBC #### [facility] [address] [address] [address] Paula Hernandez CBC AUTO DIFFon 03-06-2023 BASO # 0.0 103/ul Normal 0.0-0.1 [facility] Comment on above: Performed By: #### C BC ####[facility] [address] [address]Dr[address] Paula Hernandez Basophils/100 WBC (Bld) 0.2 % Normal 0.2-2.0 [facility] Comment on above: Performed By: #### C BC ####[facility] [address] [place], [place] [address]Dr. Paula Hernandez EO # 0.1 103/ul Normal 0.0-0.7 [facility] Comment on above: Performed By: #### C BC ####[facility] [address] [place], [place] [address]Dr. Paula Hernandez Eosinophils/100 WBC (Bld) 0.4 % Critically low 0.9-7.0 [facility] Comment on above: Performed By: #### C BC ####[facility] [address] [place], [place] [address]Dr. Paula Hernandez Erythrocyte distribution width (RBC) [Ratio] 13.9 % Normal 11.0-15.0 [facility] Comment on above: Performed By: #### C BC ####[facility] [address] [place], [place] [address]Dr. Paula Hernandez Hematocrit (Bld) [Volume fraction] 21.1 % Critically low 36.0-48.0 [facility] Comment on above: Performed By: #### C BC ####[facility] [address] [place], [place] [address]DrKiara Hernandez Hemoglobin (Bld) [Mass/Vol] 6.5 g/dL Critically low 12.0-16.0 [facility] Comment on above: Performed By: #### C BC ####[facility] [address] [address]DrKiara Hernandez IG # 0.22 10e3/ul Critically high 0.00-0.03 [facility] Comment on above: Performed By: #### C BC ####[facility] [address] [address]DrKiara Hernandez IG % 1.2 % Critically high 0.0-0.5 [facility] Comment on above: Performed By: #### C BC ####[facility] [address] [address]DrKiara Hernandez LYMPH # 2.7 103/ul Normal 1.2-3.8 [facility] Comment on above: Performed By: #### C BC ####[facility] [address] [address]DrKiara Hernandez Lymphocytes/100 WBC (Bld) 14.2 % Critically low 20.5-60.0 [facility] Comment on above: Performed By: #### C BC ####[facility] [address] [place] [address]DrKiara Hernandez MANUAL DIFF REQ NO Normal [facility] Comment on above: Performed By: #### C BC ####[facility] [address] [place] [address]DrKiara Hernandez MCH (RBC) [Entitic mass] 26.2 pg Critically low 26.7-34.0 [facility] Comment on above: Performed By: #### C BC ####[facility] [address] [address]DrKiara Hernandez MCHC (RBC) [Mass/Vol] 30.8 g/dL Normal 29.9-35.2 [facility] Comment on above: Performed By: #### C BC ####[facility] [address] [place] [address]DrKiara Hernandez MCV (RBC) [Entitic vol] 85.1 fL Normal 81.0-99.0 [facility] Comment on above: Performed By: #### C BC ####[facility] [address] [place] [address]DrKiara Hernandez MONO # 1.4 103/ul Critically high 0.3-0.8 [facility] Comment on above: Performed By: #### C BC ####[facility] [address] [place] [address]DrKiara Hernandez Monocytes/100 WBC (Bld) 7.3 % Normal 1.7-12.0 [facility] Comment on above: Performed By: #### C BC ####[facility] [address] [place] [address]DrKiara Hernandez NEUT # 14.5 103/ul Critically high 1.4-6.5 [facility] Comment on above: Performed By: #### C BC ####[facility] [address] [place], [place] [address]DrKiara Hernandez Neutrophils/100 WBC (Bld) 76.7 % Critically high 43.0-75.0 [facility] Comment on above: Performed By: #### C BC ####[facility] [address]crepy[address] [place], [place] [address]DrKiara Hernandez Platelet mean volume (Bld) [Entitic vol] 9.5 fL Normal 9.5-13.5 [facility] Comment on above: Performed By: #### C BC ####[facility] [address]pgjss[address] [place] [address]Dr. Paula Hernandez PLT 378 103/ul Normal 150-450 [facility] Comment on above: Performed By: #### C BC ####[facility] Gotfbkcxsx8436 [place] [id number] Hernandez RBC 2.48 106/ul Critically low 4.20-5.40 [facility] Comment on above: Performed By: #### C BC ####[facility] Tyvqxerlrf0622 [place] [id number] Hernandez WBC 19.0 103/ul Critically high 4.0-11.0 [facility] Comment on above: Performed By: #### C BC ####[facility] Uqphahykrt[address] [place] [address]Dr. Paula David CBC AUTO DIFFon 03-05-2023 BASO # 0.0 103/ul Normal 0.0-0.1 [facility] Comment on above: Performed By: #### C BC ####[facility] Lsvlhntrbt12[address] [place] [address]Dr. Paula Hernandez Basophils/100 WBC (Bld) 0.4 % Normal 0.2-2.0 [facility] Comment on above: Performed By: #### C BC ####[facility] Gwanhaqugc[address] [place], [place] [address]Dr. Paula Hernandez EO # 0.1 103/ul Normal 0.0-0.7 [facility] Comment on above: Performed By: #### C BC ####[facility] Uebrrmduqb46[address] [place], [place] [address]Dr. Paula Hernandez Eosinophils/100 WBC (Bld) 1.3 % Normal 0.9-7.0 [facility] Comment on above: Performed By: #### C BC ####[facility] Hwyadnkhbu[address] [place], [place] [address]Dr. Paula Hernandez Erythrocyte distribution width (RBC) [Ratio] 14.2 % Normal 11.0-15.0 [facility] Comment on above: Performed By: #### C BC ####[facility] Pwgdrzkilv[address] [place], [place] [address]Dr. Paula Hernandez Hematocrit (Bld) [Volume fraction] 24.8 % Critically low 36.0-48.0 [facility] Comment on above: Performed By: #### C BC ####[facility] Ywfvegnqcr[address] [place], [place] [address]Dr. Paula Hernandez Hemoglobin (Bld) [Mass/Vol] 7.7 g/dL Critically low 12.0-16.0 [facility] Comment on above: Performed By: #### C BC ####[facility] Vzayadyipw[address] [place], [place] [address]DrKiara Paula Hernandez IG # 0.08 10e3/ul Critically high 0.00-0.03 [facility] Comment on above: Performed By: #### C BC ####[facility] Xczmsifhaq7[address] [place] [address]DrKiara Paula Hernandez IG % 0.8 % Critically high 0.0-0.5 [facility] Comment on above: Performed By: #### C BC ####[facility] Govuslqthe48[address] [place] [address]DrKiara Paula David LYMPH # 1.9 103/ul Normal 1.2-3.8 [facility] Comment on above: Performed By: #### C BC ####[facility] Ijbpetudbc[address] [place], [place] [address]DrKiara Paula David Lymphocytes/100 WBC (Bld) 18.1 % Critically low 20.5-60.0 [facility] Comment on above: Performed By: #### C BC ####[facility] Hbhfaeixkz[address] [place], [place] [address]DrKiara Paula David MANUAL DIFF REQ NO Normal [facility] Comment on above: Performed By: #### C BC ####[facility] Hwcx[address]msy[address] [place], [place] [address]DrKiara Paula Hernandez MCH (RBC) [Entitic mass] 26.3 pg Critically low 26.7-34.0 [facility] Comment on above: Performed By: #### C BC ####[facility] Dvfhakjtec[address] [place], [place] [address]DrKiara Paula David MCHC (RBC) [Mass/Vol] 31.0 g/dL Normal 29.9-35.2 [facility] Comment on above: Performed By: #### C BC ####[facility] Vqdyjmgmlr[address] [place], [place] [address]DrKiara Paula David MCV (RBC) [Entitic vol] 84.6 fL Normal 81.0-99.0 [facility] Comment on above: Performed By: #### C BC ####[facility] Mkieyqwzvz[address] [place], [place] [address]Dr. Paula Hernandez MONO # 1.2 103/ul Critically high 0.3-0.8 [facility] Comment on above: Performed By: #### C BC ####[facility] W[address]urfhcbg5[address] [place] [address]Dr. Paula Hernandez Monocytes/100 WBC (Bld) 11.7 % Normal 1.7-12.0 [facility] Comment on above: Performed By: #### C BC ####[facility] Ikbdqnaxkl6081 [place] [address]Dr. Paula Hernandez NEUT # 7.0 103/ul Critically high 1.4-6.5 [facility] Comment on above: Performed By: #### C BC ####[facility] Qrfogxvwpz3470 [place] [address]Dr. Paula Hernandez Neutrophils/100 WBC (Bld) 67.7 % Normal 43.0-75.0 [facility] Comment on above: Performed By: #### C BC ####[facility] Ec[address]zvrjfqa[address] [place], [place] [address]Dr. Paula Hernandez Platelet mean volume (Bld) [Entitic vol] 9.5 fL Normal 9.5-13.5 [facility] Comment on above: Performed By: #### C BC ####[facility] Gqhohqeykj[address] [place] [address]Dr. Paula Hernandez PLT 427 103/ul Normal 150-450 [facility] Comment on above: Performed By: #### C BC ####[facility] Rkxymlfmyc11[address] [place] [address]Dr. Paula Hernandez RBC 2.93 106/ul Critically low 4.20-5.40 [facility] Comment on above: Performed By: #### C BC ####[facility] Njaizmiiiz[address] [place], [place] [address]Dr. Paula Hernandez WBC 10.3 103/ul Normal 4.0-11.0 [facility] Comment on above: Performed By: #### C BC ####[facility] Luvlgwgobz[address] [place] [address]Dr. Paula Hernandez DRUG SCREEN RAPID (URINE)on 03-05-2023 AMP Negative Normal NEGATIVE [facility] Comment on above: Performed By: #### D RUGRPD ####[facility] Frfpbbzsxj7[address] [place] [address]Dr. Yolandafrance Hernandez BAR Negative Normal NEGATIVE [facility] Comment on above: Performed By: #### D RUGRPD ####[facility] Phncwstysr[address] [place] [address]Dr. Paula Hernandez BUP Negative Normal NEGATIVE [facility] Comment on above: Performed By: #### D RUGRPD ####[facility] Jancapskux[address] [place], [place] [address]Dr. Yolandafrance Hernandez BZO Negative Normal NEGATIVE [facility] Comment on above: Performed By: #### D RUGRPD ####[facility] Owymnwtvug[address] [place], [place] [address]Dr. Paula Hernandez SHAHID Negative Normal NEGATIVE [facility] Comment on above: Performed By: #### D RUGRPD ####[facility] Zgpaq[address]izh[address] [place], [place] [address]Dr. Paula Hernandez CUT-OFFS SEE BELOW Normal [facility] Comment on above: Result Comment: [...] 300 ng/mL Performed By: #### D RUGRPD ####[facility] Mxfoujbqzg[address] [place], [place] [address]Dr. Paula Hernandez DRUG CUT HEADER DRUG CLASS TEST SYSTEM CUT-OFF CONCENTRATIONS ARE FOLLOWS: Normal [facility] Comment on above: Performed By: #### D RUGRPD ####[facility] [address]rmdolb[address] [place] [id number]. Paula Hernandez mAMP Negative Normal NEGATIVE [facility] Comment on above: Performed By: #### D RUGRPD ####[facility] Ksstbdatms[address] [place] [id number]. Paula Hernandez MTD Negative Normal NEGATIVE [facility] Comment on above: Performed By: #### D RUGRPD ####[facility] Pscyzcjxph79[address] [place] [id number]. Paula Hernandez OPI Negative Normal NEGATIVE [facility] Comment on above: Performed By: #### D RUGRPD ####[facility] [address]rv[address]ckzuaw[address] [place] [address]Dr. Paula Hernandez OXY Negative Normal NEGATIVE [facility] Comment on above: Performed By: #### D RUGRPD ####[facility] C[address]hiueyicb[address] [place] [address]Dr. Paula Hernandez PCP Negative Normal NEGATIVE [facility] Comment on above: Performed By: #### D RUGRPD ####[facility] [address]qfltstx[address] [place] [address]Dr. Paula Hernandez PPX Negative Normal NEGATIVE [facility] Comment on above: Performed By: #### D RUGRPD ####[facility] Aofzadbfgx[address] [place] [address]Dr. Paula Hernandez TCA Negative Normal NEGATIVE [facility] Comment on above: Performed By: #### D RUGRPD ####[facility] K[address]qveenuz[address] [place] [address]Dr. Paula Hernandez THC Negative Normal NEGATIVE [facility] Comment on above: Performed By: #### D RUGRPD ####[facility] [address]vadhcg[address] [place] [address]Dr. Paula Hernandez PRBC LEUKOREDUCEDon 03-05-20 23 ABO and Rh group Nom (Bld) Cross Match Result Compatible Unit Blood Type A Neg Unit Number [id number] Status Information Released Specimen Exp Date [id number] Product ID Red Blood Cells Product Code [id number] Cross Match Result Compatible Unit Blood Type A Pos Unit Number [id number] Status Information Released Specimen Exp Date [id number] Product ID Red Blood Cells Product Code [id number] Normal [facility] Comment on above: Performed By: #### P RBC #### [facility] [address] [place] [address] Dr. Paula Hernandez TYPE AND SCREENon 03-05-2023 TYPE AND SCREEN Negative Normal [facility] Comment on above: Performed By: #### T NS ####[facility] Nkpjfhiehi[address] [place] [address]Dr. Paula Hernandez UA (CLEAN/CATCH) THORACIC MEDICINE SPECIALIST/MICRO I F IND.on 03-05-2023 Bilirubin Ql (U) Negative Normal NEGATIVE [facility] Comment on above: Performed By: #### U RCX #### [facility] [address] [place] [address] Dr. Paula Hernandez Clarity (U) CLEAR Normal CLEAR [facility] Comment on above: Performed By: #### U RCX #### [facility] [address] [place] [address] Dr. Paula Hernandez Color (U) LT. YELLOW Normal YELLOW [facility] Comment on above: Performed By: #### U RCX #### [facility] [address] [place] [address] Dr. Paula Hernandez Glucose Ql (U) Negative Normal NEGATIVE [facility] Comment on above: Performed By: #### U RCX #### [facility] [address] [place] [address] Dr. Paula Hernandez Hemoglobin Ql (U) Negative Normal NEGATIVE [facility] Comment on above: Performed By: #### U RCX #### [facility] [address] [place] [address] Dr. Paula Hernandez Ketones Ql (U) Negative Normal NEGATIVE [facility] Comment on above: Performed By: #### U RCX #### [facility] [address] [place] [address] Dr. Paula Hernandez LEUKOCYTES LARGE Abnormal NEGATIVE [facility] Comment on above: Performed By: #### U RCX #### [facility] [address] [place] [address] Dr. Paula Hernandez Nitrite Ql (U) Positive Abnormal NEGATIVE [facility] Comment on above: Performed By: #### U RCX #### [facility] [address] [place] [address] Dr. Paula Hernandez pH (U) 7.0 [pH] Normal 5-9 [facility] Comment on above: Performed By: #### U RCX #### [facility] [address] [place] [address] Dr. Paula Hernandez SPEC GRAVITY 1.010 Normal 1.005-<=1.025 [facility] Comment on above: Performed By: #### U RCX #### [facility] [address] [place] [address] Dr. Paula Hernandez UA PROTEIN Negative Normal NEGATIVE/ TRACE [facility] Comment on above: Performed By: #### U RCX #### [facility] [address] [place] [address] Dr. Paula Hernandez UR MICRO IND INDICATED Normal [facility] Comment on above: Performed By: #### U RCX #### [facility] [address] [place] [address] Dr. Paula Hernandez Urobilinogen Qn (U) 0.2 {Alisia'U}/dL Normal 0.2 - 1. 0 [facility] Comment on above: Performed By: #### U RCX #### [facility] [address] [place] [address] Dr. Paula Hernandez URINE MICROSCOPIC ONLYon BACTERIA MODERATE Abnormal NONE SEEN [facility] Comment on above: Performed By: #### U RCX #### [facility] [address] [place] [address] Dr. Paula Hernandez Bacteria identified Cx Nom (U) INDICATED Normal [facility] Comment on above: Performed By: #### U RCX #### [facility] [address] [place] [address] Dr. Paula Hernandez CAST NONE SEEN Normal NONE SEEN [facility] Comment on above: Performed By: #### U RCX #### [facility] [address] [place] [address] [address] Paula Hernandez Crystals LM Nom (Urine sed) NONE SEEN Normal NONE SEEN [facility] Comment on above: Performed By: #### U RCX #### [facility] [address] [place] [address] Dr. Puala Hernandez Epithelial cells LM Ql (Urine sed) FEW Abnormal NONE SEEN /RARE [facility] Comment on above: Performed By: #### U RCX #### [facility] [address] [place] [address] Dr. Paula Hernandez MUCOUS NONE SEEN Normal NONE SEEN [facility] Comment on above: Performed By: #### U RCX #### [facility] [address] [place] [address] Dr. Paula Hernandez RBC 0-2 Normal 0-2 [facility] Comment on above: Performed By: #### U RCX #### [facility] [address] [place] [address] Dr. Paula Hernandez WBC 50-75 Abnormal NONE SEEN [facility] Comment on above: Performed By: #### U RCX #### [facility] [address] [place] [address] Dr. Paula Hernandez GROUP B STREP CULTUREon 01-24 S. agalactiae Ag Ql (Unsp spec) Culture Observations: NEGATIVE FOR GROUP B STREPTOCOCCUS. Normal [facility] Comment on above: Performed By: #### U RCX #### [facility] [address] [place] [address] Dr. Paula Hernandez GLUCOSE - 1HRon 12-17-2022 Glucose [Mass/Vol] 132 mg/dL Critically high 74-106 [facility] Comment on above: Performed By: #### U RCX #### [facility] [address] [place] [address] Dr. Paula Hernandez US PREG GROWTHon 12-17-2022 [...] by: AP CASTILLO Date: 2022-12-17 15:11 Normal [facility] CULTURE URINEon 12-11-2022 CULTURE URINE Isolate 1 [...] Trimethoprim/Sulfamet hoxazole <=20 S F Normal [facility] Comment on above: Performed By: #### U RCX ####[facility] [address] [place] [address]Dr. Paula Hernandez CBC AUTO DIFFon 12-09-2022 BASO # 0.0 103/ul Normal 0.0-0.1 [facility] Comment on above: Performed By: #### U RCX #### [facility] [address] [place] [address] [address] Paula Hernandez Basophils/100 WBC (Bld) 0.2 % Normal 0.2-2.0 [facility] Comment on above: Performed By: #### U RCX #### [facility] [address] [place] [address] [address] Paula Hernandez EO # 0.2 103/ul Normal 0.0-0.7 [facility] Comment on above: Performed By: #### U RCX #### [facility] [address] [place] [address] Dr. Paula Hernandez Eosinophils/100 WBC (Bld) 1.7 % Normal 0.9-7.0 [facility] Comment on above: Performed By: #### U RCX #### [facility] [address] [place] [address] Dr. Paula Hernandez Erythrocyte distribution width (RBC) [Ratio] 12.9 % Normal 11.0-15.0 [facility] Comment on above: Performed By: #### U RCX #### [facility] [address] [place] [address] Dr. Paula Hernandez Hematocrit (Bld) [Volume fraction] 26.4 % Critically low 36.0-48.0 [facility] Comment on above: Performed By: #### U RCX #### [facility] [address] [place] [address] Dr. Paula Hernandez Hemoglobin (Bld) [Mass/Vol] 8.9 g/dL Critically low 12.0-16.0 [facility] Comment on above: Performed By: #### U RCX #### [facility] [address] [place] [address] Dr. Paula Hernandez IG # 0.11 10e3/ul Critically high 0.00-0.[address] [facility] Comment on above: Performed By: #### U RCX #### [facility] [address] [place] [address] Dr. Paula Hernandez IG % 0.9 % Critically high 0.0-0.5 [facility] Comment on above: Performed By: #### U RCX #### [facility] [address] [place] [address] Dr. Paula Hernandez LYMPH # 1.6 103/ul Normal 1.2-3.8 [facility] Comment on above: Performed By: #### U RCX #### [facility] [address] [address] [address] Paula Hernandez Lymphocytes/100 WBC (Bld) 13.0 % Critically low 20.5-60.0 [facility] Comment on above: Performed By: #### U RCX #### [facility] [address] [place] [address] [address] Paula Hernandez MANUAL DIFF REQ NO Normal [facility] Comment on above: Performed By: #### U RCX #### [facility] [address] [place] [address] [address] Paula Hernandez MCH (RBC) [Entitic mass] 30.6 pg Normal 26.7-34.0 [facility] Comment on above: Performed By: #### U RCX #### [facility] [address] [place] [address] Dr. Paula Hernandez MCHC (RBC) [Mass/Vol] 33.7 g/dL Normal 29.9-35.2 [facility] Comment on above: Performed By: #### U RCX #### [facility] [address] [place] [address] Dr. Paula Hernandez MCV (RBC) [Entitic vol] 90.7 fL Normal 81.0-99.0 [facility] Comment on above: Performed By: #### U RCX #### [facility] [address] [place] [address] Dr. Paula Hernandez MONO # 0.7 103/ul Normal 0.3-0.8 [facility] Comment on above: Performed By: #### U RCX #### [facility] [address] [place] [address] Dr. Paula Hernandez Monocytes/100 WBC (Bld) 5.5 % Normal 1.7-12.0 [facility] Comment on above: Performed By: #### U RCX #### [facility] [address] [place] [address] Dr. Paula Hernandez NEUT # 9.5 103/ul Critically high 1.4-6.5 [facility] Comment on above: Performed By: #### U RCX #### [facility] [address] [address] [address] Paula Hernandez Neutrophils/100 WBC (Bld) 78.7 % Critically high 43.0-75.0 [facility] Comment on above: Performed By: #### U RCX #### [facility] [address] [address] [address] Paula Hernandez Platelet mean volume (Bld) [Entitic vol] 9.4 fL Critically low 9.5-13.5 [facility] Comment on above: Performed By: #### U RCX #### [facility] [address] [place] [address] [address] Paula Hernandez PLT 332 103/ul Normal 150-450 [facility] Comment on above: Performed By: #### U RCX #### [facility] [address] [place] [address] [address] Paula Hernandez RBC 2.91 106/ul Critically low 4.20-5.40 [facility] Comment on above: Performed By: #### U RCX #### [facility] [address] [place] [address] [address] Paula Hernandez WBC 12.1 103/ul Critically high 4.0-11.0 [facility] Comment on above: Performed By: #### U RCX #### [facility] [address] [place] [address] [address] Paula Hernandez ER URINE PROFILEon 3 Bilirubin Ql (U) Negative Normal NEGATIVE [facility] Comment on above: Performed By: #### U MICRO, ERUR ####[facility] [address] [place] [address]DrKiara Hernandez Clarity (U) CLEAR Normal CLEAR [facility] Comment on above: Performed By: #### U MICRO, ERUR ####[facility] Q[address] [place] [address]DrKiara Hernandez Color (U) LT. YELLOW Normal YELLOW [facility] Comment on above: Performed By: #### U MICRO, ERUR ####[facility] [address] [place] [address]Dr. Paula FARRAR A micrscopic examination will be performed if indicated. Normal [facility] Comment on above: Performed By: #### U MICRO, ERUR ####[facility] [address]roic[address] [place] [address]Dr. Paula David Glucose Ql (U) Negative Normal NEGATIVE [facility] Comment on above: Performed By: #### U MICRO, ERUR ####[facility] [address]ojtp[address] [place] [address]Dr. Paula Hernandez Hemoglobin Ql (U) Negative Normal NEGATIVE [facility] Comment on above: Performed By: #### U MICRO, ERUR ####[facility] [address] [place], [place] [address]Dr. Paula Hernandez Ketones Ql (U) Negative Normal NEGATIVE [facility] Comment on above: Performed By: #### U MICRO, ERUR ####[facility] [address] [place], [place] [address]Dr. Paula Hernandez LEUKOCYTES LARGE Abnormal NEGATIVE [facility] Comment on above: Performed By: #### U MICRO, ERUR ####[facility] [address] [place], [place] [address]Dr. Paula Hernandez Nitrite Ql (U) Positive Abnormal NEGATIVE [facility] Comment on above: Performed By: #### U MICRO, ERUR ####[facility] [address] [place], [place] [address]Dr. Paula Hernandez pH (U) 6.0 [pH] Normal 5-9 [facility] Comment on above: Performed By: #### U MICRO, ERUR ####[facility] [address] [place] [address]Dr. Paula Hernandez SPEC GRAVITY 1.010 Normal 1.005-<=1.025 [facility] Comment on above: Performed By: #### U MICRO, ERUR ####[facility] [address] [place] [address]Dr. Paula Hernandez UA PROTEIN Negative Normal NEGATIVE/ TRACE [facility] Comment on above: Performed By: #### U MICRO, ERUR ####[facility] [address] [place] [address]Dr. Paula Hernandez UR MICRO IND INDICATED Normal [facility] Comment on above: Performed By: #### U MICRO, ERUR ####[facility] [address]rirpfqc[address] [place] [address]Dr. Paula Hernandez Urobilinogen Qn (U) 0.2 {Alisia'U}/dL Normal 0.2 - 1. 0 [facility] Comment on above: Performed By: #### U MICRO, ERUR ####[facility] [address] [place] [address]Dr. Paula Hernandez PROF CHEM 8 (BAS METB)on Anion gap [Moles/Vol] 12.5 mmol/L Normal [facility] Comment on above: Performed By: #### B MP ####[facility] [place] [facility] Aytfuwitll[address] [place], [place] [address]Dr. Paula Hernandez Calcium [Mass/Vol] 8.4 mg/dL Critically low 8.5-10.1 [facility] Comment on above: Performed By: #### B MP ####[facility] [place] [facility] Frpzegvioz[address] [place], [place] [address]Dr. Paula Hernandez Chloride [Moles/Vol] 100 mmol/L Normal 98-107 [facility] Comment on above: Performed By: #### B MP ####[facility] [place] [facility] Orvarxuqui[address] [place], [place] [address]Dr. Paula Hernandez CO2 [Moles/Vol] 24.8 mmol/L Normal 21.0-32.0 [facility] [place] Comment on above: Performed By: #### B MP ####[facility] [place] [facility] Gduamahbnn[address] [place], [place] [address]Dr. Paula Hernandez Creatinine [Mass/Vol] 0.58 mg/dL Normal 0.55-1.02 [facility] [place] [facility] Comment on above: Performed By: #### B MP ####[facility] [place] [facility] Vhoczghpfu5[address] [place], [place] [address]Dr. Paula Hernandez EGFR-AF [place]LANDER >60 Normal >=60 [facility] [place] Comment on above: Performed By: #### B MP ####[facility] [place] [facility] [address] [place] [id number]. Paula Hernandez EGFR-NON AF [place] >60 Normal >=60 [facility] Comment on above: Performed By: #### B MP ####[facility] [place] [facility] Appbzftpgc4[address] [place] [id number]. Paula Hernandez Glucose [Mass/Vol] 106 mg/dL Normal 74-106 [facility] Comment on above: Performed By: #### B MP ####[facility] [place] [facility] Pjlwnatkdy[address] [place] [id number]. Paula Hernandez Potassium [Moles/Vol] 3.3 mmol/L Critically low 3.5-5.1 [facility] Comment on above: Performed By: #### B MP ####[facility] [place] [facility] [address]ubm[address] [place] [address]Dr. Paula Hernandez Sodium [Moles/Vol] 134 mmol/L Critically low 136-145 [facility] Comment on above: Performed By: #### B MP ####[facility] [place] [facility] Rjoflzsrcr[address] [place] [id number]. Paula Hernandez Urea nitrogen [Mass/Vol] 7.0 mg/dL Normal 7.0-18.0 [facility] Comment on above: Performed By: #### B MP ####[facility] [place] [facility] Lmzsqpumtq[address] [place] [address]Dr. Paula Hernandez Urea nitrogen/Creatinine [Mass ratio] 12.1 mg/mg Normal [facility] Comment on above: Performed By: #### B MP ####[facility] [place] [facility] Ghepxqcqmx[address] [place] [id number]. Paula Hernandez URINE MICROSCOPIC ONLYon BACTERIA LARGE Abnormal NONE SEEN [facility] [place] [facility] Comment on above: Performed By: #### U RCX #### [facility] [place] [facility] [address] [place] [address] Dr. Paula Hernandez Bacteria identified Cx Nom (U) INDICATED Normal [facility] Comment on above: Performed By: #### U RCX #### [facility] [place] [facility] [address] [address] [address] Paula Hernandez CAST NONE SEEN Normal NONE SEEN [facility] Comment on above: Performed By: #### U RCX #### [facility] [place] [facility] [address] [address] [address] Paula Hernandez Crystals LM Nom (Urine sed) NONE SEEN Normal NONE SEEN [facility] Comment on above: Performed By: #### U RCX #### [facility] [place] [facility] [address] [address] [address] Paula Hernandez Epithelial cells LM Ql (Urine sed) FEW Abnormal NONE SEEN /RARE [facility] [place] [facility] Comment on above: Performed By: #### U RCX #### [facility] [place] [facility] [address] [place] [address] Dr. Paula Hernandez MUCOUS NONE SEEN Normal NONE SEEN [facility] Comment on above: Performed By: #### U RCX #### [facility] [place] [facility] [address] [place] [address] Dr. Paula Hernandez RBC NONE SEEN Abnormal 0-2 [facility] Comment on above: Performed By: #### U RCX #### [facility] [place] [facility] [address] [place] [address] Dr. Paula Hernandez WBC 10-20 Abnormal NONE SEEN [facility] Comment on above: Performed By: #### U RCX #### [facility] [place] [facility] [address] [place] [address] Dr. Paula Hernandez PAP ACOG PANEL 2: 30 to 65on 12-02-2022 . . Normal [facility] [place] [facility] Comment on above: Result Comment: Perf ormed at: WB Performed By: #### 4 [id number] ####[facility] [place] [facility] [address] [place] [address]Dr. Paula Hernandez Age Gdln ACOG Testing 30-65 Normal [facility] Comment on above: Performed By: #### 4 [id number] ####[facility] [place] [facility] [address] [place] [address]Dr. Paula Hernandez DIAGNOSIS: Comment Normal [facility] Comment on above: Result Comment: NEGA TIVE FOR INTRAEPITHELIAL LESION OR MALIGNANCY. Performed at: WB Performed By: #### 4 [id number] ####[facility] [place] [facility] [address] [place] [id number]. Paula Hernandez HPV Aptima Negative Normal Negative [facility] Comment on above: Result Comment: This nucleic acid amplification test detects fourteen high-risk HPV types (16,18,31,33,35,39,45,51,52,56,58,59,66,68) without differentiation. Performed at: =G Performed By: #### 4 [id number] ####[facility] [place] [facility] L[address]pm[address] [place] [id number]. Paula Hernandez HPV Genotype Reflex Comment Normal [facility] Comment on above: Result Comment: Crit eria not met, HPV Genotype not performed. Performed at: WB Performed By: #### 4 [id number] ####[facility] [place] [facility] E[address]lqtjzvs[address] [place], [place] [address]Dr. Paula Hernandez Methodology: Comment Normal [facility] Comment on above: Result Comment: This liquid based ThinPrep(R) pap test was screened with the use of an image guided system. Performed at: WB Performed By: #### 4 [id number] ####[facility] [place] [facility] [address] [place], [place] [id number]. Paula Hernandez Note: Comment Normal [facility] Comment on above: Result Comment: The Pap smear is a screening test designed to aid in the detection of premalignant and malignant conditions of the uterine cervix. It is not a diagnostic procedure and should not be used as the sole means of detecting cervical cancer. Both false-positive and false-negative reports do occur. . Performed at: WB Performed By: #### 4 [id number] ####[facility] [place] [facility] [address]odc[address] [place] [id number] Hernandez Performed by: Comment Normal [facility] Comment on above: Result Comment: Uma Tom, Hyperion Analyst (ASCP) Performed at: WB Performed By: #### 4 [id number] ####[facility] [place] [facility] N[address]ttcrm[address] [place] [id number] Hernandez Specimen adequacy: Comment Normal [facility] Comment on above: Result Comment: Sati sfactory for evaluation. No endocervical component is identified. Performed at: WB Performed By: #### 4 [id number] ####[facility] [place] [facility] Igzds[address]icv[address] [place] [phone]. Paula Hernandez CHLAMYDIA/GONOCOCCUS YAS (SW AB/URINE/PAPon 11-29-2022 Chlamydia trachomatis, YAS Negative Normal Negative [facility] Comment on above: Performed By: #### C T/NGNA ####[facility] [place] [facility] Xctwtwdnyl[address] [place] [id number]. Paula Hernandez Neisseria gonorrhoeae, YAS Negative Normal Negative [facility] Comment on above: Performed By: #### C T/NGNA ####[facility] [place] [facility] J[address]ptz[address] [place] [address]Dr. Paula Hernandez VAGINITIS/VAGINOSIS DNA PROB Ketan 11-28-2022 Nirmala species Negative Normal Negative [facility] Comment on above: Performed By: #### V AGINT ####[facility] [place] [facility] [address] [place] [address]Dr. Paula Hernandez Gardnerella vaginalis Positive Abnormal Negative [facility] [place] [facility] Comment on above: Performed By: #### V AGINT ####[facility] [place] [facility] Qbiorjjsqa[address] [place], [place] [address]Dr. [facility] Trichomonas vaginalis Negative Normal Negative [facility] Comment on above: Performed By: #### V AGINT ####[facility] [place] [facility] [address]exnltha[address] [place] [address]Dr. Paula Hernandez US PREG ANATOMY SINGLEon US [...] by: REINA OLGUIN Date: 2022-11-11 16:09 Normal [facility] AFP MATERNAL FOR SPINA BIFID Aon 10-22-2022 AFP MoM Normal [facility] Comment on above: Performed By: #### U RCX #### [facility] [place] [facility] [address] [place] [address] Dr. Paula Hernandez AFP Value TNP [facility] Comment on above: Result Comment: Test not performed Performed By: #### U RCX #### [facility] [place] [facility] [address] [place] [address] Dr. Paula Hernandez AFP, Serum for Spina Bifida Normal [facility] Comment on above: Performed By: #### U RCX #### [facility] [place] [facility] [address] [place] [address] Dr. Paula Hernandez Comment [facility] Comment on above: Performed By: #### U RCX #### [facility] [place] [facility] [address] [place] [address] Dr. Paula Hernandez Gest Age Collection Date [facility] Comment on above: Performed By: #### U RCX #### [facility] [place] [facility] [address] [place] [address] Dr. Paula Hernandez Gestat, Age Based on [facility] Comment on above: Performed By: #### U RCX #### [facility] [place] [facility] [address] [address] [address] Paula Hernandez Insulin Dep Diabetes [facility] Comment on above: Performed By: #### U RCX #### [facility] [place] [facility] [address] [address] [address] Paula Hernandez Interpretation [facility] Comment on above: Performed By: #### U RCX #### [facility] [place] [facility] [address] [address] [address] Paula Hernandez Maternal Age at [facility] Comment on above: Performed By: #### U RCX #### [facility] [place] [facility] [address] [address] [address] Paula Hernandez Multiple Gestation [facility] Comment on above: Performed By: #### U RCX #### [facility] [place] [facility] [address] [address] [address] Paula Hernandez OSBR Risk 1 IN [facility] Comment on above: Performed By: #### U RCX #### [facility] [place] [facility] [address] [address] [address] Paula Hernandez [facility] Comment on above: Performed By: #### U RCX #### [facility] [place] [facility] [address] [address] [address] Paula Hernandez Race [facility] Comment on above: Performed By: #### U RCX #### [facility] [place] [facility] [address] [address] [address] Paula Hernandez Test Results: REFERT [facility] Comment on above: Result Comment: Plea se refer to the following specimen for additional lab results. See:[id number] Performed By: #### U RCX #### [facility] [place] [facility] [address] [address] [address] Paula Hernandez Tracking [facility] Comment on above: Performed By: #### U RCX #### [facility] [place] [facility] [address] [address] [address] Paula Hernandez Weight Normal [facility] Comment on above: Performed By: #### U RCX #### [facility] [place] [facility] [address] [address] [address] aPula Hernandez CULTURE URINEon 10-13-2022 CULTURE URINE Isolate [...] Trimethoprim/Sulfamet hoxazole <=20 S F Normal [facility] [place] [facility] Comment on above: Performed By: #### U RCX #### [facility] [place] [facility] [address] [place] [address] Dr. Paula Hernandez CBC W MANUAL DIFFon 10-11-20 22 ATYPICAL LYMPH # Normal [facility] [place] Comment on above: Performed By: #### C TARAH ####[facility] [place] [facility] [address] [place] [address]Dr. Paula Hernandez ATYPICAL LYMPH % Normal [facility] [place] Comment on above: Performed By: #### C TARAH ####[facility] [place] [facility] [address] [place] [address]Dr. Paula Hernandez BAND # 0.7 103/ul Critically high 0.0-0.3 [facility] Comment on above: Performed By: #### C MARINAMAN ####[facility] [place] [facility] [address] [place] [address]Dr. Paula Hernandez BAND % 4 % Normal 0-5 [facility] [place] [facility] Comment on above: Performed By: #### C BCOBI ####[facility] [place] [facility] [address] [place] [address]DrKiara Hernandez BASOM # 0.00 103/ul Normal 0.00-0.10 [facility] [place] [facility] Comment on above: Performed By: #### C TARAH ####[facility] [place] [facility] [address] [place] [address]Dr. Paula Hernandez BASOM % 0.0 % Critically low 0.2-2.0 [facility] Comment on above: Performed By: #### C BCOBI ####[facility] [place] [facility] [address] [place] [address]Dr. Paula Hernandez BLAST # Normal [facility] Comment on above: Performed By: #### C TARAH ####[facility] [place] [facility] [address]tdgrqumk[address] [place] [address]Dr. Paula Hernandez BLAST % Normal [facility] [place] [facility] Comment on above: Performed By: #### C TARAH ####[facility] [place] [facility] V[address]ibfrosq[address] [place], [place] [address]Dr. Paula Hernandez CORRECTED WBC Normal 4.0-11.0 The [facility] Comment on above: Performed By: #### C TARAH ####[facility] [place] [facility] [address]oz[address] [place], [place] [address]Dr. Paula Hernandez EOS # 0.37 103/ul Normal 0.00-0.70 [facility] [place] [facility] Comment on above: Performed By: #### C TARAH ####[facility] [place] [facility] Itesfxhzll[address] [place], [place] [address]Dr. Paula Hernandez EOS% 2.0 % Normal 0.9-7.0 [facility] [place] [facility] Comment on above: Performed By: #### C TARAH ####[facility] [place] [facility] V[address]qhkronhr[address] [place], [place] [address]Dr. Paula Hernandez HCT 29.8 % Critically low 36.0-48.0 [facility] Comment on above: Performed By: #### C TARAH ####[facility] [place] [facility] [address]mriheixtu[address] [place], [place] [address]Dr. Paula Hernandez HGB 10.1 g/dl Critically low 12.0-16.0 [facility] Comment on above: Performed By: #### C TARAH ####[facility] [place] [facility] Iyr[address]wootiq[address] [place], [place] [address]Dr. Paula Hernandez LYMPHM # 1.85 103/ul Normal 1.20-3.80 [facility] [place] [facility] Comment on above: Performed By: #### C TARAH ####[facility] [place] [facility] Y[address]htccd[address] [place] [id number]. Paula Hernandez LYMPHM% 10.0 % Critically low 20.5-60.0 [facility] Comment on above: Performed By: #### C TARAH ####[facility] [place] [facility] [address]cyvfycu[address] [place] [id number]. Paula Hernandez MCH 29.7 pg Normal 26.7-34.0 [facility] [place] [facility] Comment on above: Performed By: #### C TARAH ####[facility] [place] [facility] Ony[address]epcurw[address] [place] [address]Dr. Paula Hernandez MCHC 33.9 g/dl Normal 29.9-35.2 [facility] [place] [facility] Comment on above: Performed By: #### C TARAH ####[facility] [place] [facility] [address]otjngxol[address] [place] [address]Dr. Paula Hernandez MCV 87.6 fL Normal 81.0-99.0 [facility] [place] [facility] Comment on above: Performed By: #### C TARAH ####[facility] [place] [facility] Cjrcjpsfuh[address] [place], [place] [address]Dr. Paula Hernandez METAMYELOCYTE # Normal [facility] Comment on above: Performed By: #### C TARAH ####[facility] [place] [facility] [address]rwlcitq[address] [place] [address]Dr. Paula Hernandez METAMYELOCYTE % Normal [facility] Comment on above: Performed By: #### C TARAH ####[facility] [place] [facility] [address]ydpulua[address] [place] [id number]. Paula Hernandez MONOM# 3.52 103/ul Critically high 0.30-0.80 [facility] [place] Comment on above: Performed By: #### C TARAH ####[facility] [place] [facility] G[address]paggvsu[address] [place] [id number]. Paula Hernandez MONOM% 19.0 % Critically high 1.7-12.0 [facility] Comment on above: Performed By: #### C TARAH ####[facility] [place] [facility] [address]rt[address]n26[address] [place], [place] [address]Mg. Paula Hernandez MPV 9.3 fL Critically low 9.5-13.5 [facility] Comment on above: Performed By: #### C TARAH ####[facility] [place] [facility] R[address]zqbyr38[address] [place], [place] [address]Kk. Paula Hernandez MYELOCYTE # Normal [facility] [place] [facility] Comment on above: Performed By: #### C TARHA ####[facility] [place] [facility] [address]rgdeqwg[address] [place], [place] [address]We. Paula Hernandez MYELOCYTE % Normal [facility] [place] [facility] Comment on above: Performed By: #### C TARAH ####[facility] [place] [facility] [address]cveuj[address] [place] [id number]. Paula Hernandez NRBC Normal [facility] [place] [facility] Comment on above: Performed By: #### C TARAH ####[facility] [place] [facility] Zqxtsownqc[address] [place] [id number]. Paula Hernandez PLT 330 103/ul Normal 150-450 [facility] [place] [facility] Comment on above: Performed By: #### C TARAH ####[facility] [place] [facility] Maymhuconf[address] [place] [id number]. Paula Hernandez RBC 3.40 106/ul Critically low 4.20-5.40 [facility] Comment on above: Performed By: #### C TARAH ####[facility] [place] [facility] [address]whlevl[address] [place] [address]Dr. Paula Hernandez RDW 12.8 % Normal 11.0-15.0 [facility] [place] [facility] Comment on above: Performed By: #### C TARAH ####[facility] [place] [facility] Zfzywznjbr24[address] [place], [place] [address]Uc. Paula Hernandez SEG # 12.03 103/ul Critically high 1.40-6.50 [facility] Comment on above: Performed By: #### C TARAH ####[facility] [place] [facility] [address]qblsljrw[address] [place] [id number]. Paula Hernandez SEG % 65.0 % Normal 43.0-75.0 [facility] Comment on above: Performed By: #### Nelly RASCON ####[facility] [place] [facility] Xhexzjcpxt75[address] [place], [place] [address]MvKiara Hernandez WBC 18.5 103/ul Critically high 4.0-11.0 [facility] [place] Comment on above: Performed By: #### Nelly RASCON ####[facility] [place] [facility] Ypsujylebt28[address] [place], [place] [address]Of. Paula Hernandez Cov[facility]-19 PCR [facility]on 09-25 SARS-CoV-2 (COVID-19) RNA YAS+probe Ql (Unsp spec) Not detected Normal NOT DETECTED [facility] [place] [facility] Comment on above: Result Comment: This test is not yet approved or cleared by the [place] FDA. When there are no FDA-approved or cleared tests available, and other criteria are met, FDA can make tests available under an emergency access mechanism called an Emergency Use Authorization (EUA). The EUA for this test is supported by the [place] of Health and Human Service's (HHS's) declaration [...] symptoms consistent with SARS-CoV-2. Performed By: #### Nelly [facility] ####[facility] [place] [facility] Vqhmfwbsvu3723 [place], [place] [address]Sk. Paula Hernandez ER URINE PROFILEon 2 Bilirubin Ql (U) Negative Normal NEGATIVE [facility] [place] Comment on above: Performed By: ###VALERIE OTRIZ ####[facility] [place] [facility] Ttdybzhxou37[address] [place], [place] [address]HiKiara Hernandez Clarity (U) SL CLOUDY Abnormal CLEAR [facility] [place] [facility] Comment on above: Performed By: #### VALERIE MADRIGAL ####[facility] [place] [facility] Ktkgsjlscu[address] [place], [place] [address]Dr. Paula Hernandez Color (U) LT. YELLOW Normal YELLOW [facility] Comment on above: Performed By: #### VALERIE MADRIGAL ####[facility] [place] [facility] Mnllenkvji46[address] [place], [place] [address]Dr. Paula Hernandez ERUAHD A micrscopic examination will be performed if indicated. Normal [facility] [place] [facility] Comment on above: Performed By: #### VALERIE MADRIGAL ####[facility] [place] [facility] Fzklvueezh[address] [place], [place] [address]Dr. Paula Hernandez Glucose Ql (U) Negative Normal NEGATIVE [facility] Comment on above: Performed By: #### VALERIE MADRIGAL ####[facility] [place] [facility] Yfrgdnhbtp026[address] [place], [place] [address]Dr. Paula Hernandez Hemoglobin Ql (U) TRACE-INTACT Abnormal NEGATIVE [facility] Comment on above: Performed By: #### VALERIE MADRIGAL ####[facility] [place] [facility] Wduqswxtxh34[address] [place], [place] [address]Dr. Paula Hernandez Ketones Ql (U) 80 mg/dl Abnormal NEGATIVE [facility] Comment on above: Performed By: #### VALERIE MADRIGAL ####[facility] [place] [facility] Uspdwyxtcg16[address] [place], [place] [address]Dr. Paula Hernandez LEUKOCYTES SMALL Abnormal NEGATIVE [facility] Comment on above: Performed By: #### VALERIE MADRIGAL ####[facility] [place] [facility] Ezmcknerhq09[address] [place], [place] [address]Dr. Paula Hernandez Nitrite Ql (U) Positive Abnormal NEGATIVE [facility] Comment on above: Performed By: #### VALERIE MADRIGAL ####[facility] [place] [facility] Jzibzvjesg[address] [place], [place] [address]Dr. Paula Hernandez pH (U) 6.0 [pH] Normal 5-9 [facility] Comment on above: Performed By: #### VALERIE MADRIGAL ####[facility] [place] [facility] Rfhasscrpj[address] [place], [place] [address]Dr. Paula Hernandez Protein (U) [Mass/Vol] 100 mg/dL Abnormal NEGATIVE/ TRACE [facility] [place] [facility] Comment on above: Performed By: #### VALERIE MADRIGAL ####[facility] [place] [facility] Nvxlmifnjw[address] [place], [place] [address]Dr. Paula Hernandez SPEC GRAVITY 1.020 Normal 1.005-<=1.025 [facility] Comment on above: Performed By: #### VALERIE MADRIGAL ####[facility] [place] [facility] Qyldbsmklf[address] [place], [place] [address]Dr. Paula Hernandez UR MICRO IND INDICATED Normal [facility] [place] [facility] Comment on above: Performed By: #### VALERIE MADRIGAL ####[facility] [place] [facility] Dtnoqukmsm93[address] [place], [place] [address]Dr. Paula Hernandez Urobilinogen Qn (U) 0.2 {Alisia'U}/dL Normal 0.2 - 1. 0 [facility] [place] [facility] Comment on above: Performed By: #### VALERIE MADRIGAL ####[facility] [place] [facility] Aotwposelz[address] [place], [place] [address]Dr. Paula Hernandez INFLUENZA A AND B AGon 10-11 INFLUANEGH SEE BELOW Normal [facility] [place] [facility] Comment on above: Result Comment: Nega tive for Flu A protein angiten. Infection due to Flu A cannot be ruled out. Flu A angiten in the sample may be below the detection limit of the test. Performed By: #### I NFLUAB ####[facility] [place] [facility] Izktmjshtp[address] [place], [place] [address]Dr. Paula Hernandez INFLUBNEGH SEE BELOW Normal [facility] [place] [facility] Comment on above: Result Comment: Nega tive for Flu B protein antigen. Infection due to Flu B cannot be ruled out. Flu B antigen in the sample may be below the detection limit of the test. Performed By: #### I NFLUAB ####[facility] [place] [facility] Mwjvrwtoxi[address] [place], [place] [address]Dr. Paula Hernandez INFLUENZA A AG Negative Normal NEGATIVE SEE COMMENT [facility] [place] [facility] Comment on above: Performed By: #### I NFLUAB ####[facility] [place] [facility] Pxyefrnjpj[address] [place], [place] [address]Dr. Paula Hernandez INFLUENZA B AG Negative Normal NEGATIVE SEE COMMENT [facility] [place] [facility] Comment on above: Performed By: #### I NFLUAB ####[facility] [place] [facility] [address]ffxdg[address] [place] [address]Dr. Paula Hernandez INTERNAL CONTROLS Within Normal Limits Normal Wi thin Normal Limits [facility] Comment on above: Performed By: #### I NFLUAB ####[facility] [place] [facility] Y[address]mnhziaqe[address] [place] [id number]. Paula Hernandez PROF 14(COMP METB)on 022 Albumin [Mass/Vol] 2.6 g/dL Critically low 3.4-5.0 Th [facility] [place] [facility] Comment on above: Performed By: #### U RCX #### [facility] [address] [place] [address] Dr. Paula Hernandez Albumin/Globulin [Mass ratio] 0.6 {ratio} Normal [facility] Comment on above: Performed By: #### U RCX #### [facility] [address] [address] [address] Paula Hernandez ALP [Catalytic activity/Vol] 92 U/L Normal 46-116 [facility] Comment on above: Performed By: #### U RCX #### [facility] [address] [address] [address] Paula Hernandez ALT [Catalytic activity/Vol] 7 U/L Critically low 14-59 [facility] Comment on above: Performed By: #### U RCX #### [facility] [address] [address] [address] Paula Hernandez Anion gap [Moles/Vol] 13.7 mmol/L Normal [facility] Comment on above: Performed By: #### U RCX #### [facility] [address] [address] [address] Paula Hernandez AST [Catalytic activity/Vol] 10 U/L Critically low 15-37 [facility] Comment on above: Performed By: #### U RCX #### [facility] [address] [address] [address] Paula Hernandez Bilirubin [Mass/Vol] 0.3 mg/dL Normal 0.2-1.0 [facility] Comment on above: Performed By: #### U RCX #### [facility] [address] [place] [address] Dr. Paula Hernandez Calcium [Mass/Vol] 8.8 mg/dL Normal 8.5-10.1 [facility] Comment on above: Performed By: #### U RCX #### [facility] [address] [address] [address] Paula Hernandez Chloride [Moles/Vol] 98 mmol/L Normal 98-107 [facility] Comment on above: Performed By: #### U RCX #### [facility] [address] [place] [address] Dr. Paula Hernandez CO2 [Moles/Vol] 21.2 mmol/L Normal 21.0-32.0 [facility] Comment on above: Performed By: #### U RCX #### [facility] [address] [place] [address] Dr. Paula Hernandez Creatinine [Mass/Vol] 0.80 mg/dL Normal 0.55-1.02 [facility] Comment on above: Performed By: #### U RCX #### [facility] [address] [place] [address] Dr. Paula Hernandez EGFR-AF [place]ER >60 Normal >=60 [facility] Comment on above: Performed By: #### U RCX #### [facility] [address] [place] [address] Dr. Paula Hernandez EGFR-NON AF [place] >60 Normal >=60 [facility] Comment on above: Performed By: #### U RCX #### [facility] [address] [address] [address] Paula Hernandez Globulin (S) [Mass/Vol] 4.5 g/dL Normal [facility] Comment on above: Performed By: #### U RCX #### [facility] [address] [place] [address] Dr. Paula Hernandez Glucose [Mass/Vol] 100 mg/dL Normal 74-106 [facility] Comment on above: Performed By: #### U RCX #### [facility] [address] [address] [address] Paula Hernandez Potassium [Moles/Vol] 2.9 mmol/L Critically low 3.5-5.1 [facility] Comment on above: Performed By: #### U RCX #### [facility] [address] [address] [address] Paula Hernandez Protein [Mass/Vol] 7.1 g/dL Normal 6.4-8.2 [facility] Comment on above: Performed By: #### U RCX #### [facility] [address] [address] [address] Paula Hernandez Sodium [Moles/Vol] 130 mmol/L Critically low 136-145 [facility] Comment on above: Performed By: #### U RCX #### [facility] [address] [address] [address] Paula Hernandez Urea nitrogen [Mass/Vol] 8.0 mg/dL Normal 7.0-18.0 [facility] Comment on above: Performed By: #### U RCX #### [facility] [address] [address] [address] Paula Hernandez Urea nitrogen/Creatinine [Mass ratio] 10.0 mg/mg Normal [facility] Comment on above: Performed By: #### U RCX #### [facility] [address] [address] [address] Paula Hernandez URINE MICROSCOPIC ONLYon BACTERIA SMALL Abnormal NONE SEEN [facility] Comment on above: Performed By: #### GARRETT MADRIGALICRO ####[facility] [address] [address]Dr. Paula Hernandez Bacteria identified Cx Nom (U) INDICATED Normal [facility] Comment on above: Performed By: #### E ESEQUIEL UMICRO ####[facility] [address] [id number]. Paula Hernandez CAST NONE SEEN Normal NONE SEEN [facility] Comment on above: Performed By: #### E GARRETT IRAHETAICRO ####[facility] [address] [address]Dr. Paula Hernandez Crystals LM Nom (Urine sed) NONE SEEN Normal NONE SEEN [facility] Comment on above: Performed By: #### MAMADOU MADRIGALRO ####[facility] [address] [id number]. Paula Hernandez Epithelial cells LM Ql (Urine sed) MODERATE Abnormal NONE SEEN /RARE [facility] Comment on above: Performed By: #### Alma Rosa IRAHETA UMICRO ####[facility] [address] [address]Dr. Paula Hernandez MUCOUS NONE SEEN Normal NONE SEEN [facility] Comment on above: Performed By: #### MAMADOU MADRIGALRO ####[facility] [address] [address]Dr. Paula Hernandez RBC NONE SEEN Abnormal 0-2 [facility] Comment on above: Performed By: #### MAMADOU MADRIGALRO ####[facility] [address] [address]Dr. Paula Hernandez WBC 2-5 Abnormal NONE SEEN [facility] Comment on above: Performed By: #### VALERIE MADRIGAL ####[facility] [address] [address]Dr. Paula Hernandez CULTURE URINEon 08-11-2022 CULTURE URINE [...] Trimethoprim/Sulfamet hoxazole <=20 S F Normal [facility] Comment on above: Performed By: #### U RCX #### [facility] [address] [address] [address] Paula Hernandez HEP B SURFACE ANTIGEN SCREEN on 08-10-2022 HBsAg Screen Negative Normal Negative [facility] Comment on above: Performed By: #### U RCX #### [facility] [address] [address] [address] Paula Hernandez HEPATITIS C VIRUS AB W/ REFL EX QUANTon 08-10-2022 HCV AB <0.1 Normal 0.0-0.9 [facility] Comment on above: Performed By: #### H CVPCRR ####[facility] [address] [address]Dr. Paula Hernandez Interpretation: Comment Normal [facility] Comment on above: Result Comment: Nega tive Not infected with HCV, unless recent infection is suspected or other evidence exists to indicate HCV infection. Performed By: #### H CVPCRR ####[facility] [address] [address]DrKiara Hernandez HIV 1 AND 2 WITH REFLEXon HIV Screen 4th Generation wRfx Non-Reactive Normal Non Reactive [facility] Comment on above: Result Comment: HIV Negative HIV-1/HIV-2 antibodies and HIV-1 p24 antigen were NOT detected. There is no laboratory evidence of HIV infection. Performed By: #### H IV12 ####[facility] [address] [address]Dr. Paula Hernandez RPR QUANTon 08-10-2022 Rapid Plasma Reagin, Quant Non-Reactive Normal NonRea<1:1 [facility] Comment on above: Result Comment: Plea se Note: This test does not meet current guidelines for screening and diagnosis of syphilis. This test is intended for following treatment response in patients being treated for syphilis infection. To screen for syphilis infection, a reflex cascade that includes both RPR and a treponema-specific assay should be utilized, such as Treponema pallidum (Syphilis) Screening [place] (066470) or Rapid Plasma Reagin (RPR) Test With Reflex to Quantitative RPR and Confirmatory Treponema pallidum Antibodies (909028). Performed By: #### R PRQ ####[facility] [address] [address]Dr. Paula Hernandez RUBELLA AB IGGon 08-10-2022 Rubella Antibodies, IgG 1.22 index Normal Immune >0.99 [facility] Comment on above: Result Comment: Non- immune <0.90 Equivocal 0.90 - 0.99 Immune >0.99 Performed By: #### U RCX #### [facility] [address] [address] [address] Paula Hernandez CBC AUTO DIFFon 08-09-2022 BASO # 0.0 103/ul Normal 0.0-0.1 [facility] Comment on above: Performed By: #### U RCX #### [facility] [address] [place] [address] Dr. Paula Hernandez Basophils/100 WBC (Bld) 0.4 % Normal 0.2-2.0 [facility] Comment on above: Performed By: #### U RCX #### [facility] [address] [place] [address] Dr. Paula Hernandez EO # 0.2 103/ul Normal 0.0-0.7 [facility] Comment on above: Performed By: #### U RCX #### [facility] [address] [place] [address] Dr. Paula Hernandez Eosinophils/100 WBC (Bld) 1.8 % Normal 0.9-7.0 [facility] Comment on above: Performed By: #### U RCX #### [facility] [address] [place] [address] Dr. Paula Hernandez Erythrocyte distribution width (RBC) [Ratio] 12.2 % Normal 11.0-15.0 [facility] Comment on above: Performed By: #### U RCX #### [facility] [address] [place] [address] Dr. Paula Hernandez Hematocrit (Bld) [Volume fraction] 35.6 % Critically low 36.0-48.0 [facility] Comment on above: Performed By: #### U RCX #### [facility] [address] [place] [address] Dr. Paula Hernandez Hemoglobin (Bld) [Mass/Vol] 11.5 g/dL Critically low 12.0-16.0 [facility] Comment on above: Performed By: #### U RCX #### [facility] [address] [place] [address] Dr. Paula Hernandez IG # 0.05 10e3/ul Critically high 0.00-0.03 [facility] Comment on above: Performed By: #### U RCX #### [facility] [address] [place] [address] Dr. Paula Hernandez IG % 0.5 % Normal 0.0-0.5 [facility] Comment on above: Performed By: #### U RCX #### [facility] [address] [place] [address] Dr. Paula Hernandez LYMPH # 1.8 103/ul Normal 1.2-3.8 [facility] Comment on above: Performed By: #### U RCX #### [facility] [address] [place] [address] Dr. Paula Hernandez Lymphocytes/100 WBC (Bld) 16.9 % Critically low 20.5-60.0 [facility] Comment on above: Performed By: #### U RCX #### [facility] [address] [place] [address] Dr. Paula Hernandez MANUAL DIFF REQ NO Normal [facility] Comment on above: Performed By: #### U RCX #### [facility] [address] [place] [address] Dr. Paula Hernandez MCH (RBC) [Entitic mass] 29.9 pg Normal 26.7-34.0 [facility] Comment on above: Performed By: #### U RCX #### [facility] [address] [place] [address] Dr. Paula Hernandez MCHC (RBC) [Mass/Vol] 32.3 g/dL Normal 29.9-35.2 [facility] Comment on above: Performed By: #### U RCX #### [facility] [address] [place] [address] Dr. Paula Hernandez MCV (RBC) [Entitic vol] 92.7 fL Normal 81.0-99.0 [facility] Comment on above: Performed By: #### U RCX #### [facility] [address] [place] [address] Dr. Paula Hernandez MONO # 1.2 103/ul Critically high 0.3-0.8 [facility] Comment on above: Performed By: #### U RCX #### [facility] [address] [place] [address] Dr. Paula eHrnandez Monocytes/100 WBC (Bld) 11.1 % Normal 1.7-12.0 [facility] Comment on above: Performed By: #### U RCX #### [facility] [address] [place] [address] Dr. Paula Hernandez NEUT # 7.5 103/ul Critically high 1.4-6.5 [facility] Comment on above: Performed By: #### U RCX #### [facility] [address] [place] [address] Dr. Paula Hernandez Neutrophils/100 WBC (Bld) 69.3 % Normal 43.0-75.0 [facility] Comment on above: Performed By: #### U RCX #### [facility] [address] [place] [address] Dr. Paula Hernandez Platelet mean volume (Bld) [Entitic vol] 9.5 fL Normal 9.5-13.5 [facility] Comment on above: Performed By: #### U RCX #### [facility] [address] [place] [address] Dr. Paula Hernandez PLT 359 103/ul Normal 150-450 [facility] Comment on above: Performed By: #### U RCX #### [facility] [address] [place] [address] Dr. Paula Hernandez RBC 3.84 106/ul Critically low 4.20-5.40 [facility] Comment on above: Performed By: #### U RCX #### [facility] [address] [place] [address] Dr. Paula Hernandez WBC 10.7 103/ul Normal 4.0-11.0 [facility] Comment on above: Performed By: #### U RCX #### [facility] [address] [address] [address] Paula Hernandez GLYCOHEMOGLOBIN A1Con 2021 ADA RECOMMENDATION SEE BELOW Normal [facility] Comment on above: Result Comment: ADA RECOMMENDED LIMIT 4.0 - 6.0 ADA THERAPEUTIC TARGET < 7.0 ACTION SUGGESTED > 7.0 Performed By: #### U RCX #### [facility] [address] [address] [address] Paula Hernandez Glucose [Mass/Vol] 94 mg/dL Normal [facility] Comment on above: Performed By: #### U RCX #### [facility] [address] [address] [address] Paula Hernandez HbA1c (Bld) [Mass fraction] 4.9 % Normal 4.5-6.2 [facility] Comment on above: Performed By: #### U RCX #### [facility] [address] [address] [address] Paula Hernandez TYPE AND SCREENon 08-09-2022 TYPE AND SCREEN Negative Normal [facility] Comment on above: Performed By: #### T NS #### [facility] [address] [address] [address] Paula Hernandze US PREG TVon 07-24-2022 US PREG TV [...] AP CASTILLO Date: 2022-07-24 16:28 Normal [facility] COMPREHENSIVE METABOLIC PANE Julio C 05-03-2021 Albumin [Mass/Vol] 4.4 g/dL Normal 3.6-5.1 [facility] Comment on above: Performed By: #### 1 023, 7600 #### [facility] of [address], [address] [place] [address] Intake Rn: Mukesh Snow MD Albumin/Globulin [Mass ratio] 1.6 {ratio} Normal 1.0-2.5 [facility] Comment on above: Performed By: #### 1 023, 7600 #### [facility] of [address], [address] [place] [address] Intake Rn: Mkuesh Snow MD ALP [Catalytic activity/Vol] 57 U/L Normal 31-125 [facility] Comment on above: Performed By: #### 1 230, 7600 #### [facility] of [address] [place] [address] Intake Rn: Mukesh Snow MD ALT [Catalytic activity/Vol] 9 U/L Normal 6-29 [facility] Comment on above: Performed By: #### 1 023, 7600 #### [facility] of [address] [address] Intake Rn: Mukesh Snow MD AST [Catalytic activity/Vol] 13 U/L Normal 10-30 [facility] Comment on above: Performed By: #### 1 023, 7600 #### [facility] of [address] [place] [address] Intake Rn: Mukesh Snow MD Bilirubin [Mass/Vol] 0.3 mg/dL Normal 0.2-1.2 [facility] Comment on above: Performed By: #### 1 023, 7600 #### [facility] of [address] [place] [address] Intake Rn: Mukesh Snow MD BUN/CREATININE RATIO NOT APPLICABLE Normal 6-22 [facility] Comment on above: Performed By: #### 1 023, 7600 #### [facility] of [address], [address] [place] [address] Intake Rn: Mukesh Snow MD Calcium [Mass/Vol] 9.2 mg/dL Normal 8.6-10.2 [facility] Comment on above: Performed By: #### 1 0231, 7600 #### [facility] of [address], [address] [place] [address] Intake Rn: Mukesh Snow MD Chloride [Moles/Vol] 105 mmol/L Normal 98-110 [facility] Comment on above: Performed By: #### 1 0231, 7600 #### [facility] of [address] [address] Intake Rn: Mukesh Snow MD CO2 [Moles/Vol] 25 mmol/L Normal 20-32 [facility] Comment on above: Performed By: #### 1 023, 7600 #### [facility] of [address] [address] Intake Rn: Mukesh Snow MD Creatinine [Mass/Vol] 1.00 mg/dL Normal 0.50-1.10 [facility] Comment on above: Performed By: #### 1 023, 7600 #### [facility] of [address] [address] Intake Rn: Mukesh Snow MD eGFR NON-AFR. [place] 75 mL/min/1.73m2 Normal > OR = 60 [facility] Comment on above: Performed By: #### 1 0231, 7600 #### [facility] of [address] [address] Intake Rn: Mukesh Snow MD GFR/1.73 sq M.predicted among blacks MDRD (S/P/Bld) [Vol rate/Area] 87 mL/min/{1.73_m2} Normal > OR = 60 [facility] Comment on above: Performed By: #### 1 0231, 7600 #### [facility] of [address] [address] Intake Rn: Mukesh Snow MD Globulin (S) [Mass/Vol] 2.8 g/dL Normal 1.9-3.7 [facility] Comment on above: Performed By: #### 1 0231, 7600 #### [facility] [place] [address] Intake Rn: Mukesh Snow MD Glucose [Mass/Vol] 82 mg/dL Normal 65-139 [facility] Comment on above: Result Comment: Non-fasting reference interval Performed By: #### 1 023, 7600 #### [facility] [place] [address] Intake Rn: Mukesh Snow MD Potassium [Moles/Vol] 3.9 mmol/L Normal 3.5-5.3 [facility] Comment on above: Performed By: #### 1 230, 7600 #### [facility] [place] [address] Intake Rn: Mukesh Snow MD Protein [Mass/Vol] 7.2 g/dL Normal 6.1-8.1 [facility] Comment on above: Performed By: #### 1 0231, 7600 #### [facility] [place] [address] Intake Rn: Mukesh Snow MD Sodium [Moles/Vol] 137 mmol/L Normal 135-146 [facility] Comment on above: Performed By: #### 1 0231, 7600 #### [facility] [place] [address] Intake Rn: Mukesh Snow MD Urea nitrogen [Mass/Vol] 10 mg/dL Normal 7-25 [facility] Comment on above: Performed By: #### 1 0231, 7600 #### [facility] [place] [address] Intake Rn: Mukesh Snow MD LIPID PANEL, STANDARD Cholesterol [Mass/Vol] 224 mg/dL High <200 [facility] Comment on above: Order Comment: FASTI NG:NO FASTING: NO Performed By: #### 1 0231, 7600 #### [facility] [address], [address] [place] [address] Intake Rn: Mukesh Snow MD Cholesterol in HDL [Mass/Vol] 62 mg/dL Normal > OR = 50 [facility] Comment on above: Order Comment: FASTI NG:NO FASTING: NO Performed By: #### 1 0231, 7600 #### [facility] [address], [address] [place] [address] Intake Rn: Mukesh Snow MD Cholesterol in LDL [Mass/Vol] 133 mg/dL High [facility] Comment on above: Order Comment: FASTI NG:NO FASTING: NO Result Comment: Refe rence range: <100 Desirable range <100 mg/dL for primary prevention; <70 mg/dL for patients with CHD or diabetic patients with > or = 2 CHD risk factors. LDL-C is now calculated using the Savanna calculation, which is a validated novel method providing better accuracy than the Friedewald equation in the estimation of LDL-C. Jose CÁRDENAS et al. CARLOZ. 2013;310(19): 8397-8538 (http://education.Avidbots/faq/CRZ511) Performed By: #### 1 0231, 7600 #### [facility] [address], [address] [place] [address] Intake Rn: Mukesh Snow MD Cholesterol.total/Ch olesterol in HDL [Mass ratio] 3.6 {ratio} Normal <5.0 [facility] Comment on above: Order Comment: FASTI NG:NO FASTING: NO Performed By: #### 1 0231, 7600 #### [facility] [address], [address] [place] [address] Intake Rn: Mukesh Snow MD NON HDL CHOLESTEROL 162 mg/dL (calc) High <130 [facility] Comment on above: Order Comment: FASTI NG:NO FASTING: NO Result Comment: For patients with diabetes plus 1 major ASCVD risk factor, treating to a non-HDL-C goal of <100 mg/dL (LDL-C of <70 mg/dL) is considered a therapeutic option. Performed By: #### 1 023, 7600 #### [facility] [address], [address] [place], [place] [id number] Intake Rn: Mukesh Snow MD Triglyceride [Mass/Vol] 155 mg/dL High <150 [facility] Comment on above: Order Comment: FASTI NG:NO FASTING: NO Performed By: #### 1 0231, 0 #### [facility] [address], [address] [place] [address] Intake Rn: Mukesh Snow MD Vital Signs Date Time Vital Sign Value Performing Clinician Facility 08-19-2024 10:07-0400 Body height 152.4 cm Alexsander Farnsworth Work Phone: [facility] 08-19-2024 10:07-0400 Body mass index (BMI) [Ratio] 21.87 kg/m2 Alexsander Farnsworth DO Work Phone: [facility] 08-19-2024 10:07-0400 Body temperature 97.7 [degF] Alexsander Farnsworth DO Work Phone: [facility] 08-19-2024 10:07-0400 Body weight 50.8 kg Alexsander Farnsworth DO Work Phone: [facility] 08-19-2024 10:07-0400 Diastolic blood pressure 78 mm[Hg] Alexsander Farnsworth DO Work Phone: [facility] 08-19-2024 10:07-0400 Heart rate 106 /min Alexsander Dees DO Work Phone: [facility] 08-19-2024 10:07-0400 Respiratory rate 18 /min Alexsander Dees DO Work Phone: [facility] 08-19-2024 10:07-0400 SaO2% (BldA) [Mass fraction] 100 % Alexsander Seemapietro DO Work Phone: [facility] 08-19-2024 10:07-0400 Systolic blood pressure 100 mm[Hg] Alexsander Dees DO Work Phone: [facility] 06-24-2024 11:07-0400 Body height 152.4 cm Alexsander Dees DO Work Phone: [facility] 06-24-2024 11:07-0400 Body mass index (BMI) [Ratio] 20.94 kg/m2 Alexsander Dees DO Work Phone: [facility] 06-24-2024 11:07-0400 Body temperature 99.19 [degF] Alexsander Dees DO Work Phone: [facility] 06-24-2024 11:07-0400 Body weight 48.63 kg Alexsander Dees DO Work Phone: [facility] 06-24-2024 11:07-0400 Diastolic blood pressure 62 mm[Hg] Alexsander Dees DO Work Phone: [facility] 06-24-2024 11:07-0400 Heart rate 76 /min Alexsander Dees DO Work Phone: [facility] 06-24-2024 11:07-0400 Respiratory rate 18 /min Alexsander Dees DO Work Phone: [facility] 06-24-2024 11:07-0400 SaO2% (BldA) [Mass fraction] 99 % Alexsander Dees DO Work Phone: [facility] 06-24-2024 11:07-0400 Systolic blood pressure 90 mm[Hg] Alexsander Stephensonhas DO Work Phone: [facility] 05-16-2024 15:10-0400 Body height 152.4 cm Alexsander Stephensonhas DO Work Phone: [facility] 05-16-2024 15:10-0400 Body mass index (BMI) [Ratio] 21.46 kg/m2 Alexsander Dees DO Work Phone: [facility] 05-16-2024 15:10-0400 Body temperature 97.59 [degF] Alexsander Farnsworth DO Work Phone: [facility] 05-16-2024 15:10-0400 Body weight 49.85 kg Alexsander Farnsworth DO Work Phone: [facility] [employer] 05-16-2024 15:10-0400 Diastolic blood pressure 64 mm[Hg] Alexsander Farnsworth DO Work Phone: [facility] 05-16-2024 15:10-0400 Heart rate 93 /min Alexsander Farnsworth DO Work Phone: [facility] 05-16-2024 15:10-0400 Respiratory rate 18 /min Alexsander Farnsworth DO Work Phone: [facility] 05-16-2024 15:10-0400 SaO2% (BldA) [Mass fraction] 100 % Alexsander Farnsworth DO Work Phone: [facility] 05-16-2024 15:10-0400 Systolic blood pressure 100 mm[Hg] Alexsander Farnsworth DO Work Phone: [facility] 01-25-2024 11:21-0400 Body height 152.4 cm Kira CABRERA Work Phone: [facility] 01-25-2024 11:21-0400 Body mass index (BMI) [Ratio] 21.33 kg/m2 Kira Harley APRN-ASSISTANT PROFESSOR OF THEATER Work Phone: [facility] 01-25-2024 11:21-0400 Body temperature 98.1 [degF] Kira Harley APRN-ASSISTANT PROFESSOR OF THEATER Work Phone: [facility] 01-25-2024 11:21-0400 Body weight 49.53 kg Kira Harley APRN-ASSISTANT PROFESSOR OF THEATER Work Phone: [facility] 01-25-2024 11:21-0400 Diastolic blood pressure 64 mm[Hg] Kira Harley TRAFFIC OBSERVER-ASSISTANT PROFESSOR OF THEATER Work Phone: [facility] 01-25-2024 11:21-0400 Heart rate 64 /min Kira Harley TRAFFIC OBSERVER-ASSISTANT PROFESSOR OF THEATER Work Phone: [facility] 01-25-2024 11:21-0400 Respiratory rate 18 /min Kira Harley TRAFFIC OBSERVER-ASSISTANT PROFESSOR OF THEATER Work Phone: [facility] 01-25-2024 11:21-0400 SaO2% (BldA) [Mass fraction] 97 % Kira Harley TRAFFIC OBSERVER-ASSISTANT PROFESSOR OF THEATER Work Phone: [facility] 01-25-2024 11:21-0400 Systolic blood pressure 110 mm[Hg] Kira Harley TRAFFIC OBSERVER-ASSISTANT PROFESSOR OF THEATER Work Phone: [facility] Encounters Encounter Date Encounter Type Care Provider Facility Start: 12-19-2024 End: 12-19-2024 Bamboo flowsheet Natasha Rachel DO Work Phone: [facility] Start: 12-19-2024 End: 12-19-2024 Bamboo flowsheet Natasha Rachel DO Work Phone: [facility] Start: 12-19-2024 End: 12-19-2024 ambulatory NATASHA RACHEL Not Available Start: 12-18-2024 End: 12-18-2024 ambulatory Ellis Mckeon DO Work Phone: [facility] Work Phone: Start: 12-18-2024 End: 12-18-2024 Departed Referred Ellis Mckeon DO Work Phone: [facility] Start: 11-28-2024 End: 11-28-2024 Clinisync Result Encounter Natasha Rachel DO Work Phone: [facility] Unsolicited Start: 11-28-2024 End: 11-28-2024 Clinisync Result Encounter Natasha Rachel DO Work Phone: [facility] Unsolicited Start: 11-18-2024 End: 11-18-2024 Office outpatient visit 5 minutes [facility] Rachel Nurse [facility] Comment on above: GA: 10w0d Start: 11-18-2024 End: 11-18-2024 ambulatory NATASHA RAMOS Not Available Start: 08-19-2024 End: 08-19-2024 ambulatory [facility] Start: 08-19-2024 End: 08-19-2024 Office outpatient visit 25 minutes Alexsander Farnsworth DO Work Phone: [facility] Internal Medicine - Family Medicine Comment on above: Orthostatic hypotens ion (Primary Dx); Palpitations; Benign paroxysmal positional vertigo, unspecified laterality; Upper respiratory symptom Start: 06-28-2024 End: 07-06-2024 Telephone encounter Alexsander Farnsworth DO Work [facility] Start: 06-24-2024 End: 06-24-2024 Office outpatient visit 25 minutes Alexsander Farnsworth DO Work Phone: [facility] Internal Medicine - Family Medicine Comment on above: Orthostatic hypotens ion (Primary Dx); Palpitations Start: 06-24-2024 End: 06-24-2024 [facility] Start: 06-17-2024 End: 06-17-2024 ambulatory [facility] Start: 06-03-2024 End: 06-03-2024 ambulatory [facility] Start: 05-16-2024 End: 05-16-2024 ambulatory [facility] Start: 05-16-2024 End: 05-16-2024 Office outpatient visit 25 minutes Alexsander Farnsworth DO Work Phone: [facility] Internal Medicine - Family Medicine Comment on above: Orthostatic hypotens ion (Primary Dx); Palpitations Start: 05-16-2024 End: 05-16-2024 [facility] Start: 01-25-2024 End: 01-25-2024 Office outpatient visit 15 minutes Kira Harley TRAFFIC OBSERVER-ASSISTANT PROFESSOR OF THEATER Work Phone: [facility] Internal Medicine - Family Medicine Comment on above: Pharyngitis, unspeci fied etiology (Primary Dx); Flu-like symptoms; Gastroenteritis; Dizziness Start: 01-25-2024 End: 01-25-2024 ambulatory KIRA HARLEY [facility] Start: 03-11-2023 End: 03-11-2023 ambulatory [...] abnormal findings DR NATASHA RAMOS . [facility] Start: 11-26-2022 End: 11-26-2022 ambulatory [...] End: 07-25-[address] NATASHA RAMOS . Facility:[facility]1 Procedures Date Procedure Procedure Detail Performing Clinician Start: 11-28-2024 ALL CBC WITH AUTO DIFF Natasha Rachel DO Work Phone: Start: 11-18-2024 Urnls dip stick/tabl et rgnt non-auto w/o micrscp Natasha Rachel DO Work Phone: Start: 08-19-2024 POCT INFLUENZA A/INF LUENZA B/SARS-COV-2 VERITOR Alexsander Farnsworth DO Work Phone: Start: 08-19-2024 Iaadiadoo streptococ cus group a Alexsander Farnsworth DO Work Phone: Start: 08-19-2024 Adult depression scr eening assessment Alexsander Farnsworth DO Work Phone: Start: 05-16-2024 Adult depression scr eening assessment Alexsander Farnsworth DO Work Phone: Start: 01-25-2024 POCT INFLUENZA A/INF LUENZA B/SARS-COV-2 VERITOR Kira Harley TRAFFIC OBSERVER-ASSISTANT PROFESSOR OF THEATER Work Phone: Start: 01-25-2024 Iaadiadoo streptococ cus group a Kira Harley TRAFFIC OBSERVER-ASSISTANT PROFESSOR OF THEATER Work Phone: Start: 01-25-2024 Adult depression scr eening assessment Kira Harley TRAFFIC OBSERVER-ASSISTANT PROFESSOR OF THEATER Work Phone: Start: 03-06-2023 Transfusion of Nonautologous Red Blood Cells into Peripheral Vein, Percutaneous Approach [facility] . Start: 03-05-2023 Extraction of Produc ts of Conception, Low Cervical, Open Approach [facility] . Plan of Treatment Date Care Activity Detail Author Start: 08-19-2025 Adult BMI Screening Adult BMI Screen ing [facility] Start: 08-19-2025 Depression Screening Depression Scre ening [facility] Start: 08-19-2025 Tobacco Screening Tobacco Screening [facility] Start: 06-24-2025 Adult BMI Screening Adult BMI Screen ing [facility] Start: 06-24-2025 Tobacco Screening Tobacco Screening [facility] Start: 05-16-2025 Adult BMI Screening Adult BMI Screen ing [facility] Start: 05-16-2025 Depression Screening Depression Scre ening [facility] Start: 05-16-2025 Tobacco Screening Tobacco Screening [facility] Start: 01-24-2025 Adult BMI Screening Adult BMI Screen ing [facility] Start: 01-24-2025 Depression Screening Depression Scre ening [facility] Start: 01-24-2025 Tobacco Screening Tobacco Screening [facility] Start: 12-19-2024 End: 12-19-2024 Patient encounter procedure [facility] Comment on above: Arrived Start: 12-18-2024 Bacteria identified in Urine by Culture Urine Culture [facility] Start: 12-18-2024 Urine culture [facility] Start: 11-18-2024 End: 11-18-2025 ABO/Rh ABO/Rh Lab Routine Missed menses , unspecified gestational age Expected: 11/18/2024 (Approximate), Expires: 11/18/2025 [facility] Comment on above: Expected: 11/18/2024 (Approximate), Expires: 11/18/2025 Start: 11-18-2024 End: 11-18-2025 Blood type and Indirect antibody screen panel - Blood Type and screen Lab Routine Missed menses , unspecified gestational age Expected: 11/18/2024 (Approximate), Expires: 11/18/2025 [facility] Comment on above: Expected: 11/18/2024 (Approximate), Expires: 11/18/2025 Start: 11-18-2024 End: 11-18-2025 Drugs of abuse panel - Urine by Screen method Rapid drug screen, urine Lab Routine , unspecified gestational age Encounter for supervision of normal first in first trimester Expected: 11/18/2024 (Approximate), Expires: 11/18/2025 [facility] Comment on above: Expected: 11/18/2024 (Approximate), Expires: 11/18/2025 Start: 11-17-2024 End: 11-17-2025 US Pelvis transvaginal US OB transvaginal Imaging Routine Missed menses Expected: 11/17/2024, Expires: 11/17/2025 [facility] Work Phone: Comment on above: Expected: 11/17/2024 , Expires: 11/17/2025 Start: 08-19-2024 End: 08-19-2024 Patient encounter procedure 08/19/2024 10:00 AM EDT [facility] [address] [place] [address] Alexsander Farnsworth, DO [address] [facility] [place] [address] [facility] Start: 06-26-2024 COVID-19 Vaccine ( season) COVID-19 Vaccine () [facility] Start: 06-26-2024 Influenza vaccination [facility] Start: 06-24-2024 End: 06-24-2024 Patient encounter procedure 06/24/2024 11:00 AM EDT [facility] [address] [place] [address] Alexsander Farnsworth, DO [address] [place] [address] [facility] Internal [facility] Start: 05-16-2024 End: 05-16-2025 Echo complete W/O contrast Echo complete W/O contrast Echocardiography Routine Orthostatic hypotension Expected: 05/16/2024, Expires: 05/16/2025 [facility] Comment on above: Expected: 05/16/2024 , Expires: 05/16/2025 Start: 05-16-2024 End: 05-16-2025 Event monitor Event monitor Cardiac Services Routine Orthostatic hypotension Expected: 05/16/2024, Expires: 05/16/2025 [facility] Comment on above: Expected: 05/16/2024 , Expires: 05/16/2025 Start: 10-07-2023 DTaP,Tdap and Td Vaccines (6 - Tdap) DTaP,Tdap and Td Vaccines (6 - Tdap) [facility] Start: 06-26-2023 COVID-19 Vaccine (3 - 2023-24 season) COVID-19 Vaccine ( - season) [facility] Start: 2020 Screening for malign ant neoplasm of cervix [facility] Start: 2011 Screening for malign ant neoplasm of cervix Pap Smear [facility] Start: 2009 DTaP,Tdap and Td Vaccines (1 - Tdap) DTaP,Tdap and Td Vaccines (1 - Tdap) [facility] Bacteria identified in Urine by Culture Urine culture Microbiology Routine Missed menses Ordered: 11/18/2024 [facility] Comment on above: Ordered: 11/18/2024 CBC W Auto Different ial panel - Blood CBC and differential Lab Routine Missed menses , unspecified gestational age Ordered: 11/18/2024 [facility] Comment on above: Ordered: 11/18/2024 End: 05-16-2025 CBC W Auto Differential panel - Blood CBC auto differential Lab Routine Palpitations 1 Occurrences starting 05/16/2024 until 05/16/2025 [facility] [employer] Comment on above: 1 Occurrences starti ng 05/16/2024 until 05/16/2025 End: 05-16-2025 Comprehensive metabolic 2000 panel - Serum or Plasma Comprehensive metabolic panel Lab Routine Palpitations 1 Occurrences starting 05/16/2024 until 05/16/2025 [facility] Work [facility]: Comment on above: 1 Occurrences starti ng 05/16/2024 until 05/16/2025 End: 05-16-2025 Cyanocobalamin vitamin b-12 Vitamin B12 Lab Routine Palpitations 1 Occurrences starting 05/16/2024 until 05/16/2025 [facility] Comment on above: 1 Occurrences starti ng 05/16/2024 until 05/16/2025 Hemoglobin A1c/Hemoglobin.total in Blood Hemoglobin A1c Lab Routine Missed menses , unspecified gestational age Ordered: 11/18/2024 [facility] Comment on above: Ordered: 11/18/2024 Hepatitis B virus surface Ag [Presence] in Serum or Plasma by Immunoassay Hepatitis B surface antigen Lab Routine Missed menses , unspecified gestational age Ordered: 11/18/2024 [facility] Comment on above: Ordered: 11/18/2024 Hepatitis C virus Ab [Presence] in Serum or Plasma by Immunoassay Hepatitis C antibody Lab Routine Missed menses , unspecified gestational age Ordered: 11/18/2024 [facility] Comment on above: Ordered: 11/18/2024 HIV-1/HIV-2 antigen/antibody combination immunoassay HIV-1 and HIV-2 antibodies Lab Routine Missed menses , unspecified gestational age Ordered: 11/18/2024 [facility] Comment on above: Ordered: 11/18/2024 End: 05-16-2025 Iron and TIBC Iron and TIBC Lab Routine Palpitations 1 Occurrences starting 05/16/2024 until 05/16/2025 [facility] Comment on above: 1 Occurrences starti ng 05/16/2024 until 05/16/2025 Reagin Ab [Presence] in Serum by RPR RPR Lab Routine Missed menses , unspecified gestational age Ordered: 11/18/2024 [facility] Comment on above: Ordered: 11/18/2024 Rubella antibody, IgG Rubella an tibody, IgG Lab Routine Missed menses , unspecified gestational age Ordered: 11/18/2024 [facility] Comment on above: Ordered: 11/18/2024 End: 05-16-2025 TSH with Reflex TSH with Reflex Lab Routine Palpitations 1 Occurrences starting 05/16/2024 until 05/16/2025 [facility] Comment on above: 1 Occurrences starti ng 05/16/2024 until 05/16/2025 US Pelvis transvaginal US OB tra nsvaginal Imaging Routine Missed menses 11/18/2024 9:19 AM EST [facility] Immunizations Immunization Date Immunization Notes Care Provider Sandrine soto 10-07-2013 diphtheria, tetanus toxoids and pertussis vaccine Alexsander Farnsworth DO Work Phone: [facility] 05-14-1992 diphtheria, tetanus toxoids and pertussis vaccine Alexsander Farnsworth DO Work Phone: [facility] 05-14-1992 poliovirus vaccine, unspecified formulation Alexsander Farnsworth DO Work Phone: [facility] 07-11-1991 measles, mumps and rubella virus vaccine Alexsander Farnsworth DO Work Phone: [facility] 1990 diphtheria, tetanus toxoids and pertussis vaccine Alexsander Farnsworth DO Work Phone: [facility] 1990 poliovirus vaccine, unspecified formulation Alexsander Farnsworth DO Work Phone: [facility] 1990 diphtheria, tetanus toxoids and pertussis vaccine Alexsander Farnsworth DO Work Phone: [facility] 1990 diphtheria, tetanus toxoids and pertussis vaccine Alexsander Farnsworth DO Work Phone: [facility] 1990 poliovirus vaccine, unspecified formulation Alexsander Farnsworth DO Work Phone: [facility] Payers Date Payer Category Payer Private Health Insurance [id number] 2022 Unknown [id number] 2003 Medicaid [id number] 1990 Unknown [id number] 2.16.84 [id number] 1990 Unknown [id number] 2.16.84 0.1.893621.3.579.2.593 1990 Unknown [id number] 2.16.84 0.1.651973.3.579.2.593 1990 Unknown [id number] 2.16.84 0.1.919106.3.579.2.593 1990 Unknown [id number] 2.16.84 0.1.724679.3.579.2.593 1990 Unknown [id number] 2.16.84 0.1.036701.3.579.2.593 1990 Unknown [id number] 2.16.84 0.1.897446.3.579.2.593 1990 Unknown [id number] 2.16.84 0.1.652212.3.579.2.593 1990 Unknown [id number] 2.16.84 0.1.627824.3.579.2.593 1990 Unknown [id number] 2.16.84 0.1.680819.3.579.2.593 1990 Unknown [id number] 2.16.84 0.1.585789.3.579.2.593 1990 Unknown [id number] 2.16.84 0.1.222664.3.579.2.593 1990 Unknown [id number] 2.16.8 40.1.242290.3.579.2.1286 1990 Unknown [id number] 2.16.8 40.1.917668.3.579.2.1285 1990 Unknown [id number] 2.16.8 40.1.599337.3.579.2.1285 1990 Unknown [id number] 2.16.8 40.1.911968.3.579.2.1285 1990 Unknown [id number] 2.16.8 40.1.982080.3.579.2.1286 1990 Unknown [id number] 2.16.8 40.1.481096.3.579.2.1285 1990 Unknown [id number] 2.16.8 40.1.185584.3.579.2.1285 1990 Unknown [id number] 2.16.84 0.1.473560.3.579.2.9 1990 Unknown [id number] 2.16.84 0.1.229706.3.579.2.9 1990 Unknown [id number] 2.16.84 0.1.736555.3.579.2.1259 1959 Unknown [id number] 1959 Unknown [id number] Social History Date Type Detail Facility Start: 04-17-2023 End: 05-13-2023 Tobacco smoking status TXIS Never smoked tobacco [facility] Start: 11-18-2024 Alcoholic beverage intake Lifetime non-drinker (finding) [facility] Start: 12-06-2020 End: 11-18-2024 History of Social function [facility] Start: 12-06-2020 End: 11-18-2024 Tobacco use panel [facility] Start: [facility]23-2024 [facility] Start: 1990 Sex assigned at Not on file [facility] Start: 05-13-2023 Tobacco use and exposure Smokeless tobacco non-user [facility] Start: 05-16-2024 End: 08-19-2024 Alcoholic beverage intake Current drinker of alcohol (finding) [facility] Adolescent depressio n screening assessment 0 [facility] Start: 05-13-2023 Alcohol Comment [facility] Start: 05-31-2015 End: 12-20-2024 Sex Female (finding) [facility] Tobacco smoking stat us NHIS Unknown if ever smoked [facility] Work Phone: Start: 1990 Sex Assigned At Female F [facility] Goals Date Patient Goal Desired Activity /State Personal health goal Comment on above: Formatting of this n ote might be different from the original. Evaluation of progress towards goal: home w family Clinical Notes 03-05-2023 to 11-18-2024 Machelle Germain MA - 11/18/2024 9:30 AM Ted Farnsworth DO - 08/19/2024 10:00 AM EDTTelephone Encounter - Deann Elizalde - 06/28/2024 2:34 PM Sola Farnsworth DO - 06/24/2024 11:00 AM EDT Note Date [...] or undercooked meat, and stay away from [facility]. Patient has also been advised to not [...] Machelle Germain MA documented in this encounter [facility] 08-19-2024 History of Presen t illness Narrative IM PROGRESS NOTE Patient - Marilee Mercado Age - 34 y.o. - 1990 ASSESSMENT & PLAN 1. Orthostatic hypotension (Primary) [...] unless symptoms worsen 4. Upper respiratory symptom -CLINICAL OFFICE TECHNICIAN and throat swab were performed today. All [...] Testing No results found. Alexsander Farnsworth DO., [facility] Office: [phone] documented in this encounter [facility] 06-28-2024 Miscellaneous Notes Formattin g of this note might be different from the original. Where do compression stockings need to be sent Message noted. Wherever she wants them sent. Her choice of DME supplier is [employer] or [employer] Lm on vm going to [facility] documented in this encounter [facility] 06-28-2024 Telephone encount er Note Where do compression stockings need to be sent [facility] 06-28-2024 Telephone encount er Note Message noted. Wherever she wants them sent. Her choice of DME supplier is [facility] or [employer] [facility] 06-28-2024 Telephone encount er Note Lm on vm [facility] 06-28-2024 Telephone encount er Note going to [facility] 06-24-2024 History of Presen t illness Narrative [...] she should try to get at least 7542-4473 g sodium daily. -in addition, needs to [...] 8 cm Final Left Ventricle Mass 06/17/2024 [id number] g Final Interventricular Septum Diastolic * 06/17/2024 [...] No significant valvular abnormalities.. Alexsander Farnsworth DO., [facility] Office: [phone] [facility] History of Presen t illness Narrative [...] or blacked out. -she currently works at [employer] the [employer], and drinks at least 90-100 oz of [...] Testing No results found. Alexsander Farnsworth DO., [facility] Office: [phone] documented in this encounter [facility] 01-25-2024 History of Presen t illness Narrative [...] Ly 01/25/24 1212 documented in this encounter [facility] 03-05-2023 Note DISCHARGE SUMMARY DISCHARGE DATE: 03/23/2023 [...] free and no longer on narcotics. [facility] 03-05-2023 Note OPERATIVE NOTE OPERATION DATE: 03/05/2023 PROCEDURE: Repeat low transverse section. PREOPERATIVE DIAGNOSIS: 1. Previous . 2. Intrauterine at 39 weeks. 3. Chronic anemia. POSTOPERATIVE DIAGNOSIS: 1. Previous . 2. Intrauterine at 39 weeks. 3. Chronic anemia. ANESTHESIA: Spinal with Duramorph. SURGEON: Natasha Ramos D.O. [employer] COLORER: LANA Garrido URINE OUTPUT: Yellow and clear. [...] and cut. Cord blood was obtained. The was handed off to awaiting team. The [...] the Recovery Room in stable condition. [facility] Evaluation note Diagnosis Missed menses 10 weeks gestation of , unspecified gestational age Encounter for supervision of normal first in first trimester documented in this encounter [facility]* Diagnosis Orthostatic hypotension- Primary Palpitations [facility] Diagnosis Pharyngitis, unspecified etiology- Primary Flu-like symptoms Gastroenteritis Other and unspecified noninfectious gastroenteritis and colitis Dizziness Dizziness and giddiness [facility] Diagnosis Orthostatic hypotension- Primary Palpitations [facility] Diagnosis Orthostatic hypotension- Primary Palpitations Benign paroxysmal positional vertigo, unspecified laterality Upper respiratory symptom documented [facility] note[facility] assessment information available [facility] Work Phone: InstructionsNot on filedocumented in this encounter [facility] filedocumented in this encounter [facility] filedocumented in this encounter [facility] filedocumented in this encounter [facility] Summary Purpose Family History No Family History Records FoundNo Family History Records FoundNo Family History Records FoundNo Family History Records FoundNo Family History Records FoundNo Family History Records Found Advance Directives No Advanced Directives Records Found Date Activated Date Inactivated Comments 05/14/2017 1:41 [...] hypotension Procedures Echo complete W/O contrast Alexsander Farnsworth, DO [address] [place] [address] Referral ID Status Reason Start Date Expiration Date V isits Requested Visits Authorized [id number] Pending Review 05/16/2024 05/16/2025 1 1 Additional Source Comments INFORMATION SOURCE (unrecogn ized section and content) DATE CREATED AUTHOR 08/25/2021 [facility] DATE CREATED AUTHOR AUTHOR'S ORGANIZ ATION 04/03/2023 [facility] DATE CREATED AUTHOR AUTHOR'S ORGANIZ ATION 05/19/2024 [facility] DATE CREATED AUTHOR AUTHOR'S ORGANIZ ATION 06/19/2024 [facility] DATE CREATED AUTHOR AUTHOR'S ORGANIZ ATION 08/21/2024 [facility] DATE CREATED AUTHOR AUTHOR'S ORGANIZ ATION 12/20/2024 [facility] EPIC Reason for Visit (unrecogniz ed section and content) Reason Comments Amenorrhea Reason Comments low bp 86/66 Work medical form Reason Comments Sore Throat Vomiting Headache Pt been sick since.1 day Reason Comments BP/ test results Reason Comments bp, sinus Sore Throat 4 days Care Teams (unrecognized sec tion and content) Nursing Service Director Relationship Specialty Start Date End Date Alexsander Farnsworth MD [address] [place] [address] PCP - General Internal Medicine 04/14/23 Nursing Service Director Relationship Specialty Start Date End Date Alexsander Farnsworth MD [address] [place] [address] PCP - General Internal Medicine 04/14/23 Nursing Service Director Relationship Specialty Start Date End Date Alexsander Farnsworth DO [address] [place] [address] PCP - General Internal Medicine 05/13/17 Nursing Service Director Relationship Specialty Start Date End Date Alexsander Farnsworth DO [address] [place] [address] PCP - General Internal Medicine 05/13/17 Nursing Service Director Relationship Specialty Start Date End Date Alexsander Farnsworth DO [address] [facility] [place] [address] PCP - General Internal Medicine 05/13/17 Nursing Service Director Relationship Specialty Start Date End Date Alexsander Farnsworth DO [address] [place] [address] PCP - General Internal Medicine 05/13/17 Nursing Service Director Relationship Specialty Start Date End Date Alexsander Farnsworth DO [address] [place] [address] PCP - General Internal Medicine 05/13/17 Nursing Service Director Relationship Specialty Start Date End Date Alexsander Farnsworth MD [address] [place] [address] PCP - General Internal Medicine 04/14/23 Team Status: Inactive Member Role Status Dates Ellis Mckeon DO Attending Provider Active Start: December 18, 2024 End: December 18, 2024 Goals (unrecognized section and content) Goals may be documented in a n alternate section FOR RECORDS PERTAINING TO PATIENTS WHO ARE [...] BE BASED ON THE PRIMARY CLINICAL RECORDS. [facility] provides no warranty or guarantee of the accuracy or completeness of information in this document.
== END 2024-12-20 10:54 | disposition home or self-care (01) ==
LOC: PST 10:54
PROVIDERS: PCP Internal Medicine; Visit Provider Obstetrics & Gynecology
DX: Z01.812 Encounter for preprocedural laboratory examination (principal); O02.1 Missed abortion
CPT/HCPCS: 86850; 86900; 86901

== ENCOUNTER 2024-12-22 06:09 | Day surgery (SDC) | payer OTHER, SELFPAY ==
[2024-12-20 11:23] VITALS: BP 131/84; PULSE 107; TEMP 36.4; O2SAT 98; BMI 21.8
--- OUTSIDE RECORDS SUMMARY | 2024-12-22 06:11 | XMS_ITS | CCD ---
Author Organization [facility] Care Team Providers Care Boil Off Worker Name Role Phone ALISA ., UMA Attending [...] Unavailable RACHEL ., DR KAUR Attending Unavailable PAULDING, DR REINA Holly Consulting Unavailable RACHEL ., [...] Unavailable ALLEN ., J CARLOS Admitting Unavailable [facility] [place] DR PERKINS Primary Care Unavailable YUHAS, ALEXSANDER [...] Care Provider Ellis Mckeon DO Attending Provider [phone] CARLOS RAMOS Attending Unavailable Ellis Mckeon Attending Unavailable Ellis Mckeon Admitting Unavailable Medications Current Medications Medication Drug Class(es) [...] Vit-Fe Fumarate-FA ( Vitamin) 27-0.8 MG tablet (4 sources) Vit-Fe Fumarate-FA ( Vitamin) 27-0.8 MG [...] 08-09-2022 Chronic Other aftercare (1 source) Other terminal makeup operator (current) drug therapy; Translations: [OTH SKILLED NURSING CURRENT DRUG THERAPY] Onset: 03-11-2023 Episodic Other aftercare (1 source) H/O: miscarriage; Translations: [Encounter for other specified aftercare] Onset: 12-19-2024 12-19-2024 Episodic Other circulatory disease (1 source) Other [...] Name Value Interpretation Reference Range Facility ALL TYPE AND SCREENon 2024 ABO and Rh group Nom (Bld) Blood group A Rh(D) positive [facility] , CLINISYKY [facility] Urine Cultureon 12-18-2024 Bacteria identified Cx Nom (U) ORGANISM: Escherichia coli (O:ESCCOL) [place] Count 20,000 PERFORMED BY: [facility] [address] [place] [address] PATHOLOGIST OPERATIONS INSPECTOR SARAH HEWITT M.D. Normal [facility] Comment on above: Performed By: #### C UU #### [facility] [address] ALL CBC WITH AUTO DIFFon BASOPHILS ABSOLUTE AUTO 0 [facility] Basophils/100 WBC (Bld) 0.2 % 0.2 - 2.0 % [facility] Eosinophils/100 WBC (Bld) 1.5 % 0.9 - 7.0 % [facility] Erythrocyte distribution width (RBC) [Ratio] 11.9 % 11.0 - 15.0 % [facility] Hematocrit (Bld) [Volume fraction] 33.9 % Low 36.0 - 48.0 % [facility] Hemoglobin (Bld) [Mass/Vol] 11.2 g/dL Low 12.0 - 16.0 g/dL [facility] IMMATURE GRANULOCYTES ABS AUTO 0.03 [facility] Immature granulocytes/100 WBC (Bld) 0.3 % 0.0 - 0.5 % [facility] Interpretation and review of laboratory results Abnormal [facility] LYMPHOCYTES ABSOLUTE AUTO 1.9 [facility] Lymphocytes/100 WBC (Bld) 21.3 % 20.5 - 60.0 % [facility] MCH (RBC) [Entitic mass] 29.4 pg 26.7 - 34.0 pg [facility] MCHC (RBC) [Mass/Vol] 33 g/dL 29.9 - 35.2 g/dL [facility] MCV (RBC) [Entitic vol] 89 fL 81.0 - 99.0 fL [facility] MONOCYTES ABSOLUTE AUTO 0.8 [facility] Monocytes/100 WBC (Bld) 8.7 % 1.7 - 12.0 % [facility] NEUTROPHILS ABSOLUTE AUTO 5.9 [facility] Neutrophils/100 WBC (Bld) 68 % 43.0 - 75.0 % [facility] Platelet mean volume (Bld) [Entitic vol] 9.4 fL Low 9.5 - 13.5 fL [facility] EO # 0.1 [facility] PLT 355 [facility] RBC 3.81 Low [facility] WBC 8.7 [facility] HCG ( test) Ql (U)o n 11-18-2024 Interpretation and review of laboratory results Abnormal [facility] Preg Test, Ur Positive Negative [facility] Health care [facility] US OB TRANSVAGINALon 025 US [...] UA Negative Negative - 4(70) +++ mg/dL [facility] Blood, UA Positive Negative - 50 Otoniel/mcL [facility] Comment on above: trace Clarity, UA Cloudy [facility] Health[facility] re Color, UA Yellow [facility] Glucose, UA Negative Negative - 2000(110) ++++ mg/dL [facility] Interpretation and review of laboratory results Abnormal [facility] Ketones, UA Negative Negative - 160(16) ++++ mg/dL [facility] Leukocytes, UA Moderate Negative - 500+++ Forest/mcL [facility] Nitrite, UA Negative Negative - Positive [facility] pH, UA 6.5 5 - 9 [facility] e Protein, UA Positive Negative - 1999(20) ++++ mg/dL [facility] Comment on above: 100 Spec Grav, UA 1.02 1 - 1.03 [facility] Urobilinogen, UA 0.2 0.2 - 12 mg/dL [facility] e POCT Influenza A/Influenza B /SARS-COV-2 Veritoron 08-19-2024 External Poct Influenza A Antigen Negative [facility] External Poct Influenza B Antigen Negative [facility] SARS-CoV-2 (COVID-19) Ag IA.rapid Ql (Resp) Negative [facility] POCT rapid strep Aon 024 S. pyogenes Ag IA Ql (Unsp spec) Negative Negative [facility] CBC AND AUTO DIFFon 05-16-20 24 ABSOLUTE BASOPHIL 0.0 X10E9/L Normal 0.0-0.2 [facility] Comment on above: Performed By: #### C BCA, CMP, FEPR, TSHR, 2132-06 #### [facility] ([id number]) [address] [place] [address] ABSOLUTE NEUTROPHIL 7.0 X10E9/L High 1.5-6.[address] [facility] Comment on above: Performed By: #### C BCA, CMP, FEPR, TSHR, 2132-06 #### [facility] ([id number]) [address], [address] [place] [address] Basophils/100 WBC (Bld) 0.3 % Normal [facility] Comment on above: Performed By: #### C BCA, CMP, FEPR, TSHR, 2132-06 #### [facility] ([id number]) [address], [address] [place] [address] Eosinophils (Bld) [#/Vol] 0.1 10*3/uL Normal 0.0-0.[address] [facility] Comment on above: Performed By: #### C BCA, CMP, FEPR, TSHR, 2132-06 #### [facility] ([id number]) [address] [address] [place] [address] Eosinophils/100 WBC (Bld) 1.4 % Normal [facility] Comment on above: Performed By: #### C BCA, CMP, FEPR, TSHR, 2132-06 #### [facility] ([id number]) [address] [address] Erythrocyte distribution width (RBC) [Ratio] 13.3 % Normal 11.5-15.[address] [facility] Comment on above: Performed By: #### C BCA, CMP, FEPR, TSHR, 2132-06 #### [facility] ([id number]) [address] [address] Hematocrit (Bld) [Volume fraction] 38.8 % Normal 35-[address] [facility] Comment on above: Performed By: #### C BCA, CMP, FEPR, TSHR, 2132-06 #### [facility] ([id number]) [address] [address] [place] [address] Hemoglobin (Bld) [Mass/Vol] 13.0 g/dL Normal 11.7-15.[address] [facility] Comment on above: Performed By: #### C BCA, CMP, FEPR, TSHR, 2132-06 #### [facility] ([id number]) [address] [address] Lymphocytes (Bld) [#/Vol] 2.4 10*3/uL Normal 1.0-3.[address] [facility] Comment on above: Performed By: #### C BCA, CMP, FEPR, TSHR, 2132-06 #### [facility] ([id number]) [address] [address] [place] [address] Lymphocytes/100 WBC (Bld) 23.1 % Normal [facility] Comment on above: Performed By: #### C BCA, CMP, FEPR, TSHR, 2132-06 #### [facility] ([id number]) [address], [address] [place] [address] MCH (RBC) [Entitic mass] 30.0 pg Normal 27-[address] [facility] Comment on above: Performed By: #### C BCA, CMP, FEPR, TSHR, 2132-06 #### [facility] ([id number]) [address], [address] [place] [address] MCHC (RBC) [Mass/Vol] 33.5 g/dL Normal 32-[address] [facility] Comment on above: Performed By: #### C BCA, CMP, FEPR, TSHR, 2132-06 #### [facility] ([id number]) [address] [facility] [address] [place] [address] MCV (RBC) [Entitic vol] 90 fL Normal 80-[address] [facility] Comment on above: Performed By: #### C BCA, CMP, FEPR, TSHR, 2132-06 #### [facility] ([id number]) [address], [address] [place] [address] Monocytes (Bld) [#/Vol] 0.7 10*3/uL Normal 0-0.[address] [facility] Comment on above: Performed By: #### C BCA, CMP, FEPR, TSHR, 2132-06 #### [facility] ([id number]) [address] [address] [place] [address] Monocytes/100 WBC (Bld) 7.0 % Normal [facility] Comment on above: Performed By: #### C BCA, CMP, FEPR, TSHR, 2132-06 #### [facility] ([id number]) [address], [address] [place] [address] Neutrophils/100 WBC (Bld) 68.2 % Normal [facility] Comment on above: Performed By: #### C BCA, CMP, FEPR, TSHR, 2132-06 #### [facility] ([id number]) [address], [facility] [address] [place] [address] Platelet mean volume (Bld) [Entitic vol] 8.3 fL Normal 7-[address] [facility] Comment on above: Performed By: #### C BCA, CMP, FEPR, TSHR, 2132-06 #### [facility] ([id number]) [address] [address] Platelets (Bld) [#/Vol] 348 10*3/uL Normal 150-[address] [facility] Comment on above: Performed By: #### C BCA, CMP, FEPR, TSHR, 2132-06 #### [facility] ([id number]) [address] [facility] [address] [place] [address] RBC COUNT 4.33 X10E12/L Normal 3.80-5.[address] [facility] Comment on above: Performed By: #### C BCA, CMP, FEPR, TSHR, 2132-06 #### [facility] ([id number]) [address] [address] WBC (Bld) [#/Vol] 10.2 10*3/uL Normal 4.0-11.0 [facility] Comment on above: Performed By: #### C BCA, CMP, FEPR, TSHR, 2132-06 #### [facility] ([id number]) [address], [facility] [address] [place] [address] COMPREHENSIVE METABOLIC PANE Julio C 05-16-2024 Albumin [Mass/Vol] 4.7 g/dL Normal 3.2-5.3 [facility] Comment on above: Performed By: #### C BCA, CMP, FEPR, TSHR, 2132-06 #### [facility] ([id number]) [address], [address] [place] [address] ALP [Catalytic activity/Vol] 94 U/L Normal 39-[address] [facility] Comment on above: Performed By: #### C BCA, CMP, FEPR, TSHR, 2132-06 #### [facility] ([id number]) [address], [address] [place] [address] ALT [Catalytic activity/Vol] 16 U/L Normal 0-[address] [facility] Comment on above: Performed By: #### C BCA, CMP, FEPR, TSHR, 2132-06 #### [facility] ([id number]) [address], [address] [place] [address] Anion gap [Moles/Vol] 9 mmol/L Normal 5-[address] [facility] Comment on above: Performed By: #### C BCA, CMP, FEPR, TSHR, 2132-06 #### [facility] ([id number]) [address], [address] [place] [address] AST [Catalytic activity/Vol] 23 U/L Normal 0-[address] [facility] Comment on above: Performed By: #### C BCA, CMP, FEPR, TSHR, 2132-06 #### [facility] ([id number]) [address], [address] [place] [address] Bilirubin [Mass/Vol] 0.2 mg/dL Low 0.3-1.[address] [facility] Comment on above: Performed By: #### C BCA, CMP, FEPR, TSHR, 2132-06 #### [facility] ([id number]) [address], [address] [place] [address] Calcium [Mass/Vol] 9.8 mg/dL Normal 8.5-10.5 [facility] Comment on above: Performed By: #### C BCA, CMP, FEPR, TSHR, 2132-06 #### [facility] ([id number]) [address], [address] [place] [address] Chloride [Moles/Vol] 103 mmol/L Normal 98-[address] [facility] Comment on above: Performed By: #### C BCA, CMP, FEPR, TSHR, 2132-06 #### [facility] ([id number]) [address], [address] [place] [address] CO2 [Moles/Vol] 27 mmol/L Normal 22-[address] [facility] Comment on above: Performed By: #### C BCA, CMP, FEPR, TSHR, 2132-06 #### [facility] ([id number]) [address], [address] [place] [address] Creatinine [Mass/Vol] 0.74 mg/dL Normal 0.40-1.[address] [facility] Comment on above: Result Comment: METH OD TRACEABLE TO IDMS STANDARD Performed By: #### C BCA, CMP, FEPR, TSHR, 2132-06 #### [facility] ([id number]) [address], [address] [place] [address] eGFR (CKD-EPI) NON-RACE DEPENDENT >90 Normal >[address] [facility] Comment on above: Result Comment: Reported eGFR is based on the CKD-EPI 2020 equation that does not use a race coefficient. Performed By: #### C BCA, CMP, FEPR, TSHR, 2132-06 #### [facility] ([id number]) [address], [address] [place] [address] Glucose [Mass/Vol] 84 mg/dL Normal 65-99 [facility] Comment on above: Performed By: #### C BCA, CMP, FEPR, TSHR, 2132-06 #### [facility] ([id number]) [address], [address] [place] [address] Potassium [Moles/Vol] 4.0 mmol/L Normal 3.5-5.[address] [facility] Comment on above: Performed By: #### C BCA, CMP, FEPR, TSHR, 2132-06 #### [facility] ([id number]) [address], [address] [place] [address] Protein [Mass/Vol] 7.7 g/dL Normal 6.0-8.0 [facility] Comment on above: Performed By: #### C BCA, CMP, FEPR, TSHR, 2132-06 #### [facility] ([id number]) [address], [address] [place] [address] Sodium [Moles/Vol] 139 mmol/L Normal 134-146 [facility] Comment on above: Performed By: #### C BCA, CMP, FEPR, TSHR, 2132-06 #### [facility] ([id number]) [address], [address] [place] [address] Urea nitrogen [Mass/Vol] 16 mg/dL Normal 5-[address] [facility] Comment on above: Performed By: #### C BCA, CMP, FEPR, TSHR, 2132-06 #### [facility] ([id number]) [address], [address] [place] [address] IRON PROFILEon 05-16-2024 Iron [Mass/Vol] 88 ug/dL Normal 50-[address] [facility] Comment on above: Performed By: #### C BCA, CMP, FEPR, TSHR, 2132-06 #### [facility] ([id number]) [address], [address] [place] [address] IRON BINDING 505 ug/dL High 250-[address] [facility] Comment on above: Performed By: #### C BCA, CMP, FEPR, TSHR, 2132-06 #### [facility] ([id number]) [address], [address] [place] [address] IRON SATURATION 17 % SATURATION Normal 15-[address] [facility] Comment on above: Performed By: #### C BCA, CMP, FEPR, TSHR, 2132-06 #### [facility] ([id number]) [address], [address] [place] [address] TSH WITH REFLEXon 05-16-2024 TSH 2.05 uIU/mL Normal 0.49-4.[address] [facility] Comment on above: Performed By: #### C BCA, CMP, FEPR, TSHR, 2132-06 #### [facility] ([id number]) [address] [place] [address] VITAMIN B12on 05-16-2024 Cobalamin (Vitamin B12) [Mass/Vol] 334 pg/mL Normal 180-[address] [facility] Comment on above: Performed By: #### C BCA, CMP, FEPR, TSHR, 2132-06 #### [facility] ([id number]) [address], [address] [place] [address] POCT Influenza A/Influenza B /SARS-COV-2 Veritoron 01-25-2024 External Poct Influenza A Antigen Negative [facility] External Poct Influenza B Antigen Negative [facility] SARS-CoV-2 (COVID-19) Ag IA.rapid Ql (Resp) Negative [facility] POCT rapid strep Aon 024 S. pyogenes Ag IA Ql (Unsp spec) Negative Negative [facility] PRBC LEUKOREDUCEDon 03-08-20 23 ABO and Rh group Nom (Bld) Cross Match Result Compatible Unit Blood Type A Pos Unit Number [id number] Status Information Released Specimen Exp Date [id number] Product ID Red Blood Cells Product Code [id number] Cross Match Result Compatible Unit Blood Type A Pos Unit Number [id number] Status Information Issued Product ID Red Blood Cells Product Code [id number] Issue Date/Time [id number] [facility] Comment on above: Performed By: #### P RBC #### [facility] [address] [place] [address] Dr. Paula Hernandez CULTURE URINEon 03-07-2023 CULTURE [...] F Trimethoprim/Sulfamet hoxazole <=20 S F Normal [facility] Comment on above: Performed By: #### U RCX #### [facility] [address] [place] [address] Dr. Paula Hernandez PRBC LEUKOREDUCEDon 03-07-20 23 ABO and Rh group Nom (Bld) Cross Match Result Compatible Unit Blood Type A Pos Unit Number [id number] Status Information Released Specimen Exp Date [id number] Product ID Red Blood Cells Product Code [id number] Normal [facility] Comment on above: Performed By: #### P RBC #### [facility] [address] [place] [address] Dr. Paula Hernandez CBC AUTO DIFFon 03-06-2023 BASO # 0.0 103/ul Normal 0.0-0.1 [facility] Comment on above: Performed By: #### C BC ####[facility] [address] [place], [place] [address]DrKiara Hernandez Basophils/100 WBC (Bld) 0.2 % Normal 0.2-2.0 [facility] Comment on above: Performed By: #### C BC ####[facility] [address] [place], [place] [address]DrKiara Hernandez EO # 0.1 103/ul Normal 0.0-0.7 [facility] Comment on above: Performed By: #### C BC ####[facility] [address] [place], [place] [address]Dr. Paula Hernandez Eosinophils/100 WBC (Bld) 0.4 % Critically low 0.9-7.0 [facility] Comment on above: Performed By: #### C BC ####[facility] [address] [place] [address]Dr. Paula Hernandez Erythrocyte distribution width (RBC) [Ratio] 13.9 % Normal 11.0-15.0 [facility] Comment on above: Performed By: #### C BC ####[facility] [address] [place] [address]Dr. Paula Hernandez Hematocrit (Bld) [Volume fraction] 21.1 % Critically low 36.0-48.0 [facility] Comment on above: Performed By: #### C BC ####[facility] [address] [place] [address]Dr. Paula Hernandez Hemoglobin (Bld) [Mass/Vol] 6.5 g/dL Critically low 12.0-16.0 [facility] Comment on above: Performed By: #### C BC ####[facility] [address] [place] [address]Dr. Paula Hernandez IG # 0.22 10e3/ul Critically high 0.00-0.03 [facility] Comment on above: Performed By: #### C BC ####[facility] [address] [place] [address]Dr. Paula Hernandez IG % 1.2 % Critically high 0.0-0.5 [facility] Comment on above: Performed By: #### C BC ####[facility] [address] [place] [address]Dr. Paula Hernandez LYMPH # 2.7 103/ul Normal 1.2-3.8 [facility] Comment on above: Performed By: #### C BC ####[facility] [address] [place], [place] [address]Dr. Paula Hernandez Lymphocytes/100 WBC (Bld) 14.2 % Critically low 20.5-60.0 [facility] Comment on above: Performed By: #### C BC ####[facility] [address] [place] [id number]. Paula Hernandez MANUAL DIFF REQ NO Normal [facility] Comment on above: Performed By: #### C BC ####[facility] [address] [place] [id number]. Paula Hernandez MCH (RBC) [Entitic mass] 26.2 pg Critically low 26.7-34.0 [facility] Comment on above: Performed By: #### C BC ####[facility] [address] [place] [address]Dr. Paula Hernandez MCHC (RBC) [Mass/Vol] 30.8 g/dL Normal 29.9-35.2 [facility] Comment on above: Performed By: #### C BC ####[facility] [address] [place] [address]Dr. Paula Hernandez MCV (RBC) [Entitic vol] 85.1 fL Normal 81.0-99.0 [facility] Comment on above: Performed By: #### C BC ####[facility] [address] [place] [id number]. Paula David MONO # 1.4 103/ul Critically high 0.3-0.8 [facility] Comment on above: Performed By: #### C BC ####[facility] [address] [place] [address]Dr. Paula David Monocytes/100 WBC (Bld) 7.3 % Normal 1.7-12.0 [facility] Comment on above: Performed By: #### C BC ####[facility] [address] [place] [id number]. Paula Hernandez NEUT # 14.5 103/ul Critically high 1.4-6.5 [facility] Comment on above: Performed By: #### C BC ####[facility] [address] [place] [phone]. Paula Hernandez Neutrophils/100 WBC (Bld) 76.7 % Critically high 43.0-75.0 [facility] Comment on above: Performed By: #### C BC ####[facility] [address] [place] [id number]. Paula Hernandez Platelet mean volume (Bld) [Entitic vol] 9.5 fL Normal 9.5-13.5 [facility] Comment on above: Performed By: #### C BC ####[facility] [address] [place] [id number]. Paula Hernandez PLT 378 103/ul Normal 150-450 [facility] Comment on above: Performed By: #### C BC ####[facility] [address] [place] [phone]. Paula Hernandez RBC 2.48 106/ul Critically low 4.20-5.40 [facility] Comment on above: Performed By: #### C BC ####[facility] [address] [place] [phone]. Paula Hernandez WBC 19.0 103/ul Critically high 4.0-11.0 [facility] Comment on above: Performed By: #### C BC ####[facility] [address] [place] [phone]. Paula Hernandez CBC AUTO DIFFon 03-05-2023 BASO # 0.0 103/ul Normal 0.0-0.1 [facility] Comment on above: Performed By: #### C BC ####[facility] [address] [place] [id number]. Paula Hernandez Basophils/100 WBC (Bld) 0.4 % Normal 0.2-2.0 [facility] Comment on above: Performed By: #### C BC ####[facility] [address] [place] [id number]. Paula Hernandez EO # 0.1 103/ul Normal 0.0-0.7 [facility] Comment on above: Performed By: #### C BC ####[facility] [address] [place] [phone]. Paula Hernandez Eosinophils/100 WBC (Bld) 1.3 % Normal 0.9-7.0 [facility] Comment on above: Performed By: #### C BC ####[facility] [address] [place] [phone]. Paula Hernandez Erythrocyte distribution width (RBC) [Ratio] 14.2 % Normal 11.0-15.0 [facility] Comment on above: Performed By: #### C BC ####[facility] [address] [place] [address]Dr. Paula Hernandez Hematocrit (Bld) [Volume fraction] 24.8 % Critically low 36.0-48.0 [facility] Comment on above: Performed By: #### C BC ####[facility] [address] [place] [address]Dr. Paula Hernandez Hemoglobin (Bld) [Mass/Vol] 7.7 g/dL Critically low 12.0-16.0 [facility] Comment on above: Performed By: #### C BC ####[facility] [address] [place] [address]Dr. Paula Hernandez IG # 0.08 10e3/ul Critically high 0.00-0.03 [facility] Comment on above: Performed By: #### C BC ####[facility] [address] [place] [address]Dr. Paula Hernandez IG % 0.8 % Critically high 0.0-0.5 [facility] Comment on above: Performed By: #### C BC ####[facility] [address] [place] [address]Dr. Paula Hernandez LYMPH # 1.9 103/ul Normal 1.2-3.8 [facility] Comment on above: Performed By: #### C BC ####[facility] [address] [place] [address]Dr. Paula Hernandez Lymphocytes/100 WBC (Bld) 18.1 % Critically low 20.5-60.0 [facility] [facility] Comment on above: Performed By: #### C BC ####[facility] [address] [place] [address]Dr. Paula Hernandez MANUAL DIFF REQ NO Normal [facility] Comment on above: Performed By: #### C BC ####[facility] [address]cy[address] [place] [id number]. Paula David MCH (RBC) [Entitic mass] 26.3 pg Critically low 26.7-34.0 [facility] Comment on above: Performed By: #### C BC ####[facility] Ydjdsqwtoj[address] [place] [address]Dr. Paula David MCHC (RBC) [Mass/Vol] 31.0 g/dL Normal 29.9-35.2 [facility] Comment on above: Performed By: #### C BC ####[facility] Htcb[address]qtbw[address] [place] [id number]. Paula Hernandez MCV (RBC) [Entitic vol] 84.6 fL Normal 81.0-99.0 [facility] Comment on above: Performed By: #### C BC ####[facility] Qvullbsixv[address] [place], [place] [address]Dr. Paula Hernandez MONO # 1.2 103/ul Critically high 0.3-0.8 [facility] Comment on above: Performed By: #### C BC ####[facility] Pufpzsetvx[address] [place], [place] [address]Dr. Paula Hernandez Monocytes/100 WBC (Bld) 11.7 % Normal 1.7-12.0 [facility] Comment on above: Performed By: #### C BC ####[facility] Tdbxvemlxf[address] [place], [place] [address]Dr. Paula Hernandez NEUT # 7.0 103/ul Critically high 1.4-6.5 [facility] Comment on above: Performed By: #### C BC ####[facility] Cicnjbgalf[address] [place], [place] [address]Dr. Paula Hernandez Neutrophils/100 WBC (Bld) 67.7 % Normal 43.0-75.0 [facility] Comment on above: Performed By: #### C BC ####[facility] Adsosvjusc[address] [place], [place] [address]Dr. Paula Hernandez Platelet mean volume (Bld) [Entitic vol] 9.5 fL Normal 9.5-13.5 [facility] Comment on above: Performed By: #### C BC ####[facility] Vrhynngodv19[address] [place], [place] [address]Qu. Paula Hernandez PLT 427 103/ul Normal 150-450 [facility] Comment on above: Performed By: #### C BC ####[facility] Zlftzaepdx6865 [place], [place] [address]Zc. Paula Hernandez RBC 2.93 106/ul Critically low 4.20-5.40 [facility] Comment on above: Performed By: #### C BC ####[facility] Mrvgdgpqzw4799 [place], [place] [address]Ku. Paula Hernandez WBC 10.3 103/ul Normal 4.0-11.0 [facility] Comment on above: Performed By: #### C BC ####[facility] [address]exq[address]tdov[address] [place] [id number]. Paula Hernandez DRUG SCREEN RAPID (URINE)on 03-05-2023 AMP Negative Normal NEGATIVE [facility] Comment on above: Performed By: #### D RUGRPD ####[facility] Ysvrbnxsio[address] [place] [id number]. Paula Hernandez BAR Negative Normal NEGATIVE [facility] Comment on above: Performed By: #### D RUGRPD ####[facility] [address]ud[address] [place] [id number]. Paula Hernandez BUP Negative Normal NEGATIVE [facility] Comment on above: Performed By: #### D RUGRPD ####[facility] Qtnelwtknb[address] [place] [id number]. Paula Hernandez BZO Negative Normal NEGATIVE [facility] Comment on above: Performed By: #### D RUGRPD ####[facility] Gaktylfwxj[address] [place] [id number]. Paula Hernandez SHAHID Negative Normal NEGATIVE [facility] Comment on above: Performed By: #### D RUGRPD ####[facility] Lxjbxpdfum[address] [place] [id number]. Paula Hernandez CUT-OFFS SEE BELOW Normal [facility] Comment on above: Result Comment: AMP (Amphetamine): 500ng/mL, BAR (Barbituates): 200 ng/mL, BZO (Benzodiazepines): 150 ng/mL, BUP (Buprenorphine): 10 ng/mL, SHAHID (Cocaine): 150 ng/mL, mAMP (Methamphetamine): 500 ng/mL, MTD (Methadone): 200 ng/mL, OPI (Opiates): 100 ng/mL, OXY (Oxycodone): 100 ng/mL, PCP (Phencyclidine): 25 ng/mL, PPX (Propoxyphene): 300 ng/mL, THC (Cannabinoids): 50 ng/mL, TCA (Trycyclic Antidepressants): 300 ng/mL Performed By: #### D RUGRPD ####[facility] [address]wszlzccy[address] [place], [place] [address]Dr. [facility] DR[facility] CUT HEADER DRUG CLASS TEST SYSTEM CUT-OFF CONCENTRATIONS ARE FOLLOWS: Normal [facility] Comment on above: Performed By: #### D RUGRPD ####[facility] Yjkfwfpfmd[address] [place], [place] [address]Dr. Paula Hernandez mAMP Negative Normal NEGATIVE [facility] Comment on above: Performed By: #### D RUGRPD ####[facility] Cyzoujhmnm[address] [place], [place] [address]Dr. Yolandafrance [facility] MTD Negative Normal NEGATIVE [facility] Comment on above: Performed By: #### D RUGRPD ####[facility] Itgkbjlzog[address] [place], [place] [address]Dr. [facility] OPI Negative Normal NEGATIVE [facility] Comment on above: Performed By: #### D RUGRPD ####[facility] Djxhmkxnun[address] [place], [place] [address]Dr. Paula Hernandez OXY Negative Normal NEGATIVE [facility] Comment on above: Performed By: #### D RUGRPD ####[facility] Yqroshcgmf[address] [place], [place] [address]Dr. [facility] PCP Negative Normal NEGATIVE [facility] Comment on above: Performed By: #### D RUGRPD ####[facility] Dddllrfozk[address] [place], [place] [address]Dr. [facility]Sh[facility] PPX Negative Normal NEGATIVE [facility] Comment on above: Performed By: #### D RUGRPD ####[facility] [address] [place] [address]DrKiara Hernandez TCA Negative Normal NEGATIVE [facility] Comment on above: Performed By: #### D RUGRPD ####[facility] [address] [place] [id number] Hernandez THC Negative Normal NEGATIVE [facility] Comment on above: Performed By: #### D RUGRPD ####[facility] [address] [place] [address]DrKiara Hernandez PRBC LEUKOREDUCEDon 03-05-20 ABO and Rh group Nom (Bld) Cross Match Result Compatible Unit Blood Type A Neg Unit Number [id number] Status Information Released Specimen Exp Date [id number] Product ID Red Blood Cells Product Code [id number] Cross Match Result Compatible Unit Blood Type A Pos Unit Number [id number] Status Information Released Specimen Exp Date Product ID Red Blood Cells Product Code [id number] Normal [facility] Comment on above: Performed By: #### P RBC #### [facility] [address] [address] [address] Paula Hernandez TYPE AND SCREENon 03-05-2023 TYPE AND SCREEN Negative Normal [facility] Comment on above: Performed By: #### T NS ####[facility] Clluwcwexb[address] [place], [place] [address]Dr. Paula Hernandez UA (CLEAN/CATCH) CANDY CUTTER HAND/MICRO I F IND.on 03-05-2023 Bilirubin Ql (U) Negative Normal NEGATIVE [facility] Comment on above: Performed By: #### U RCX #### [facility] [address] [address] [address] Paula Hernandez Clarity (U) CLEAR Normal CLEAR [facility] Comment on above: Performed By: #### U RCX #### [facility] [address] [address] [address] Paula Hernandez Color (U) LT. YELLOW Normal YELLOW [facility] Comment on above: Performed By: #### U RCX #### [facility] [address] [address] [address] Paula Hernandez Glucose Ql (U) Negative Normal NEGATIVE [facility] Comment on above: Performed By: #### U RCX #### [facility] [address] [address] [address] Paula Hernandez Hemoglobin Ql (U) Negative Normal NEGATIVE [facility] Comment on above: Performed By: #### U RCX #### [facility] [address] [address] [address] Paula Hernandez Ketones Ql (U) Negative Normal NEGATIVE [facility] Comment on above: Performed By: #### U RCX #### [facility] [address] [address] [address] Paula Hernandez LEUKOCYTES LARGE Abnormal NEGATIVE [facility] Comment on above: Performed By: #### U RCX #### [facility] [address] [address] [address] Paula Hernandez Nitrite Ql (U) Positive Abnormal NEGATIVE [facility] Comment on above: Performed By: #### U RCX #### [facility] [address] [address] [address] Paula Hernandez pH (U) 7.0 [pH] Normal 5-9 [facility] Comment on above: Performed By: #### U RCX #### [facility] [address] [address] [address] Paula Hernandez SPEC GRAVITY 1.010 Normal 1.005-<=1.025 [facility] Comment on above: Performed By: #### U RCX #### [facility] [address] [address] [address] Paula Hernandez UA PROTEIN Negative Normal NEGATIVE/ TRACE [facility] Comment on above: Performed By: #### U RCX #### [facility] [address] [place] [address] Dr. Paula Hernandez UR MICRO IND INDICATED Normal [facility] Comment on above: Performed By: #### U RCX #### [facility] [address] [address] [address] Paula Hernandez Urobilinogen Qn (U) 0.2 {Alisia'U}/dL Normal 0.2 - 1. 0 [facility] Comment on above: Performed By: #### U RCX #### [facility] [address] [place] [address] Dr. Paula Hernandez URINE MICROSCOPIC ONLYon BACTERIA MODERATE Abnormal NONE SEEN [facility] Comment on above: Performed By: #### U RCX #### [facility] [address] [place] [address] Dr. Paula Hernandez Bacteria identified Cx Nom (U) INDICATED Normal [facility] Comment on above: Performed By: #### U RCX #### [facility] [address] [place] [address] Dr. Paula Hernandez CAST NONE SEEN Normal NONE SEEN [facility] Comment on above: Performed By: #### U RCX #### [facility] [address] [place] [address] Dr. Paula Hernandez Crystals LM Nom (Urine sed) NONE SEEN Normal NONE SEEN [facility] Comment on above: Performed By: #### U RCX #### [facility] [address] [place] [address] Dr. Paula Hernandez Epithelial cells LM Ql (Urine sed) FEW Abnormal NONE SEEN /RARE [facility] Comment on above: Performed By: #### U RCX #### [facility] [address] [place] [address] Dr. Paula Hernandez MUCOUS NONE SEEN Normal NONE SEEN [facility] Comment on above: Performed By: #### U RCX #### [facility] [address] [place] [address] Dr. Paula Hernandez RBC 0-2 Normal 0-2 [facility] Comment on above: Performed By: #### U RCX #### [facility] [address] [place] [address] Dr. Paula Hernandez WBC 50-75 Abnormal NONE SEEN [facility] Comment on above: Performed By: #### U RCX #### [facility] [address] [place] [address] Dr. Paula Hernandez GROUP B STREP CULTUREon 01-24 S. agalactiae Ag Ql (Unsp spec) Culture Observations: NEGATIVE FOR GROUP B STREPTOCOCCUS. Normal [facility] Comment on above: Performed By: #### U RCX #### [facility] [address] [address] [address] Paula Hernandez GLUCOSE - 1HRon 12-17-2022 Glucose [Mass/Vol] 132 mg/dL Critically high 74-[address] [facility] Comment on above: Performed By: #### U RCX #### [facility] [address] [address] [address] Paula Hernandez US PREG GROWTHon 12-17-2022 [...] AP CASTILLO Date: 2022-12-17 15:11 Normal [facility] CULTURE URINEon 12-11-2022 CULTURE URINE Isolate 1 [...] F Trimethoprim/Sulfamet hoxazole <=20 S F Normal [facility] Comment on above: Performed By: #### U RCX ####[facility] [address] [place], [place] [address]KdDr. Paula Hernandez CBC AUTO DIFFon 12-09-2022 BASO # 0.0 103/ul Normal 0.0-0.1 [facility] Comment on above: Performed By: #### U RCX #### [facility] [address] [address] [address] Paula Hernandez Basophils/100 WBC (Bld) 0.2 % Normal 0.2-2.0 [facility] Comment on above: Performed By: #### U RCX #### [facility] [address] [address] [address] Paula Hernandez EO # 0.2 103/ul Normal 0.0-0.7 [facility] Comment on above: Performed By: #### U RCX #### [facility] [address] [address] [address] Paula Hernandez Eosinophils/100 WBC (Bld) 1.7 % Normal 0.9-7.0 [facility] Comment on above: Performed By: #### U RCX #### [facility] [address] [address] [address] Paula Hernandez Erythrocyte distribution width (RBC) [Ratio] 12.9 % Normal 11.0-15.0 [facility] Comment on above: Performed By: #### U RCX #### [facility] [address] [address] [address] Paula Hernandez Hematocrit (Bld) [Volume fraction] 26.4 % Critically low 36.0-48.0 [facility] Comment on above: Performed By: #### U RCX #### [facility] [address] [address] [address] Paula Hernandez Hemoglobin (Bld) [Mass/Vol] 8.9 g/dL Critically low 12.0-16.0 [facility] Comment on above: Performed By: #### U RCX #### [facility] [address] [place] [address] Dr. Paula Hernandez IG # 0.11 10e3/ul Critically high 0.00-0.03 [facility] Comment on above: Performed By: #### U RCX #### [facility] [address] [place] [address] Dr. Paula Hernandez IG % 0.9 % Critically high 0.0-0.5 [facility] Comment on above: Performed By: #### U RCX #### [facility] [address] [place] [address] Dr. Paula Hernandez LYMPH # 1.6 103/ul Normal 1.2-3.8 [facility] Comment on above: Performed By: #### U RCX #### [facility] [address] [place] [address] Dr. Paula Hernandez Lymphocytes/100 WBC (Bld) 13.0 % Critically low 20.5-60.0 [facility] Comment on above: Performed By: #### U RCX #### [facility] [address] [place] [address] Dr. Paula Hernandez MANUAL DIFF REQ NO Normal [facility] Comment on above: Performed By: #### U RCX #### [facility] [address] [place] [address] Dr. Paula Hernandez MCH (RBC) [Entitic mass] 30.6 pg Normal 26.7-34.0 [facility] Comment on above: Performed By: #### U RCX #### [facility] [address] [place] [address] Dr. Paula Hernandez MCHC (RBC) [Mass/Vol] 33.7 g/dL Normal 29.9-35.2 [facility] Comment on above: Performed By: #### U RCX #### [facility] [address] [place] [address] Dr. Paula Hernandez MCV (RBC) [Entitic vol] 90.7 fL Normal 81.0-99.0 [facility] Comment on above: Performed By: #### U RCX #### [facility] [address] [place] [address] Dr. Paula Hernandez MONO # 0.7 103/ul Normal 0.3-0.8 [facility] Comment on above: Performed By: #### U RCX #### [facility] [address] [place] [address] Dr. Paula Hernandez Monocytes/100 WBC (Bld) 5.5 % Normal 1.7-12.0 [facility] Comment on above: Performed By: #### U RCX #### [facility] [address] [place] [address] Dr. Paula Hernandez NEUT # 9.5 103/ul Critically high 1.4-6.5 [facility] Comment on above: Performed By: #### U RCX #### [facility] [address] [place] [address] Dr. Paula Hernandez Neutrophils/100 WBC (Bld) 78.7 % Critically high 43.0-75.0 [facility] Comment on above: Performed By: #### U RCX #### [facility] [address] [place] [address] Dr. Paula Hernandez Platelet mean volume (Bld) [Entitic vol] 9.4 fL Critically low 9.5-13.5 [facility] Comment on above: Performed By: #### U RCX #### [facility] [address] [place] [address] Dr. Paula Hernandez PLT 332 103/ul Normal 150-450 [facility] Comment on above: Performed By: #### U RCX #### [facility] [address] [place] [address] Dr. Paula Hernandez RBC 2.91 106/ul Critically low 4.20-5.40 [facility] Comment on above: Performed By: #### U RCX #### [facility] [address] [place] [address] Dr. Paula Hernandez WBC 12.1 103/ul Critically high 4.0-11.0 [facility] Comment on above: Performed By: #### U RCX #### [facility] [address] [address] [address] Paula BRANCH URINE PROFILEon 3 Bilirubin Ql (U) Negative Normal NEGATIVE [facility] Comment on above: Performed By: #### U MICRO, ERUR ####[facility] [address] [place] [address]Dr. Paula Hernandez Clarity (U) CLEAR Normal CLEAR [facility] Comment on above: Performed By: #### U MICRO, ERUR ####[facility] [address] [place] [address]Dr. Paula Hernandez Color (U) LT. YELLOW Normal YELLOW [facility] Comment on above: Performed By: #### U MICRO, ERUR ####[facility] [address] [place] [address]DrKiara FARRAR A micrscopic examination will be performed if indicated. Normal [facility] Comment on above: Performed By: #### U MICRO, ERUR ####[facility] [address] [place] [address]Dr. Paula Hernandez Glucose Ql (U) Negative Normal NEGATIVE [facility] Comment on above: Performed By: #### U MICRO, ERUR ####[facility] [address] [place] [address]Dr. Paula Hernandez Hemoglobin Ql (U) Negative Normal NEGATIVE [facility] Comment on above: Performed By: #### U MICRO, ERUR ####[facility] [address] [place] [address]Dr. Paula Hernandez Ketones Ql (U) Negative Normal NEGATIVE [facility] Comment on above: Performed By: #### U MICRO, ERUR ####[facility] [address]ml[address] [place] [address]Dr. Paula Hernandez LEUKOCYTES LARGE Abnormal NEGATIVE [facility] Comment on above: Performed By: #### U MICRO, ERUR ####[facility] [address]sc[address] [place] [address]Dr. Paula Hernandez Nitrite Ql (U) Positive Abnormal NEGATIVE [facility] Comment on above: Performed By: #### U MICRO, ERUR ####[facility] [address]ap[address] [place] [address]DrKiara Hernandez pH (U) 6.0 [pH] Normal 5-9 [facility] Comment on above: Performed By: #### U MICRO, ERUR ####[facility] Hz[address]dypm[address] [place] [address]DrKiara Hernandez SPEC GRAVITY 1.010 Normal 1.005-<=1.025 [facility] Comment on above: Performed By: #### U MICRO, ERUR ####[facility] Whchxbongh[address] [place], [place] [address]Dr. Paula Hernandez UA PROTEIN Negative Normal NEGATIVE/ TRACE [facility] Comment on above: Performed By: #### U MICRO, ERUR ####[facility] Mbtxwhocuo[address] [place], [place] [address]DrKiara Hernandez UR MICRO IND INDICATED Normal [facility] Comment on above: Performed By: #### U MICRO, ERUR ####[facility] Djjhuumtmg[address] [place], [place] [address]Dr. Paula Hernandez Urobilinogen Qn (U) 0.2 {Alisia'U}/dL Normal 0.2 - 1. 0 [facility] Comment on above: Performed By: #### U MICRO, ERUR ####[facility] [address]mb[address] [place], [place] [address]DrKiara Hernandez PROF CHEM 8 (BAS METB)on Anion gap [Moles/Vol] 12.5 mmol/L Normal [facility] Comment on above: Performed By: #### B MP ####[facility] Arjhomnhlr[address] [place], [place] [address]DrKiara Hernandez Calcium [Mass/Vol] 8.4 mg/dL Critically low 8.5-10.1 [facility] Comment on above: Performed By: #### B MP ####[facility] Yo[address]uvfipr[address] [place], [place] [address]DrKiara Hernandez Chloride [Moles/Vol] 100 mmol/L Normal 98-107 [facility] Comment on above: Performed By: #### B MP ####[facility] [address]ty[address] [place] [address]Dr. Yolandafrance David CO2 [Moles/Vol] 24.8 mmol/L Normal 21.0-32.0 [facility] Comment on above: Performed By: #### B MP ####[facility] Edzwfgmwgu[address] [place], [place] [address]Dr. Yolandafrance David Creatinine [Mass/Vol] 0.58 mg/dL Normal 0.55-1.02 [facility] Comment on above: Performed By: #### B MP ####[facility] Qhjabhjyto[address] [place], [place] [address]Dr. Paula Hernandez EGFR-AF SPANISH >60 Normal >=60 [facility] Comment on above: Performed By: #### B MP ####[facility] Jsexelvdal[address] [place], [place] [address]Dr. Yolandafrance David EGFR-NON AF SPANISH >60 Normal >=60 [facility] Comment on above: Performed By: #### B MP ####[facility] Dmgovlkwnj[address] [place], [place] [address]Dr. Paula Hernandez Glucose [Mass/Vol] 106 mg/dL Normal 74-106 [facility] Comment on above: Performed By: #### B MP ####[facility] [address]stm[address]gwm[address] [place], [place] [address]Dr. Paula Hernandez Potassium [Moles/Vol] 3.3 mmol/L Critically low 3.5-5.1 [facility] Comment on above: Performed By: #### B MP ####[facility] Zieymhoaui[address] [place], [place] [address]Dr. Paula Hernandez Sodium [Moles/Vol] 134 mmol/L Critically low 136-145 Th [facility] Comment on above: Performed By: #### B MP ####[facility] [address]rzflpjti[address] [place], [place] [address]Dr. Paula Hernandez Urea nitrogen [Mass/Vol] 7.0 mg/dL Normal 7.0-18.0 [facility] Comment on above: Performed By: #### B MP ####[facility] [address] [place] [address]Dr. Paula Hernandez Urea nitrogen/Creatinine [Mass ratio] 12.1 mg/mg Normal [facility] Comment on above: Performed By: #### B MP ####[facility] [address] [place] [id number]. Paula Hernandez URINE MICROSCOPIC ONLYon BACTERIA LARGE Abnormal NONE SEEN [facility] Comment on above: Performed By: #### U RCX #### [facility] [address] [address] [address] Paula Hernandez Bacteria identified Cx Nom (U) INDICATED Normal [facility] Comment on above: Performed By: #### U RCX #### [facility] [address] [place] [address] Dr. Paula Hernandez CAST NONE SEEN Normal NONE SEEN [facility] Comment on above: Performed By: #### U RCX #### [facility] [address] [place] [address] Dr. Paula Hernandez Crystals LM Nom (Urine sed) NONE SEEN Normal NONE SEEN [facility] Comment on above: Performed By: #### U RCX #### [facility] [address] [place] [address] Dr. Paula Hernandez Epithelial cells LM Ql (Urine sed) FEW Abnormal NONE SEEN /RARE [facility] Comment on above: Performed By: #### U RCX #### [facility] [address] [place] [address] Dr. Paula Hernandez MUCOUS NONE SEEN Normal NONE SEEN [facility] Comment on above: Performed By: #### U RCX #### [facility] [address] [place] [address] Dr. Paula Hernandez RBC NONE SEEN Abnormal 0-2 [facility] Comment on above: Performed By: #### U RCX #### [facility] [address] [place] [address] Dr. Paula Hernandez WBC 10-20 Abnormal NONE SEEN [facility] Comment on above: Performed By: #### U RCX #### [facility] [address] [address] [address] Paula Hernandez PAP ACOG PANEL 2: 30 to 65on 12-02-2022 . . Normal [facility] Comment on above: Result Comment: Perf ormed at: WB Performed By: #### [id number] ####[facility] [address] [address]Dr. Paula Hernandez Age Gdln ACOG Testing 30-65 Normal [facility] Comment on above: Performed By: #### [id number] ####[facility] [address] [address]DrKiara Hernandez DIAGNOSIS: Comment Normal [facility] Comment on above: Result Comment: NEGA TIVE FOR INTRAEPITHELIAL LESION OR MALIGNANCY. Performed at: WB Performed By: #### [id number] ####[facility] [address] [address]Dr. Paula Hernandez HPV Aptima Negative Normal Negative [facility] Comment on above: Result Comment: This nucleic acid amplification test detects fourteen high-risk HPV types (16,18,31,33,35,39,45,51,52,56,58,59,66,68) without differentiation. Performed at: =G Performed By: #### [id number] ####[facility] [address] [address]DrKiara Hernandez HPV Genotype Reflex Comment Normal [facility] Comment on above: Result Comment: Crit eria not met, HPV Genotype not performed. Performed at: WB Performed By: #### [id number] ####[facility] [address] [id number] Hernandez Methodology: Comment Normal [facility] Comment on above: Result Comment: This liquid based ThinPrep(R) pap test was screened with the use of an image guided system. Performed at: WB Performed By: #### [id number] ####[facility] [address] [address]DrKiara Hernandez Note: Comment Normal [facility] Comment on above: Result Comment: The Pap smear is a screening test designed to aid in the detection of premalignant and malignant conditions of the uterine cervix. It is not a diagnostic procedure and should not be used as the sole means of detecting cervical cancer. Both false-positive and false-negative reports do occur. . Performed at: WB Performed By: #### [id number] ####[facility] [address] [address]Dr. Paula Hernandez Performed by: Comment Normal [facility] Comment on above: Result Comment: Uma Tom, Customer Support Professional (ASCP) Performed at: WB Performed By: #### [id number] ####[facility] [address] [place], [place] [address]Dr. Paula Hernandez Specimen adequacy: Comment Normal [facility] Comment on above: Result Comment: Sati sfactory for evaluation. No endocervical component is identified. Performed at: WB Performed By: #### [id number] ####[facility] [address]ok[address] [place], [place] [address]Dr. Paula Hernandez CHLAMYDIA/GONOCOCCUS YAS (SW AB/URINE/PAPon 11-29-2022 Chlamydia trachomatis, YAS Negative Normal Negative [facility] Comment on above: Performed By: #### C T/NGNA ####[facility] Cbodretg[address] [place], [place] [address]Dr. Paula Hernandez Neisseria gonorrhoeae, YAS Negative Normal Negative [facility] Comment on above: Performed By: #### C T/NGNA ####[facility] W[address]vuvarvc[address] [place], [place] [address]Dr. Paula Hernandez VAGINITIS/VAGINOSIS DNA PROB Ketan 11-28-2022 Nirmala species Negative Normal Negative [facility] Comment on above: Performed By: #### V AGINT ####[facility] [address] [place], [place] [address]Dr. Paula Hernandez Gardnerella vaginalis Positive Abnormal Negative [facility] Comment on above: Performed By: #### V AGINT ####[facility] [address]th[address] [place], [place] [address]DrKiraa Hernandez Trichomonas vaginalis Negative Normal Negative [facility] Comment on above: Performed By: #### V AGINT ####[facility] [address] [place], [place] [address]JtKiara Hernandez US PREG ANATOMY SINGLEon US PREG [...] by: REINA OLGUIN Date: 2022-11-11 16:09 Normal [facility] AFP MATERNAL FOR SPINA BIFID Aon 10-22-2022 AFP MoM Normal [facility] Comment on above: Performed By: #### U RCX #### [facility] [address] [address] [address] Paula Hernandez AFP Value TNP [facility] Comment on above: Result Comment: Test not performed Performed By: #### U RCX #### [facility] [address] [address] [address] Paula Hernandez AFP, Serum for Spina Bifida [facility] Comment on above: Performed By: #### U RCX #### [facility] [address] [address] [address] Paula Hernandez Comment [facility] Comment on above: Performed By: #### U RCX #### [facility] [address] [address] [address] Paula Clay Age Collection Date [facility] Comment on above: Performed By: #### U RCX #### [facility] [address] [address] [address] Paula Hernandez Gestat, Age Based on [facility] Comment on above: Performed By: #### U RCX #### [facility] [address] [address] [address] Paula Hernandez Insulin Dep Diabetes [facility] Comment on above: Performed By: #### U RCX #### [facility] [address] [address] [address] Paula Hernandez Interpretation [place] [facility] Comment on above: Performed By: #### U RCX #### [facility] [address] [address] [address] Paula Hernandez Maternal Age at [age] [facility] Comment on above: Performed By: #### U RCX #### [facility] [address] [address] [address] Paula Hernandez Multiple Gestation [facility] Comment on above: Performed By: #### U RCX #### [facility] [address] [address] [address] Paula Hernandez OSBR Risk 1 IN [facility] Comment on above: Performed By: #### U RCX #### [facility] [address] [place] [address] Dr. Paula Hernandez [facility] Comment on above: Performed By: #### U RCX #### [facility] [address] [place] [address] Dr. Paula Hernandez [facility] Comment on above: Performed By: #### U RCX #### [facility] [address] [place] [address] Dr. Paula Hernandez Test Results: REFERT [facility] Comment on above: Result Comment: Plea se refer to the following specimen for additional lab results. See:[id number] Performed By: #### U RCX #### [facility] [address] [place] [address] Dr. Paula Hernandez [facility] Comment on above: Performed By: #### U RCX #### [facility] [address] [place] [address] Dr. Paula Hernandez Weight [facility] Comment on above: Performed By: #### U RCX #### [facility] [address] [place] [address] Dr. Paula Hernandez CULTURE URINEon 10-13-2022 CULTURE [...] S F Trimethoprim/Sulfamet hoxazole <=20 S F [facility] Comment on above: Performed By: #### U RCX #### [facility] [address] [place] [address] Dr. Paula Hernandez CBC W MANUAL DIFFon 10-11-20 22 ATYPICAL LYMPH # [facility] Comment on above: Performed By: #### C TARAH ####[facility] [address] [id number]. Paula Hernandez ATYPICAL LYMPH % Normal [facility] Comment on above: Performed By: #### C TARAH ####[facility] [address] [place], [place] [address]Nd. Yilan Hernandez BAND # 0.7 103/ul Critically high 0.0-0.3 [facility] Comment on above: Performed By: #### C TARAH ####[facility] [address] [id number]. Yilan Hernandez BAND % 4 % Normal 0-5 [facility] Comment on above: Performed By: #### C TARAH ####[facility] [address] [address]Dr. Paula Hernandez BASOM # 0.00 103/ul Normal 0.00-0.10 [facility] Comment on above: Performed By: #### C TARAH ####[facility] [address] [address]Dr. Yifrance Hernandez BASOM % 0.0 % Critically low 0.2-2.0 [facility] Comment on above: Performed By: #### C TARAH ####[facility] [address] [id number]. Yifrance Hernandez BLAST # Normal [facility] Comment on above: Performed By: #### C TARAH ####[facility] [address] [address]Dr. Yilan Hernandez BLAST % Normal [facility] Comment on above: Performed By: #### C TARAH ####[facility] [address] [id number]. Paula Hernandez CORRECTED WBC Normal 4.0-11.0 [facility] Comment on above: Performed By: #### C TARAH ####[facility] [address] [id number]. Yilan Hernandez EOS # 0.37 103/ul Normal 0.00-0.70 [facility] Comment on above: Performed By: #### Nelly RASCON ####[facility] [address] [place], [place] [address]Jg. Paula Hernandez EOS% 2.0 % Normal 0.9-7.0 [facility] Comment on above: Performed By: #### Nelly RASCON ####[facility] [address]fr[address] [place], [place] [address]Ss. Paula Hernandez HCT 29.8 % Critically low 36.0-48.0 [facility] Comment on above: Performed By: #### Nelly RASCON ####[facility] [address] [place], [place] [address]Bo. Paula Hernandez HGB 10.1 g/dl Critically low 12.0-16.0 [facility] Comment on above: Performed By: #### Nelly RASCON ####[facility] [address] [id number]. Paula Hernandez LYMPHM # 1.85 103/ul Normal 1.20-3.80 [facility] Comment on above: Performed By: #### Nelly RASCON ####[facility] [address] [place], [place] [address]Ll. Paula Hernandez LYMPHM% 10.0 % Critically low 20.5-60.0 [facility] Comment on above: Performed By: #### Nelly RASCON ####[facility] [address] [place], [place] [address]El. Paula Hernandez MCH 29.7 pg Normal 26.7-34.0 [facility] Comment on above: Performed By: #### Nelly RASCON ####[facility] [address]gp[address] [place], [place] [address]Aw. Paula Hernandez MCHC 33.9 g/dl Normal 29.9-35.2 [facility] Comment on above: Performed By: #### Nelly RASCON ####[facility] C[address]naencao[address] [place], [place] [address]Gg. Paula Hernandez MCV 87.6 fL Normal 81.0-99.0 [facility] Comment on above: Performed By: #### Nelly RASCON ####[facility] [address] [place], [place] [address]Ak. Paula Hernandez METAMYELOCYTE # Normal [facility] Comment on above: Performed By: #### C TARAH ####[facility] [address] [id number]. Paula Hernandez METAMYELOCYTE % Normal [facility] Comment on above: Performed By: #### C TARAH ####[facility] [address] [address]Dr. Paula Hernandez MONOM# 3.52 103/ul Critically high 0.30-0.80 [facility] Comment on above: Performed By: #### C TARAH ####[facility] [address] [id number]. Paula Hernandez MONOM% 19.0 % Critically high 1.7-12.0 [facility] Comment on above: Performed By: #### Nelly RASCON ####[facility] [address] [address]Dr. Paula Hernandez MPV 9.3 fL Critically low 9.5-13.5 [facility] Comment on above: Performed By: #### Nelly RASCON ####[facility] [address] [place], [place] [address]Dr. Paula Hernandez MYELOCYTE # Normal [facility] Comment on above: Performed By: #### Nelly RASCON ####[facility] [address] [id number]. Paula Hernandez MYELOCYTE % Normal [facility] Comment on above: Performed By: #### Nelly RASCON ####[facility] [address] [id number]. Paula Hernandez NRBC Normal [facility] Comment on above: Performed By: #### Nelly RASCON ####[facility] [address] [phone]. Paula Hernandez PLT 330 103/ul Normal 150-450 [facility] Comment on above: Performed By: #### Nelly RASCON ####[facility] K[address]awxx[address] [place], [place] [address]Gx. Paula Hernandez RBC 3.40 106/ul Critically low 4.20-5.40 [facility] Comment on above: Performed By: #### Nelly RASCON ####[facility] [address]zvuadn[address] [place], [place] [address]Wl. Paula Hernandez RDW 12.8 % Normal 11.0-15.0 [facility] Comment on above: Performed By: #### Nelly RASCON ####[facility] Rivq[address]uwtw13[address] [place], [place] [address]Hc. Paula Hernandez SEG # 12.03 103/ul Critically high 1.40-6.50 [facility] Comment on above: Performed By: #### Nelly RASCON ####[facility] Fmivhsmpbj40[address] [place], [place] [address]Mw. Paula Hernandez SEG % 65.0 % Normal 43.0-75.0 [facility] Comment on above: Performed By: #### Nelly RASCON ####[facility] Kfhjujqzur1627 [place], [place] [address]In. Paula Hernandez WBC 18.5 103/ul Critically high 4.0-11.0 [facility] Comment on above: Performed By: #### Nelly RASCON ####[facility] Toll[address]jor[address] [place], [place] [address]Gd. Paula Hernandez Covid-19 PCR (CVDTB)on 09-25 SARS-CoV-2 (COVID-19) RNA YAS+probe Ql (Unsp spec) Not detected Normal NOT DETECTED [facility] Comment on above: Result Comment: This test is not yet approved or cleared by the [place] FDA. When there are no FDA-approved or cleared tests available, and other criteria are met, FDA can make tests available under an emergency access mechanism called an Emergency Use Authorization (EUA). The EUA for this test is supported by the [place] of Health and Human Service's (HHS's) declaration [...] with SARS-CoV-2. Performed By: #### C VDTB ####[facility] [address] [address]Dr. Paula Hernandez ER URINE PROFILEon 2 Bilirubin Ql (U) Negative Normal NEGATIVE [facility] Comment on above: Performed By: #### Alma Rosa IRAHETA UMICRO ####[facility] [address] [place], [place] [address]Dr. Paula Hernandez Clarity (U) SL CLOUDY Abnormal CLEAR [facility] Comment on above: Performed By: #### Alma Rosa IRAHETA UMICRO ####[facility] V[address]in[address]wk[address] [place], [place] [address]Dr. Paula Hernandez Color (U) LT. YELLOW Normal YELLOW [facility] Comment on above: Performed By: #### Alma Rosa IRAHETA UMICRO ####[facility] Nyscshiolb[address] [place], [place] [address]Dr. Paula AGUILARD A micrscopic examination will be performed if indicated. Normal [facility] Comment on above: Performed By: #### Alma Rosa IRAHETA UMICRO ####[facility] [address]wk[address] [place], [place] [address]Dr. Paula Hernandez Glucose Ql (U) Negative Normal NEGATIVE [facility] Comment on above: Performed By: #### Alma Rosa IRAHETA UMICRO ####[facility] T[address]fsm[address] [place], [place] [address]Dr. Paula Hernandez Hemoglobin Ql (U) TRACE-INTACT Abnormal NEGATIVE [facility] Comment on above: Performed By: #### Alma Rosa IRAHETA, UMICRO ####[facility] [address] [address]Dr. Paula Hernandez Ketones Ql (U) 80 mg/dl Abnormal NEGATIVE [facility] Comment on above: Performed By: #### VALERIE MADRIGAL ####[facility] [address]cehq[address] [place], [place] [address]Dr. Paula Hernandez LEUKOCYTES SMALL Abnormal NEGATIVE [facility] Comment on above: Performed By: #### MAMADOU MADRIGALRO ####[facility] [address] [address]Dr. Paula Hernandez Nitrite Ql (U) Positive Abnormal NEGATIVE [facility] Comment on above: Performed By: #### MAMADOU MADRIGALRO ####[facility] [address] [place], [place] [address]Dr. Paula Hernandez pH (U) 6.0 [pH] Normal 5-9 [facility] Comment on above: Performed By: #### VALERIE MADRIGAL ####[facility] Leinonrubv[address] [place], [place] [address]Dr. Paula Hernandez Protein (U) [Mass/Vol] 100 mg/dL Abnormal NEGATIVE/ TRACE [facility] Comment on above: Performed By: #### VALERIE MADRIGAL ####[facility] [address]qll[address] [place], [place] [address]Dr. Paula Hernandez SPEC GRAVITY 1.020 Normal 1.005-<=1.025 [facility] Comment on above: Performed By: #### MAMADOU MADRIGALRO ####[facility] [address] [place], [place] [address]Dr. Paula Hernandez UR MICRO IND INDICATED Normal [facility] Comment on above: Performed By: #### VALERIE MADRIGAL ####[facility] [address]akndz[address] [place], [place] [address]Dr. Paula Hernandez Urobilinogen Qn (U) 0.2 {Alisia'U}/dL Normal 0.2 - 1. 0 [facility] Comment on above: Performed By: #### MAMADOU MADRIGALRO ####[facility] [address]fnbvbebly[address] [place], [place] [address]Dr. Paula Hernandez INFLUENZA A AND B AGon 10-11 INFLUANEGH SEE BELOW Normal [facility] Comment on above: Result Comment: Nega tive for Flu A protein angiten. Infection due to Flu A cannot be ruled out. Flu A angiten in the sample may be below the detection limit of the test. Performed By: #### I NFLUAB ####[facility] [address] [address]Dr. Paula Hernandez INFLUBNEGH SEE BELOW Normal [facility] Comment on above: Result Comment: Nega tive for Flu B protein antigen. Infection due to Flu B cannot be ruled out. Flu B antigen in the sample may be below the detection limit of the test. Performed By: #### I NFLUAB ####[facility] [address] [address]Dr. Paula Hernandez INFLUENZA A AG Negative Normal NEGATIVE SEE COMMENT [facility] Comment on above: Performed By: #### I NFLUAB ####[facility] [address] [place], [place] [address]Dr. Paula Hernandez INFLUENZA B AG Negative Normal NEGATIVE SEE COMMENT [facility] Comment on above: Performed By: #### I NFLUAB ####[facility] Y[address]up[address] [place], [place] [address]DrKiara Hernandez INTERNAL CONTROLS Within Normal Limits Normal Wi thin Normal Limits [facility] Comment on above: Performed By: #### I NFLUAB ####[facility] [address] [place], [place] [address]DrKiara Hernandez PROF 14(COMP METB)on 022 Albumin [Mass/Vol] 2.6 g/dL Critically low 3.4-5.0 [facility] Comment on above: Performed By: #### U RCX #### [facility] [address] [place] [address] Dr. Paula Hernandez Albumin/Globulin [Mass ratio] 0.6 {ratio} Normal [facility] Comment on above: Performed By: #### U RCX #### [facility] [address] [place] [address] Dr. Paula Hernandez ALP [Catalytic activity/Vol] 92 U/L Normal 46-116 [facility] Comment on above: Performed By: #### U RCX #### [facility] [address] [address] [address] Paula Hernandez ALT [Catalytic activity/Vol] 7 U/L Critically low 14-59 [facility] Comment on above: Performed By: #### U RCX #### [facility] [address] [address] [address] Paula Hernandez Anion gap [Moles/Vol] 13.7 mmol/L Normal [facility] Comment on above: Performed By: #### U RCX #### [facility] [address] [address] [address] Paula Hernandez AST [Catalytic activity/Vol] 10 U/L Critically low 15-37 [facility] Comment on above: Performed By: #### U RCX #### [facility] [address] [address] [address] Paula Hernandez Bilirubin [Mass/Vol] 0.3 mg/dL Normal 0.2-1.0 [facility] Comment on above: Performed By: #### U RCX #### [facility] [address] [address] [address] Paula Hernandez Calcium [Mass/Vol] 8.8 mg/dL Normal 8.5-10.1 [facility] Comment on above: Performed By: #### U RCX #### [facility] [address] [address] [address] Paula Hernandez Chloride [Moles/Vol] 98 mmol/L Normal 98-107 [facility] Comment on above: Performed By: #### U RCX #### [facility] [address] [address] [address] Paula Hernandez CO2 [Moles/Vol] 21.2 mmol/L Normal 21.0-32.0 [facility] Comment on above: Performed By: #### U RCX #### [facility] [address] [address] [address] Paula Hernandez Creatinine [Mass/Vol] 0.80 mg/dL Normal 0.55-1.02 [facility] Comment on above: Performed By: #### U RCX #### [facility] [address] [address] [address] Paula Hernandez EGFR-AF SPANISH >60 Normal >=60 [facility] Comment on above: Performed By: #### U RCX #### [facility] [address] [address] [address] Paula Hernandez EGFR-NON AF SPANISH >60 Normal >=60 [facility] Comment on above: Performed By: #### U RCX #### [facility] [address] [address] [address] Paula Hernandez Globulin (S) [Mass/Vol] 4.5 g/dL Normal [facility] Comment on above: Performed By: #### U RCX #### [facility] [address] [address] [address] Paula Hernandez Glucose [Mass/Vol] 100 mg/dL Normal 74-106 [facility] Comment on above: Performed By: #### U RCX #### [facility] [address] [address] [address] Paula Hernandez Potassium [Moles/Vol] 2.9 mmol/L Critically low 3.5-5.1 [facility] Comment on above: Performed By: #### U RCX #### [facility] [address] [place] [address] Dr. Paula Hernandez Protein [Mass/Vol] 7.1 g/dL Normal 6.4-8.2 [facility] Comment on above: Performed By: #### U RCX #### [facility] [address] [address] [address] Paula Hernandez Sodium [Moles/Vol] 130 mmol/L Critically low 136-145 [facility] Comment on above: Performed By: #### U RCX #### [facility] [address] [address] [address] Paula Hernandez Urea nitrogen [Mass/Vol] 8.0 mg/dL Normal 7.0-18.0 [facility] Comment on above: Performed By: #### U RCX #### [facility] [address] [address] [address] Paula Hernandez Urea nitrogen/Creatinine [Mass ratio] 10.0 mg/mg Normal [facility] Comment on above: Performed By: #### U RCX #### [facility] [address] [address] [address] Paula Hernandez URINE MICROSCOPIC ONLYon BACTERIA SMALL Abnormal NONE SEEN [facility] Comment on above: Performed By: #### Alma Rosa IRAHETA UMICRO ####[facility] [address] [address]Dr. Paula Hernandez Bacteria identified Cx Nom (U) INDICATED Normal [facility] Comment on above: Performed By: #### Alma Rosa IRAHETA UMICRO ####[facility] [address] [address]Dr. Paula Hernandez CAST NONE SEEN Normal NONE SEEN [facility] Comment on above: Performed By: #### E RUMiryam UMICRO ####[facility] [address] [address]DrKiara Hernandez Crystals LM Nom (Urine sed) NONE SEEN Normal NONE SEEN [facility] Comment on above: Performed By: #### Alma Rosa IRAHETA UMICRO ####[facility] [address] [address]Dr. Paula Hernandez Epithelial cells LM Ql (Urine sed) MODERATE Abnormal NONE SEEN /RARE [facility] Comment on above: Performed By: #### E RUMiryam UMICRO ####[facility] [address] [address]Dr. Paula Hernandez MUCOUS NONE SEEN Normal NONE SEEN [facility] Comment on above: Performed By: #### Alma Rosa RUMiryam UMICRO ####[facility] [address] [address]Dr. Paula Hernandez RBC NONE SEEN Abnormal 0-2 [facility] Comment on above: Performed By: #### E RUMiryam UMICRO ####[facility] [address] [address]Dr. Paula Hernandez WBC 2-5 Abnormal NONE SEEN [facility] Comment on above: Performed By: #### E VALERIE IRAHETA ####[facility] [address] [id number]. Paula Hernandez CULTURE URINEon 08-11-2022 CULTURE URINE [...] F Trimethoprim/Sulfamet hoxazole <=20 S F Normal [facility] Comment on above: Performed By: #### U RCX #### [facility] [address] [address] [address] Paula Hernandez HEP B SURFACE ANTIGEN SCREEN on 08-10-2022 HBsAg Screen Negative Normal Negative [facility] Comment on above: Performed By: #### U RCX #### [facility] [address] [address] [address] Paula Hernandez HEPATITIS C VIRUS AB W/ REFL EX QUANTon 08-10-2022 HCV AB <0.1 Normal 0.0-0.9 [facility] Comment on above: Performed By: #### H CVPCRR ####[facility] [address] [address]DrKiara Hernandez Interpretation: Comment Normal [facility] Comment on above: Result Comment: Nega tive Not infected with HCV, unless recent infection is suspected or other evidence exists to indicate HCV infection. Performed By: #### H CVPCRR ####[facility] [address] [place] [address]DrKiara Hernandez HIV 1 AND 2 WITH REFLEXon HIV Screen 4th Generation wRfx Non-Reactive Normal Non Reactive [facility] Comment on above: Result Comment: HIV Negative HIV-1/HIV-2 antibodies and HIV-1 p24 antigen were NOT detected. There is no laboratory evidence of HIV infection. Performed By: #### H IV12 ####[facility] [address] [address]Dr. Paula Hernandez RPR QUANTon 08-10-2022 Rapid Plasma Reagin, Quant Non-Reactive Normal NonRea<1:1 [facility] Comment on above: Result Comment: Plea se Note: This test does not meet current guidelines for screening and diagnosis of syphilis. This test is intended for following treatment response in patients being treated for syphilis infection. To screen for syphilis infection, a reflex cascade that includes both RPR and a treponema-specific assay should be utilized, such as Treponema pallidum (Syphilis) Screening [place] (019716) or Rapid Plasma Reagin (RPR) Test With Reflex to Quantitative RPR and Confirmatory Treponema pallidum Antibodies (031354). Performed By: #### R PRQ ####[facility] [address] [place], [place] [address]Dr. Paula Hernandez RUBELLA AB IGGon 08-10-2022 Rubella Antibodies, IgG 1.22 index Normal Immune >0.99 [facility] Comment on above: Result Comment: Non- immune <0.90 Equivocal 0.90 - 0.99 Immune >0.99 Performed By: #### U RCX #### [facility] [address] [place] [address] Dr. Paula Hernandez CBC AUTO DIFFon 08-09-2022 BASO # 0.0 103/ul Normal 0.0-0.1 [facility] Comment on above: Performed By: #### U RCX #### [facility] [address] [place] [address] Dr. Paula Hernandez Basophils/100 WBC (Bld) 0.4 % Normal 0.2-2.0 [facility] Comment on above: Performed By: #### U RCX #### [facility] [address] [place] [address] Dr. Paula Hernandez EO # 0.2 103/ul Normal 0.0-0.7 [facility] Comment on above: Performed By: #### U RCX #### [facility] [address] [address] [address] Paula Hernandez Eosinophils/100 WBC (Bld) 1.8 % Normal 0.9-7.0 [facility] Comment on above: Performed By: #### U RCX #### [facility] [address] [place] [address] Dr. Paula Hernandez Erythrocyte distribution width (RBC) [Ratio] 12.2 % Normal 11.0-15.0 [facility] Comment on above: Performed By: #### U RCX #### [facility] [address] [place] [address] Dr. Paula Hernandez Hematocrit (Bld) [Volume fraction] 35.6 % Critically low 36.0-48.0 [facility] Comment on above: Performed By: #### U RCX #### [facility] [address] [place] [address] Dr. Paula Hernandez Hemoglobin (Bld) [Mass/Vol] 11.5 g/dL Critically low 12.0-16.0 [facility] Comment on above: Performed By: #### U RCX #### [facility] [address] [place] [address] Dr. Paula Hernandez IG # 0.05 10e3/ul Critically high 0.00-0.03 [facility] Comment on above: Performed By: #### U RCX #### [facility] [address] [place] [address] Dr. Paula Hernandez IG % 0.5 % Normal 0.0-0.5 [facility] Comment on above: Performed By: #### U RCX #### [facility] [address] [place] [address] Dr. Paula Hernandez LYMPH # 1.8 103/ul Normal 1.2-3.8 [facility] Comment on above: Performed By: #### U RCX #### [facility] [address] [place] [address] Dr. Paula Hernandez Lymphocytes/100 WBC (Bld) 16.9 % Critically low 20.5-60.0 [facility] Comment on above: Performed By: #### U RCX #### [facility] [address] [address] [address] Paula Hernandez MANUAL DIFF REQ NO Normal [facility] Comment on above: Performed By: #### U RCX #### [facility] [address] [place] [address] Dr. Paula Hernandez MCH (RBC) [Entitic mass] 29.9 pg Normal 26.7-34.0 [facility] Comment on above: Performed By: #### U RCX #### [facility] [address] [place] [address] Dr. Paula Hernandez MCHC (RBC) [Mass/Vol] 32.3 g/dL Normal 29.9-35.2 [facility] Comment on above: Performed By: #### U RCX #### [facility] [address] [place] [address] Dr. Paula Hernandez MCV (RBC) [Entitic vol] 92.7 fL Normal 81.0-99.0 [facility] Comment on above: Performed By: #### U RCX #### [facility] [address] [place] [address] Dr. Paula Hernandez MONO # 1.2 103/ul Critically high 0.3-0.8 [facility] Comment on above: Performed By: #### U RCX #### [facility] [address] [place] [address] Dr. Paula Hernandez Monocytes/100 WBC (Bld) 11.1 % Normal 1.7-12.0 [facility] Comment on above: Performed By: #### U RCX #### [facility] [address] [place] [address] Dr. Paula Hernandez NEUT # 7.5 103/ul Critically high 1.4-6.5 [facility] Comment on above: Performed By: #### U RCX #### [facility] [address] [place] [address] Dr. Paula Hernandez Neutrophils/100 WBC (Bld) 69.3 % Normal 43.0-75.0 [facility] Comment on above: Performed By: #### U RCX #### [facility] [address] [address] [address] Paula Hernandez Platelet mean volume (Bld) [Entitic vol] 9.5 fL Normal 9.5-13.5 [facility] Comment on above: Performed By: #### U RCX #### [facility] [address] [address] [address] Paula Hernandez PLT 359 103/ul Normal 150-450 [facility] Comment on above: Performed By: #### U RCX #### [facility] [address] [address] [address] Paula Hernandez RBC 3.84 106/ul Critically low 4.20-5.40 [facility] Comment on above: Performed By: #### U RCX #### [facility] [address] [place] [address] Dr. Paula Hernandez WBC 10.7 103/ul Normal 4.0-11.0 [facility] Comment on above: Performed By: #### U RCX #### [facility] [address] [address] [address] Paula Hernandez GLYCOHEMOGLOBIN A1Con 2021 ADA RECOMMENDATION SEE BELOW Normal [facility] Comment on above: Result Comment: ADA RECOMMENDED LIMIT 4.0 - 6.0 ADA THERAPEUTIC TARGET < 7.0 ACTION SUGGESTED > 7.0 Performed By: #### U RCX #### [facility] [address] [address] [address] Paula Hernandez Glucose [Mass/Vol] 94 mg/dL Normal [facility] Comment on above: Performed By: #### U RCX #### [facility] [address] [address] [address] Paula Hernandez HbA1c (Bld) [Mass fraction] 4.9 % Normal 4.5-6.2 [facility] Comment on above: Performed By: #### U RCX #### [facility] [address] [address] [address] Paula Hernandez TYPE AND SCREENon 10-15-2022 TYPE AND SCREEN Negative Normal [facility] Comment on above: Performed By: #### T NS #### [facility] [address] [address] [address] Paula Hernandez US PREG TVon 07-24-2022 [...] AP CASTILLO Date: 2022-07-24 16:28 Normal [facility] COMPREHENSIVE METABOLIC PANE Julio C 05-03-2021 Albumin [Mass/Vol] 4.4 g/dL Normal 3.6-5.1 [facility] Comment on above: Performed By: #### 1 023, 0 #### [facility] [place] [address] Recreation Superintendent: Mukesh Snow MD Albumin/Globulin [Mass ratio] 1.6 {ratio} Normal 1.0-2.5 [facility] Comment on above: Performed By: #### 1 230, 0 #### [facility] [place] [address] Recreation Superintendent: Mukesh Snow MD ALP [Catalytic activity/Vol] 57 U/L Normal 31-125 [facility] Comment on above: Performed By: #### 1 0231, 7600 #### [facility] [place] [address] Recreation Superintendent: Mukesh Snow MD ALT [Catalytic activity/Vol] 9 U/L Normal 6-29 [facility] Comment on above: Performed By: #### 1 0231, 0 #### [facility] of [place] [address] Recreation Superintendent: Mukesh Snow MD AST [Catalytic activity/Vol] 13 U/L Normal 10-30 [facility] Comment on above: Performed By: #### 1 0231, 7600 #### [facility] of [place] [address] Recreation Superintendent: Mukesh Snow MD Bilirubin [Mass/Vol] 0.3 mg/dL Normal 0.2-1.2 [facility] Comment on above: Performed By: #### 1 023, 7600 #### [facility] of [place] [address] Recreation Superintendent: Mukesh Snow MD BUN/CREATININE RATIO NOT APPLICABLE Normal 6-22 [facility] Comment on above: Performed By: #### 1 023, 7600 #### [facility] of [place] [address] Recreation Superintendent: Mukesh Snow MD Calcium [Mass/Vol] 9.2 mg/dL Normal 8.6-10.2 [facility] Comment on above: Performed By: #### 1 0231, 7600 #### [facility] of [place] [address] Recreation Superintendent: Mukesh Snow MD Chloride [Moles/Vol] 105 mmol/L Normal 98-110 [facility] Comment on above: Performed By: #### 1 0231, 7600 #### [facility] of [place] [address] Recreation Superintendent: Mukesh Snow MD CO2 [Moles/Vol] 25 mmol/L Normal 20-32 [facility] Comment on above: Performed By: #### 1 0231, 7600 #### [facility] of [place] [address] Recreation Superintendent: Mukesh Snow MD Creatinine [Mass/Vol] 1.00 mg/dL Normal 0.50-1.10 [facility] Comment on above: Performed By: #### 1 023, 7600 #### [facility] of [address], [address] [place] [address] Recreation Superintendent: Mukesh Snow MD eGFR NON-AFR. SPANISH 75 mL/min/1.73m2 Normal > OR = 60 [facility] Comment on above: Performed By: #### 1 023, 7600 #### [facility] of [address], [address] [place] [address] Recreation Superintendent: Mukesh Snow MD GFR/1.73 sq M.predicted among blacks MDRD (S/P/Bld) [Vol rate/Area] 87 mL/min/{1.73_m2} Normal > OR = 60 [facility] Comment on above: Performed By: #### 1 230, 7600 #### [facility] [place] [address] Recreation Superintendent: Mukesh Snow MD Globulin (S) [Mass/Vol] 2.8 g/dL Normal 1.9-3.7 [facility] Comment on above: Performed By: #### 1 230, 7600 #### [facility] [place] [address] Recreation Superintendent: Mukesh Snow MD Glucose [Mass/Vol] 82 mg/dL Normal 65-139 [facility] Comment on above: Result Comment: Non-fasting reference interval Performed By: #### 1 230, 7600 #### [facility] of [place] [address] Recreation Superintendent: Mukesh Snow MD Potassium [Moles/Vol] 3.9 mmol/L Normal 3.5-5.3 [facility] Comment on above: Performed By: #### 1 023, 7600 #### [facility] of [place] [address] Recreation Superintendent: Mukesh Snow MD Protein [Mass/Vol] 7.2 g/dL Normal 6.1-8.1 [facility] Comment on above: Performed By: #### 1 023, 7600 #### [facility] [address], [address] [place] [address] Recreation Superintendent: Mukesh Snow MD Sodium [Moles/Vol] 137 mmol/L Normal 135-146 [facility] Comment on above: Performed By: #### 1 0231, 7600 #### [facility] [address], [address] [place] [address] Recreation Superintendent: Mukesh Snow MD Urea nitrogen [Mass/Vol] 10 mg/dL Normal 7-25 [facility] Comment on above: Performed By: #### 1 0231, 7600 #### [facility] [address], [address] [place] [address] Recreation Superintendent: Mukesh Snow MD LIPID PANEL, [facility] 0 Cholesterol [Mass/Vol] 224 mg/dL High <200 [facility] Comment on above: Order Comment: FASTI NG:NO FASTING: NO Performed By: #### 1 0231, 7600 #### [facility] [address], [address] [place] [address] Recreation Superintendent: Mukesh Snow MD Cholesterol in HDL [Mass/Vol] 62 mg/dL Normal > OR = 50 [facility] Comment on above: Order Comment: FASTI NG:NO FASTING: NO Performed By: #### 1 023, 7600 #### [facility] [address], [address] [place] [address] Recreation Superintendent: Mukesh Snow MD Cholesterol in LDL [Mass/Vol] [...] LDL-C. Jose CÁRDENAS et al. CARLOZ. 2013;310(19): 2367-6889 (http://education.SoothEase/faq/UDX398) Performed By: #### 1 023, 7600 #### [facility] [address], [address] [place] [address] Recreation Superintendent: Mukesh Snow MD Cholesterol.total/Ch olesterol in HDL [Mass ratio] 3.6 {ratio} Normal <5.0 [facility] Comment on above: Order Comment: FASTI NG:NO FASTING: NO Performed By: #### 1 023, 7600 #### [facility] [address], [address] [place] [address] Recreation Superintendent: Mukesh nSow MD NON HDL CHOLESTEROL 162 mg/dL (calc) High <130 [facility] Comment on above: Order Comment: FASTI NG:NO FASTING: NO Result Comment: For patients with diabetes plus 1 major ASCVD risk factor, treating to a non-HDL-C goal of <100 mg/dL (LDL-C of <70 mg/dL) is considered a therapeutic option. Performed By: #### 1 023, 7600 #### [facility] [address], [address] [place] [address] Recreation Superintendent: Mukesh Snow MD Triglyceride [Mass/Vol] 155 mg/dL High <150 [facility] Comment on above: Order Comment: FASTI NG:NO FASTING: NO Performed By: #### 1 023, 7600 #### [facility] [address], [address] [place] [address] Recreation Superintendent: Mukesh Snow MD Vital Signs Date Time Vital Sign Value Performing Clinician Facility 08-19-2024 10:07040 Body height 152.4 cm Alexsander Farnsworth DO [facility] 08-19-2024 10:07-0400 Body mass index (BMI) [Ratio] 21.87 kg/m2 Alexsander Farnsworth DO Work Phone: [facility] 08-19-2024 10:07-0400 Body temperature 97.7 [degF] Alexsander Farnsworth DO Work Phone: [facility] 08-19-2024 10:07-0400 Body weight 50.8 kg Alexsander Yuhas DO Work Phone: [facility] 08-19-2024 10:07-0400 Diastolic blood pressure 78 mm[Hg] Alexsander Yuhas DO Work Phone: [facility] 08-19-2024 10:07-0400 Heart rate 106 /min Alexsander Stephensonhas DO Work Phone: [facility] 08-19-2024 10:07-0400 Respiratory rate 18 /min Alexsander Yuhas DO Work Phone: [facility] 08-19-2024 10:07-0400 SaO2% (BldA) [Mass fraction] 100 % Alexsander Stephensonhas DO Work Phone: [facility] 08-19-2024 10:07-0400 Systolic blood pressure 100 mm[Hg] Alexsander Stephensonhas DO Work Phone: [facility] 06-24-2024 11:07-0400 Body height 152.4 cm Alexsander Yuhas DO Work Phone: [facility] 06-24-2024 11:07-0400 Body mass index (BMI) [Ratio] 20.94 kg/m2 Alexsander Stephensonhas DO Work Phone: [facility] 06-24-2024 11:07-0400 Body temperature 99.19 [degF] Alexsander Stephensonhas DO Work Phone: [facility] 06-24-2024 11:07-0400 Body weight 48.63 kg Alexsander Yuhas DO Work Phone: [facility] 06-24-2024 11:07-0400 Diastolic blood pressure 62 mm[Hg] Alexsander Yuhas DO Work Phone: [facility] 06-24-2024 11:07-0400 Heart rate 76 /min Alexsander Stephensonhas DO Work Phone: [facility] [employer] [facility] 06-24-2024 11:07-0400 Respiratory rate 18 /min Alexsander Stephensonhas DO Work Phone: [facility] 06-24-2024 11:07-0400 SaO2% (BldA) [Mass fraction] 99 % Alexsander Stephensonhas DO Work Phone: [facility] [employer] [facility] 06-24-2024 11:07-0400 Systolic blood pressure 90 mm[Hg] Alexsander Yuhas DO Work Phone: [facility] 05-16-2024 15:10-0400 Body height 152.4 cm Alexsander Stephensonhas DO Work Phone: [facility] 05-16-2024 15:10-0400 Body mass index (BMI) [Ratio] 21.46 kg/m2 Alexsander Stephensonhas DO Work Phone: [facility] [employer] [facility] 05-16-2024 15:10-0400 Body temperature 97.59 [degF] Alexsander Stephensonhas DO Work Phone: [facility] 05-16-2024 15:10-0400 Body weight 49.85 kg Alexsander Stephensonhas DO Work Phone: [facility] 05-16-2024 15:10-0400 Diastolic blood pressure 64 mm[Hg] Alexsander Stephensonhas DO Work Phone: [facility] [employer] [facility] 05-16-2024 15:10-0400 Heart rate 93 /min Alexsander Stephensonhas DO Work Phone: [facility] [employer] [facility] 05-16-2024 15:10-0400 Respiratory rate 18 /min Alexsander Stephensonhas DO Work Phone: [facility] 05-16-2024 15:10-0400 SaO2% (BldA) [Mass fraction] 100 % Alexsander Stephensonhas DO Work Phone: [facility] [employer] [facility] 05-16-2024 15:10-0400 Systolic blood pressure 100 mm[Hg] Alexsander Yuhas DO [facility] 01-25-2024 11:21-0400 Body height 152.4 cm Kira Berry LABORER/[employer] Work Phone[facility] 01-25-2024 11:21-0400 Body mass index (BMI) [Ratio] 21.33 kg/m2 Kira Berry LABORER/[employer] [facility] 01-25-2024 11:21-0400 Body temperature 98.1 [degF] Kira Berry LABORER/GRADE CHECK[employer]MAN [facility] 01-25-2024 11:21-0400 Body weight 49.53 kg Kira Berry LABORER/GRADE CHECK[employer]MAN [facility] 01-25-2024 11:21-0400 Diastolic blood pressure 64 mm[Hg] Kira Berry LABORER/GRADE CHECK[employer]MAN [facility] 01-25-2024 11:21-0400 Heart rate 64 /min Kira Berry LABORER/GRADE CHECK[employer] FI[employer]MAN [facility] 01-25-2024 11:21-0400 Respiratory rate 18 /min Kira Berry LABORER/GRADE CHECK[employer] FI[employer]MAN [facility] 01-25-2024 11:21-0400 SaO2% (BldA) [Mass fraction] 97 % Kira Berry LABORER/GRADE CHECK[employer]MAN [facility] 01-25-2024 11:21-0400 Systolic blood pressure 110 mm[Hg] Kira Berry LABORER/GRADE CHECK[employer]MAN [facility] Phone[facility] Encounters Encounter Date Encounter Type Care Provider Facility Start: 12-20-2024 End: 12-20-2024 Clinisync Result Encounter Carlos Rachel DO Work Phone: [facility] Unsolicited Start: 12-20-2024 End: 12-20-2024 Clinisync Result Encounter Carlos Rachel DO Work Phone: [facility] Unsolicited Start: 12-19-2024 End: 12-19-2024 Bamboo flowsheet Carlos Rachel DO Work Phone: [facility] Start: 12-19-2024 End: 12-19-2024 Bamboo flowsheet Carlos Rachel DO Work Phone: [facility] Start: 12-19-2024 End: 12-19-2024 ambulatory CARLOS RACHEL Not Available Start: 12-18-2024 End: 12-18-2024 ambulatory Ellis Mckeon [facility] Work Phone: Start: 12-18-2024 End: 12-18-2024 Departed Referred Ellis Mckeon DO Work Phone: [facility] Start: 11-28-2024 End: 11-28-2024 Clinisync Result Encounter Carlos Rachel DO Work Phone: [facility] External [facility] Unsolicited Start: 11-28-2024 End: 11-28-2024 Clinisync Result Encounter Carlos Rachel DO Work Phone: [facility] Unsolicited Start: 11-18-2024 End: 11-18-2024 Office outpatient visit 5 minutes [facility] Rachel Nurse [facility] Comment on above: GA: 10w0d Start: 11-18-2024 End: 11-18-2024 ambulatory CARLOS RACHEL Not Available Start: 08-19-2024 End: 08-19-2024 ambulatory [facility] Start: 08-19-2024 End: 08-19-2024 Office outpatient visit 25 minutes Alexsander Farnsworth DO Work Phone: [facility] Comment on above: Orthostatic hypotens ion (Primary Dx); Palpitations; Benign paroxysmal positional vertigo, unspecified laterality; Upper respiratory symptom Start: 06-28-2024 End: 07-06-2024 Telephone encounter Alexsander Farnsworth DO Work Phone: [facility] Start: 06-24-2024 End: 06-24-2024 Office outpatient visit 25 minutes Alexsander Farnsworth DO Work Phone: [facility] Comment on above: Orthostatic hypotens ion (Primary Dx); Palpitations Start: 06-24-2024 End: 06-24-2024 ambulatory [facility] Start: 06-17-2024 End: 06-17-2024 ambulatory [facility] Start: 06-03-2024 End: 06-03-2024 ambulatory [facility] Start: 05-16-2024 End: 05-16-2024 ambulatory [facility] Start: 05-16-2024 End: 05-16-2024 Office outpatient visit 25 minutes Alexsander Farnsworth DO Work Phone: [facility] Comment on above: Orthostatic hypotens ion (Primary Dx); Palpitations Start: 05-16-2024 End: 05-16-2024 ambulatory [facility] Start: 01-25-2024 End: 01-25-2024 Office outpatient visit 15 minutes Leonie Roderickjim LABORER/GRADE CHECK[employer] FI[employer]MAN Work Phone: [facility] Comment on above: Pharyngitis, unspeci fied etiology (Primary Dx); Flu-like symptoms; Gastroenteritis; Dizziness Start: 01-25-2024 End: 01-25-2024 ambulatory [facility] Start: 03-11-2023 End: 03-11-[address] ALEXSANDER FARNSWORTH Facility:[facility] Start: 03-05-2023 End: 03-07-2023 Evaluation and management of inpatient DR CARLOS RAMOS . Facility:[facility] Start: 02-11-2023 End: 02-11-[address] CARLOS RAMOS . Facility:[facility] Start: 12-17-2022 End: 12-18-[address] CARLOS RAMOS . Facility:[facility] Start: 12-09-2022 End: 12-09-[address] ALEXSANDER FARNSWORTH Facility:[facility] Start: 11-27-2022 Encounter for gynecological examination (general) (routine) without abnormal findings DR CARLOS RAMOS . [facility] Start: 11-26-2022 End: 11-26-[address] CARLOS RAMOS . Facility:[facility] Start: 11-26-2022 End: 11-26-2022 Encounter for gynecological examination (general) (routine) without abnormal findings DR CARLOS RAMOS . Facility:[facility] Start: 11-10-2022 End: 11-11-[address] CARLOS RAMOS . Facility:[facility] Start: 10-21-2022 End: 10-22-[address] CARLOS RAMOS . Facility:[facility] Start: 10-11-2022 End: 10-11-2022 ambulatory J CARLOS VILLA . Facility:[facility] Start: 08-09-2022 End: 08-10-[address] CARLOS RAMOS . Facility:[facility] Start: 07-24-2022 End: 07-25-[address] CARLOS RAMOS . Facility: Procedures Date Procedure Procedure Detail Performing Clinician Start: 12-20-2024 Antibody screen Carlos F azio DO Work Phone: Start: 12-20-2024 ALL TYPE AND SCREEN Cor ey Rachel DO Work Phone: Start: 11-28-2024 ALL CBC WITH AUTO DIFF Carlos Rachel DO Work Phone: Start: 11-18-2024 Urnls dip stick/tabl et rgnt non-auto w/o micrscp Carlos Rachel DO Work Phone: Start: 08-19-2024 POCT INFLUENZA A/INF LUENZA B/SARS-COV-2 VERITOR Alexsander Farnsworth DO Work Phone: Start: 08-19-2024 Iaadiadoo streptococ cus group a Alexsander Farnsworth DO Work Phone: Start: 08-19-2024 Adult depression scr eening assessment Alexsander Farnsworth DO Work Phone: Start: 05-16-2024 Adult depression scr eening assessment Alexsander Farnsworth DO Work Phone: Start: 01-25-2024 POCT INFLUENZA A/INF LUENZA B/SARS-COV-2 VERITOR Kira Berry LABORER/GRADE CHECK[employer] FI[employer]MAN Work Phone: Start: 01-25-2024 Iaadiadoo streptococ cus group a Kira Berry LABORER/GRADE CHECK[employer] FIREMAN Work Phone: Start: 01-25-2024 Adult depression scr eening assessment Kira Berry LABORER/GRADE CHECK[employer]MAN Work Phone: Start: 03-06-2023 Transfusion of Nonautologous Red Blood Cells into Peripheral Vein, Percutaneous Approach [facility] . Start: 03-05-2023 Extraction of Produc ts of Conception, Low Cervical, Open Approach [facility] . Plan of Treatment Date Care Activity Detail Author Start: 08-19-2025 Adult BMI Screening Adult BMI Screen ing [facility] Start: 08-19-2025 Depression Screening Depression Scre ening [facility] Start: 08-19-2025 Tobacco Screening Tobacco Screening [facility] Start: 06-24-2025 Adult BMI Screening Adult BMI Screen ing [facility] Start: 06-24-2025 Tobacco Screening Tobacco Screening [facility] Start: 05-16-2025 Adult BMI Screening Adult BMI Screen ing [facility] Start: 05-16-2025 Depression Screening Depression Scre ening [facility] Start: 05-16-2025 Tobacco Screening Tobacco Screening [facility] Start: 01-24-2025 Adult BMI Screening Adult BMI Screen ing [facility] Start: 01-24-2025 Depression Screening Depression Scre ening [facility] Start: 01-24-2025 Tobacco Screening Tobacco Screening [facility] Start: 12-19-2024 End: 12-19-2024 Patient encounter procedure [facility] Comment on above: Arrived Start: 12-18-2024 Bacteria identified in Urine by Culture Urine Culture [facility] Start: 12-18-2024 Urine culture [facility] Start: 11-18-2024 End: 11-18-2025 ABO/Rh ABO/Rh Lab Routine Missed menses , unspecified gestational age Expected: 11/18/2024 (Approximate), Expires: 11/18/2025 [facility] Comment on above: Expected: 11/18/2024 (Approximate), Expires: 11/18/2025 Start: 11-18-2024 End: 11-18-2025 Blood type and Indirect antibody screen panel - Blood Type and screen Lab Routine Missed menses , unspecified gestational age Expected: 11/18/2024 (Approximate), Expires: 11/18/2025 [facility] Comment on above: Expected: 11/18/2024 (Approximate), Expires: 11/18/2025 Start: 11-18-2024 End: 11-18-2025 Drugs of abuse panel - Urine by Screen method Rapid drug screen, urine Lab Routine , unspecified gestational age Encounter for supervision of normal first in first trimester Expected: 11/18/2024 (Approximate), Expires: 11/18/2025 [facility] Comment on above: Expected: 11/18/2024 (Approximate), Expires: 11/18/2025 Start: 11-17-2024 End: 11-17-2025 US Pelvis transvaginal US OB transvaginal Imaging Routine Missed menses Expected: 11/17/2024, Expires: 11/17/2025 [facility] Work Phone: Comment on above: Expected: 11/17/2024 , Expires: 11/17/2025 Start: 08-19-2024 End: 08-19-2024 Patient encounter procedure 08/19/2024 10:00 AM EDT [facility] [address] [place] [address] Alexsander Farnsworth DO [address] [place] [address] [facility] Start: 06-26-2024 COVID-19 Vaccine () COVID-19 Vaccine () [facility] Start: 06-26-2024 Influenza vaccination [facility] Start: 06-24-2024 End: 06-24-2024 Patient encounter procedure 06/24/2024 11:00 AM EDT [facility] [address] [place] [address] Alexsander Farnsworth DO [address] [facility] [place] [address] [facility] Start: 05-16-2024 End: 05-16-2025 Echo complete W/O contrast Echo complete W/O contrast Echocardiography Routine Orthostatic hypotension Expected: 05/16/2024, Expires: 05/16/2025 [facility] Comment on above: Expected: 05/16/2024 , Expires: 05/16/2025 Start: 05-16-2024 End: 05-16-2025 Event monitor Event monitor Cardiac Services Routine Orthostatic hypotension Expected: 05/16/2024, Expires: 05/16/2025 [facility] Comment on above: Expected: 05/16/2024 , Expires: 05/16/2025 Start: 10-07-2023 DTaP,Tdap and Td Vaccines (6 - Tdap) DTaP,Tdap and Td Vaccines (6 - Tdap) [facility] Start: 06-26-2023 COVID-19 Vaccine ( season) COVID-19 Vaccine () [facility] Start: 2020 Screening for malign ant neoplasm of cervix [facility] Start: 2011 Screening for malign ant neoplasm of cervix Pap Smear [facility] Start: 2009 DTaP,Tdap and Td Vaccines (1 - Tdap) DTaP,Tdap and Td Vaccines (1 - Tdap) [facility] Bacteria identified in Urine by Culture Urine culture Microbiology Routine Missed menses Ordered: 11/18/2024 [facility] Comment on above: Ordered: 11/18/2024 CBC W Auto Different ial panel - Blood CBC and differential Lab Routine Missed menses , unspecified gestational age Ordered: 11/18/2024 [facility] Comment on above: Ordered: 11/18/2024 End: 05-16-2025 CBC W Auto Differential panel - Blood CBC auto differential Lab Routine Palpitations 1 Occurrences starting 05/16/2024 until 05/16/2025 [facility] Comment on above: 1 Occurrences starti ng 05/16/2024 until 05/16/2025 End: 05-16-2025 Comprehensive metabolic 2000 panel - Serum or Plasma Comprehensive metabolic panel Lab Routine Palpitations 1 Occurrences starting 05/16/2024 until 05/16/2025 [employer] Phone: Comment on above: 1 Occurrences starti ng 05/16/2024 until 05/16/2025 End: 05-16-2025 Cyanocobalamin vitamin b-12 Vitamin B12 Lab Routine Palpitations 1 Occurrences starting 05/16/2024 until 05/16/2025 [facility] Comment on above: 1 Occurrences starti ng 05/16/2024 until 05/16/2025 Hemoglobin A1c/Hemoglobin.total in Blood Hemoglobin A1c Lab Routine Missed menses , unspecified gestational age Ordered: 11/18/2024 [facility] Comment on above: Ordered: 11/18/2024 Hepatitis B virus surface Ag [Presence] in Serum or Plasma by Immunoassay Hepatitis B surface antigen Lab Routine Missed menses , unspecified gestational age Ordered: 11/18/2024 [facility] Comment on above: Ordered: 11/18/2024 Hepatitis C virus Ab [Presence] in Serum or Plasma by Immunoassay Hepatitis C antibody Lab Routine Missed menses , unspecified gestational age Ordered: 11/18/2024 [facility] Comment on above: Ordered: 11/18/2024 HIV-1/HIV-2 antigen/antibody combination immunoassay HIV-1 and HIV-2 antibodies Lab Routine Missed menses , unspecified gestational age Ordered: 11/18/2024 [facility] Comment on above: Ordered: 11/18/2024 End: 05-16-2025 Iron and TIBC Iron and TIBC Lab Routine Palpitations 1 Occurrences starting 05/16/2024 until 05/16/2025 [facility] Comment on above: 1 Occurrences starti ng 05/16/2024 until 05/16/2025 Reagin Ab [Presence] in Serum by RPR RPR Lab Routine Missed menses , unspecified gestational age Ordered: 11/18/2024 [facility] Comment on above: Ordered: 11/18/2024 Rubella antibody, IgG Rubella an tibody, IgG Lab Routine Missed menses , unspecified gestational age Ordered: 11/18/2024 [facility] Comment on above: Ordered: 11/18/2024 End: 05-16-2025 TSH with Reflex TSH with Reflex Lab Routine Palpitations 1 Occurrences starting 05/16/2024 until 05/16/2025 [facility] Comment on above: 1 Occurrences starti ng 05/16/2024 until 05/16/2025 US Pelvis transvaginal US OB tra nsvaginal Imaging Routine Missed menses 11/18/2024 9:[address] [facility] Immunizations Immunization Date Immunization Notes Care Provider Sandrine soto 10-07-2013 diphtheria, tetanus toxoids and pertussis vaccine Alexsander Seemahas DO Work Phone: [facility] 05-14-1992 diphtheria, tetanus toxoids and pertussis vaccine Alexsander Yuhas DO Work Phone: [facility] 05-14-1992 poliovirus vaccine, unspecified formulation Alexsander Stephensonhas DO Work Phone: [facility] 07-11-1991 measles, mumps and rubella virus vaccine Alexsander Yuhas DO Work Phone: [facility] 1990 diphtheria, tetanus toxoids and pertussis vaccine Alexsander Yuhas DO Work Phone: [facility] 1990 poliovirus vaccine, unspecified formulation Alexsander Yuhas DO Work Phone: [facility] 1990 diphtheria, tetanus toxoids and pertussis vaccine Alexsander Yuhas DO Work Phone: [facility] 1990 diphtheria, tetanus toxoids and pertussis vaccine Alexsander Yuhas DO Work Phone: [facility] 1990 poliovirus vaccine, unspecified formulation Alexsander Yuhas DO Work Phone: [facility] Payers Date Payer Category Payer Self-pay 2022 Private Health Insurance [id number] 2022 Unknown [id number] 2003 Medicaid [id number] 1990 Unknown [id number] 2.16.84 [id number] 1990 Unknown [id number] 2.16.84 0.1.088510.3.579.2.593 1990 Unknown [id number] 2.16.84 0.1.503682.3.579.2.593 1990 Unknown [id number] 2.16.84 0.1.831993.3.579.2.593 1990 Unknown [id number] 2.16.84 0.1.123960.3.579.2.593 1990 Unknown [id number] 2.16.84 0.1.426719.3.579.2.593 1990 Unknown [id number] 2.16.84 0.1.229000.3.579.2.593 1990 Unknown [id number] 2.16.84 0.1.917468.3.579.2.593 1990 Unknown [id number] 2.16.84 0.1.910698.3.579.2.593 1990 Unknown [id number] 2.16.84 0.1.895071.3.579.2.593 1990 Unknown [id number] 2.16.84 0.1.580791.3.579.2.593 1990 Unknown [id number] 2.16.84 0.1.360724.3.579.2.593 1990 Unknown [id number] 2.16.8 40.1.523968.3.579.2.1286 1990 Unknown [id number] 2.16.8 40.1.844737.3.579.2.6 1990 Unknown [id number] 2.16.8 40.1.505186.3.579.2.6 1990 Unknown [id number] 2.16.8 40.1.967651.3.579.2.1285 1990 Unknown [id number] 2.16.8 40.1.960125.3.579.2.1285 1990 Unknown [id number] 2.16.8 40.1.779976.3.579.2.1285 1990 Unknown [id number] 2.16.8 40.1.066661.3.579.2.1285 1990 Unknown [id number] 2.16.84 0.1.586279.3.579.2.9 1990 Unknown [id number] 2.16.84 0.1.584894.3.579.2.9 1990 Unknown [id number] 2.16.84 0.1.570614.3.579.2.1259 1959 Unknown [id number] 1959 Unknown [id number] Unknown [id number] 2.16.8 40.1.605750.3.579.2.531 Social History Date Type Detail Facility Start: 04-17-2023 End: 05-13-2023 Tobacco smoking status FLIS Never smoked tobacco [facility] Start: 11-18-2024 End: 12-19-2024 Alcoholic beverage intake Lifetime non-drinker (finding) [facility] Start: 12-06-2020 End: 11-18-2024 History of Social function [facility] Start: 12-06-2020 End: 11-18-2024 Tobacco use panel [facility] Start: 09-23-2024 [facility] Start: 1990 Sex assigned at Not on file P [facility] Start: 05-13-2023 Tobacco use and exposure Smokeless tobacco non-user [facility] Start: 05-16-2024 End: 08-19-2024 Alcoholic beverage intake Current drinker of alcohol (finding) [facility] Adolescent depressio n screening assessment 0 [facility] Start: 05-13-2023 Alcohol Comment Occasional [facility] Start: 05-31-2015 End: 12-20-2024 Sex Female (finding) [facility] Tobacco smoking stat NHIS Unknown if ever smoked [facility] Work Phone: Start: 1990 Sex Assigned At Female F [facility] Goals Date Patient Goal Desired Activity /State Personal health goal Comment on above: Formatting of this n ote might be different from the original. Evaluation of progress towards goal: home w family Clinical Notes 03-05-2023 to 11-18-2024 Machelle Germain MA - 11/18/2024 9:30 AM Ted Farnsworth DO - 08/19/2024 10:00 AM EDTTelephone Encounter - Deann Elizalde - 06/28/2024 2:34 PM EDTAlexsander Farnsworth DO - 06/24/2024 11:00 AM EDT [...] or undercooked meat, and [facility]. Patient has also been advised to not [...] Machelle Germain MA documented in this encounter [facility] 08-19-2024 History of Presen t illness [...] unless symptoms worsen 4. 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 All [...] Testing No results found. Alexsander Farnsworth DO., [facility] Office: [phone] documented in this encounter [facility] 06-28-2024 Miscellaneous Notes Formattin g of this note might be different from the original. Where do compression stockings need to be sent Message noted. Wherever she wants them sent. Her choice of DME supplier is [facility] or [employer] Lm on vm going to [facility] documented in this encounter [facility] 06-28-2024 Telephone encount er Note Where do compression stockings need to be sent [facility] 06-28-2024 Telephone encount er Note Message noted. Wherever she wants them sent. Her choice of DME supplier is [facility] or [employer] [facility] 06-28-2024 Telephone encount er Note Lm on vm [facility] 06-28-2024 Telephone encount er Note going to [facility] 06-24-2024 History of Presen t illness Narrative IM PROGRESS NOTE Patient - Marilee Mercado Age - 34 y.o. - 1990 [facility] # - [id number] ASSESSMENT & PLAN 1. Orthostatic hypotension -I reviewed the results of her recent testing with the patient. No obvious reason for the orthostasis on echo. -we will have her increase her sodium intake on a daily basis. A printed sheet with sodium values for foods was given to the patient, and she should try to get at least 4403-1130 g sodium daily. -in addition, needs to [...] 06/17/2024 201.00 msec Final MV Peak E Dominic 06/17/2024 82.70 cm/s Final MV Peak A Dominic 06/17/2024 64.70 cm/s Final LA size 06/17/2024 2.60 cm Final Aortic root 06/17/2024 2.40 cm Final LA volume 06/17/2024 33.70 cm3 Final RV diastolic dimension (basal) 06/17/2024 27.0 mm Final TAPSE 06/17/2024 2.03 cm Final AV peak dominic 06/17/2024 144.00 cm/s Final LVOT peak dominic 06/17/2024 1.00 m/s Final AV VTI 06/17/2024 [...] method 06/17/2024 3.73 cm2 Final TR Peak Dominic 06/17/2024 2.0 m/s Final TR peak gradient 06/17/2024 16.00 mmHg Final Inferior Vena Cava Diameter 06/17/2024 0.80 cm Final LV ESV A2C 06/17/2024 37.60 mL Final LV ESV A4C 06/17/2024 28.50 mL Final LV RWT 2D 06/17/2024 29.27 Final Echo EF Estimated 06/17/2024 64 % Final AV Velocity Ratio 06/17/2024 0.75 Final IVC proximal 06/17/2024 8 cm Final Left Ventricle Mass 06/17/2024 74.775492007334798 g Final Interventricular Septum Diastolic * 06/17/2024 [...] No significant valvular abnormalities.. Alexsander Farnsworth DO., [facility] Office: [phone] documented in this encounter [facility] [facility] 05-16-2024 History of Presen t illness Narrative [...] or blacked out. -she currently works at [employer] the [employer], and drinks at least 90-100 oz of [...] Testing No results found. Alexsander Farnsworth DO., [facility] Office: [phone] documented in this encounter [facility] 01-25-2024 History of Presen t illness Narrative [...] work 01/24- 01/31 she may return 02/01 LeonieRICK Viera 01/25/24 1212 documented in this encounter [facility] 03-05-2023 Note DISCHARGE SUMMARY DISCHARGE DATE: [...] free and no longer on narcotics. [facility] 03-05-2023 Note OPERATIVE NOTE OPERATION DATE: 03/05/2023 PROCEDURE: Repeat low transverse section. PREOPERATIVE DIAGNOSIS: 1. Previous . 2. Intrauterine at 39 weeks. 3. Chronic anemia. POSTOPERATIVE DIAGNOSIS: 1. Previous . 2. Intrauterine at 39 weeks. 3. Chronic anemia. ANESTHESIA: Spinal with Duramorph. SURGEON: Carlos Ramos D.O. CEO NA: LANA Garrido URINE OUTPUT: Yellow and clear. [...] the Recovery Room in stable condition. [facility] Evaluation note Diagnosis Missed menses 10 weeks gestation of , unspecified gestational age Encounter for supervision of normal first in first trimester documented [facility]* Diagnosis Orthostatic hypotension- Primary Palpitations [facility] Diagnosis Pharyngitis, unspecified etiology- Primary Flu-like symptoms Gastroenteritis Other and unspecified noninfectious gastroenteritis and colitis Dizziness Dizziness and giddiness [facility] Diagnosis Orthostatic hypotension- Primary Palpitations [facility]* Diagnosis Orthostatic hypotension- Primary Palpitations Benign paroxysmal positional vertigo, unspecified laterality Upper respiratory symptom documented in this encounter [facility] noteNo assessment information available [facility] Work Phone: InstructionsNot on filedocumented in this encounter [facility] filedocumented in this encounter [facility]ructionsNot on filedocumented in this encounter [facility]ructionsNot on filedocumented in this encounter [facility] Summary Purpose Family History No [...] W/O contrast Alexsander Farnsworth, DO [address] [place] [address] Referral ID Status Reason Start Date Expiration Date V isits Requested Visits Authorized [id number] Pending Review 05/16/2024 05/16/2025 1 1 Additional Source Comments INFORMATION SOURCE (unrecogn ized section and content) DATE CREATED AUTHOR 08/25/2021 [facility] DATE CREATED AUTHOR AUTHOR'S ORGANIZ ATION 04/03/2023 [facility] DATE CREATED AUTHOR AUTHOR'S ORGANIZ ATION 05/19/[address] [facility] DATE CREATED AUTHOR AUTHOR'S ORGANIZ ATION 06/19/2024 [facility] DATE CREATED AUTHOR AUTHOR'S ORGANIZ ATION 08/21/2024 [facility] DATE CREATED AUTHOR AUTHOR'S ORGANIZ ATION 12/20/2024 [facility] EPIC DATE CREATED AUTHOR AUTHOR'S ORGANIZ ATION 12/21/2024 [facility] Reason for Visit (unrecogniz ed section and content) Reason Comments Amenorrhea Reason Comments low bp 86/66 Work medical form Reason Comments Sore Throat Vomiting Headache Pt been sick since.1 day Reason Comments BP/ test results Reason Comments bp, sinus Sore Throat 4 days Care Teams (unrecognized sec tion and content) Boil Off Worker Relationship Specialty Start Date End Date Alexsander Farnsworth MD [address] [place] [address] PCP - General Internal Medicine 04/14/23 Boil Off Worker Relationship Specialty Start Date End Date Alexsander Farnsworth MD [address] [place] [address] PCP - General Internal Medicine 04/14/23 Boil Off Worker Relationship Specialty Start Date End Date Alexsander Farnsworth DO [address] [place] [address] PCP - General Internal Medicine 05/13/17 Boil Off Worker Relationship Specialty Start Date End Date Alexsander Farnsworth DO [address] [place] [address] PCP - General Internal Medicine 05/13/17 Boil Off Worker Relationship Specialty Start Date End Date Alexsander Farnsworth DO [address] [place] [address] PCP - General Internal Medicine 05/13/17 Boil Off Worker Relationship Specialty Start Date End Date Alexsander Farnsworth DO [address] [place] [address] PCP - General Internal Medicine 05/13/17 Boil Off Worker Relationship Specialty Start Date End Date Alexsander Farnsworth DO [address] [place] [address] PCP - General Internal Medicine 05/13/17 Boil Off Worker Relationship Specialty Start Date End Date Alexsander Farnsworth MD [address] [place] [address] PCP - General Internal Medicine 04/14/23 Team Status: Inactive Member Role Status Dates Ellis Alma Rosa DO Mike Attending Provider Active Start: December 18, 2024 End: December 18, 2024 Boil Off Worker Relationship Specialty Start Date End Date Alexsander Farnsworth MD [address] [place] [address] PCP - General Internal Medicine 04/14/23 Goals (unrecognized section and content) Goals may [...] BE BASED ON THE PRIMARY CLINICAL RECORDS. [employer] provides no warranty or guarantee of the accuracy or completeness of information in this document.
[2024-12-22 06:23] LABS: Basophils Percent Auto 0.2 % (0.2-2.0); Eosinophils Absolute Auto 0.2 10^3/uL (0.0-0.7); Eosinophils Percent Auto 2.3 % (0.9-7.0); Hematocrit 36.7 % (36.0-48.0); Hemoglobin 12.2 g/dL (12.0-16.0); Immature Granulocytes Abs Auto 0.03 10^3/uL (0.00-0.03); Immature Granulocytes Pct Auto 0.4 % (0.0-0.5); Lymphocytes Absolute Auto 2.2 10^3/uL (1.2-3.8); Lymphocytes Percent Auto 27.5 % (20.5-60.0); Mean Corpuscular HGB Conc 33.2 g/dL (29.9-35.2); Mean Corpuscular Hemoglobin 29.3 pg (26.7-34.0); Mean Corpuscular Volume 88.2 fL (81.0-99.0); Mean Platelet Volume 9.2 fL (9.5-13.5); Monocytes Absolute Auto 0.6 10^3/uL (0.3-0.8); Monocytes Percent Auto 7.5 % (1.7-12.0); Neutrophils Percent Auto 62.1 % (43.0-75.0); Platelet Count 284 10^3/uL (150-450); Red Blood Count 4.16 10^6/uL (4.20-5.40); Red Cell Distribution Width 11.9 % (11.0-15.0); White Blood Count 8.1 10^3/uL (4.0-11.0)
[2024-12-22 06:25] VITALS: BP 124/81; PULSE 108; TEMP 36.2; O2SAT 100; BMI 21.4
[2024-12-22] MEDS: LACTATED RINGER'S SOLUTION 1,000 ML 50 ML IV (06:56)
[2024-12-22 06:58] LABS: HCG Quantitative 1975 mIU/mL
--- NOTE | 2024-12-22 07:40 | US_ITS ---
[address] [address] Patient Name: KARLA MERCADO MRN: [id number] date: 1990 Sex: F [facility]igned [facility] Current Patient Location: [facility] Accession/Order Number: [id number] Exam Date: 12/22/2024 10:16 Report Date: 12/22/2024 10:28 At the request of: NATASHA CARMICHAEL DO Procedure: US pelvis PELVIC ULTRASOUND CLINICAL DATA: Localization during D&C performed for 10 week demise COMPARISON: 12/18/2024 Real-time ultrasound evaluation of the pelvis was performed in the operating room with the referring physician present utilizing a transabdominal approach. Preprocedure, the gestational sac and fetus seen at the time of the comparison are again noted. During the procedure, fluid and echogenic debris are seen within the endometrial canal. On the final images, the endometrial canal appears empty. US/US pelvis IMPRESSION: NO OBVIOUS RESIDUAL PRODUCTS OF CONCEPTION FOLLOWING D&C. Impression dictated by: Izabella Webb M.D.12/22/2024 10:28 AM Dictation Location: [place] [address] Electronically authenticated by: [id number] Y Date: 12/22/2024 10:28
--- NOTE | 2024-12-22 08:15 | P.ON_ITS ---
Brief Operative Note Date of procedure: 12/22/24 Pre-op diagnosis general: missed , first trimester Post-op diagnosis: same as pre-op Procedure: NAME OF PROCEDURE: [D&C suction ] PROCEDURE: The patient was taken back to the OR where she was given general anesthesia without difficulty. She was then placed in dorsal lithotomy position, prepped and draped in the normal sterile fashion. A weighted speculum was placed in the patient's vagina and the anterior lip of the cervix was identified and grasped with a single-tooth tenaculum. The patient was then gently dilated using Hegar dilators after we had sounded roughly to 12 cm. The suction curette was then tested. The suction curette was then placed in the patient's uterus and products of conception were removed using an 10-[place] suction curette. ?Excellent hemostasis was noted. The patient tolerated the procedure well. Sponge, lap, and needle counts were correct x 2. All instruments were then removed from the patient's vagina. The patient was taken to the Recovery Room in stable condition. ?? Anesthesia: MAC Surgeon: Carlos Ramos Estimated blood loss (mL): 50 Pathology: other (poc) Condition: stable Disposition: PACU Urinary Catheter Management Urinary Catheter Management Urethral: Cath placed during this visit: no
[2024-12-22 08:19] VITALS: BP 99/68; PULSE 92; TEMP 36.8; O2SAT 96
[2024-12-22 08:34] VITALS: BP 106/71; PULSE 84; O2SAT 99
[2024-12-22 09:04] VITALS: BP 104/79; PULSE 73; O2SAT 100
[2024-12-22 09:34] VITALS: BP 103/63; PULSE 81; O2SAT 100
[2024-12-22 10:04] VITALS: BP 103/65; PULSE 77; O2SAT 100
== END 2024-12-22 10:20 | disposition home or self-care (01) ==
PROVIDERS: PCP Internal Medicine; Visit Provider Obstetrics & Gynecology
PROC: (CPT 1965; principal; 2024-12-22 07:30)
DX: O02.1 Missed abortion (principal); Z87.440 Personal history of urinary (tract) infections
CPT/HCPCS: 59820; 36415; 76856; 84702; 85025; 88305; J1100; J1885; J2250; J2405; J2590; J2704; J3010

== ENCOUNTER 2025-01-05 08:33 | Outpatient (RCR) | payer OTHER, SELFPAY ==
[2025-01-05 09:49] LABS: HCG Quantitative 11 mIU/mL
[2025-01-12 10:58] LABS: HCG Quantitative 3 mIU/mL
== END 2025-01-23 13:06 | disposition home or self-care (01) ==
LOC: LAB 08:33
PROVIDERS: PCP Internal Medicine; Visit Provider Obstetrics & Gynecology
DX: Z09 Encounter for follow-up examination after completed treatment for conditions other than malignant neoplasm (principal)
CPT/HCPCS: 36415; 84702